=== PATIENT | female | born 1975 | race Two or more races ===

== ENCOUNTER 2016-07-16 10:00 | Emergency (ER) | payer OTHER ==
[2016-07-16 10:09] VITALS: BMI 34.0
[2016-07-16] MEDS ORDERED: FAMOTIDINE 20 MG/50 ML IVPB 20 MG in PREMIX 50 IVPB ONE (10:44)
[2016-07-16] MEDS ORDERED: ONDANSETRON 4 MG/2 ML VIAL IVPB ONE (10:44)
[2016-07-16] MEDS ORDERED: SODIUM CHLORIDE 1,000 ML IV ONE ×2 (10:44→12:19)
--- NOTE | 2016-07-16 10:46 | PDOC ---
History of Present Illness - General History Source: Patient Exam Limitations: No Limitations - History of Present Illness Initial Comments: 07/16/16 12:01 The patient is a 40 year old female, , with a significant past medical history of Hodgkin's Disease in the remote past and HLD who present to the ED with abdominal pain, nausea, vomiting and diarrhea. She notes that she has twisting abdominal pain since yesterday associated with chills, nausea, vomiting and diarrhea. She reports several episodes of vomiting that was clear and yellow nonbloody. She states that she feels better for 10-15 minutes after each vomiting episode. She also reports several episodes of diarrhea that is watery and as clear and yellow in color. She notes that she has difficulty keeping anything down. Her LMP was 07/06. Patient also reports that she has intermittent burning chest pain after vomiting. She states that she was has not seen the air traffic control equipment repairer that her PMD referred her to. She denies any recent abx use. She reports recent sick contact with children with vomiting, no fever or diarrhea. She denies any fever, sob, melena/bpr, recent travel, exertional sypmtoms, leg swelling. Allergies - Sulfur Surgical Hx: C Section x3 Family Hx: Mother HTN <Radha Vasquez - Last Filed: 07/16/16 12:01> <Jovani Sims - Last Filed: 07/16/16 18:48> - General Chief Complaint: Chest Pain Stated Complaint: CHEST PAIN Time Seen by Provider: 07/16/16 10:14 Past History <Radha Vasquez - Last Filed: 07/16/16 12:01> - Past Medical History Anemia: Yes (HODGKIN DISEASE) Asthma: No Cancer: Yes (HODGKINS: 2002) Cardiac Disorders: No CVA: No COPD: No CHF: No Dementia: No Diabetes: No GI Disorders: No Disorders: No HTN: No Hypercholesterolemia: No Liver Disease: No Suicide Attempt (Hx): No Seizures: No Thyroid Disease: No - Surgical History Abdominal Surgery: Yes - Immunization History Td Vaccination: Yes Immunization Up to Date: Yes - Psycho/Social/Smoking Cessation Hx Anxiety: No Suicidal Ideation: No Smoking Status: Yes (ALBANIAN TOBACCO) Smoking History: Never smoked Number of Cigarettes Smoked Daily: 0 Hx Alcohol Use: No Drug/Substance Use Hx: No Substance Use Type: None Hx Substance Use Treatment: No <Jovani Sims - Last Filed: 07/16/16 18:48> - Past Medical History Allergies/Adverse Reactions: Allergies Allergy/AdvReac Type Severity Reaction Status Date / Time Sulfa (Sulfonamide Allergy Rash Verified 07/16/16 10:02 Antibiotics) Home Medications: Ambulatory Orders Ondansetron [Zofran -] 4 mg PO TID PRN #28 tablet 07/16/16 Abd/GI Specific PMHX - Complaint Specific PMHX GERD: No GI Ulcer Disease: No <Jovani Sims - Last Filed: 07/16/16 18:48> Review of Systems - Review of Systems Able to Perform ROS?: Yes Comments:: 07/16/16 12:02 CONSTITUTIONAL: No reported: Fever, Chills, Diaphoresis, Generalized Weakness, Malaise, Loss of Appetite HEENT: No reported: Rhinorrhea, Nasal Congestion, Throat Pain, Throat Swelling, Difficulty Swallowing, Mouth Swelling, Ear Pain, Eye Pain, Visual Changes CARDIOVASCULAR: Reported: chest pain No reported: Syncope, Palpitations, Irregular Heart Rate, Lightheadedness, Peripheral Edema RESPIRATORY: No reported: Cough, Shortness of Breath, SOB with Exertion, Orthopnea, Wheezing , Stridor, Hemoptysis GASTROINTESTINAL: Reported: abdominal pain, nausea, vomiting, diarrhea No reported: Abdominal Distension, Constipation, Melena, Hematochezia GENITOURINARY: No reported: Dysuria, Frequency, Urgency, Hesitancy, Flank Pain, Genital Pain MUSCULOSKELETAL: No reported: Myalgia, Arthralgia, Joint Swelling, Back pain, Neck Pain SKIN: No reported: Rash, Itching, Pallor HEMEATOLOGIC/IMMUNOLOGIC: No reported: Easy Bleeding, Easy Bruising, Lymphadenopathy, Frequent infections ENDOCRINE: No reported: Unexplained Weight Gain, Unexplained Weight Loss, Heat Intolerance , Cold Intolerance NEUROLOGIC: No reported: Headache, Focal Weakness, Paresthesias, Vertigo, Lightheadedness, Unsteady Gait, Seizure, Mental Status Changes, Incontinence PSYCHIATRIC: No reported: Anxiety, Depression <Radha Vasquez - Last Filed: 07/16/16 12:01> *Physical Exam - Vital Signs Last Vital Signs Temp Pulse Resp BP Pulse Ox 98.4 F 101 H 16 116/69 100 07/16/16 10:02 07/16/16 10:50 07/16/16 10:42 07/16/16 10:42 07/16/16 10:50 - Physical Exam Comments: 07/16/16 12:02 GENERAL: The patient is awake, alert, and fully oriented, Nontoxic - in no acute distress. HEAD: Normocephalic, atraumatic. EYES: extraocular movements intact, sclera anicteric, conjunctiva clear. ENT: Normal voice, Moist mucous membranes. NECK: Normal range of motion, supple LUNGS: Breath sounds equal, clear to auscultation bilaterally. No wheezes, no rhonchi, no rales. HEART: Regular rate and rhythm, without murmur, rub or gallop. ABDOMEN: +diffuse abdominal tenderness without focality. Soft, active bowel sounds, no rebound/guarding EXTREMITIES: Normal range of motion, no edema. No clubbing or cyanosis. No cords , erythema, or tenderness. NEUROLOGICAL: No facial asymmetry, Normal speech, moving all 4 extremities spontaneously and symmetrically PSYCH: Normal mood, normal affect. SKIN: Warm, Dry, normal turgor, <Radha Vasquez - Last Filed: 07/16/16 12:01> - Vital Signs Last Vital Signs Temp Pulse Resp BP Pulse Ox 98.4 F 112 H 19 159/102 100 07/16/16 10:02 07/16/16 10:02 07/16/16 10:02 07/16/16 10:02 07/16/16 10:02 <Jovani Sims - Last Filed: 07/16/16 18:48> Heart Score/ECG Review - ECG Impressions Comment:: 07/16/16 11:15 Twelve-lead EKG was performed and reviewed by me. There is normal sinus rhythm with a rate of 113 The axis is normal. The intervals are normal. There is normal R wave progression There are no ST or T wave abnormalities. When compared with prior EKG dated 06/23/2015, the rate has increased by 9 Impression: Sinus tachycardia <Jovani Sims - Last Filed: 07/16/16 18:48> ED Treatment Course - LABORATORY CBC & Chemistry Diagram: 07/16/16 10:45 07/16/16 10:45 - ADDITIONAL ORDERS Additional order review: Laboratory Results 07/16/16 07/16/16 10:45 10:45 Sodium 138 Potassium 4.9 D Chloride 103 Carbon Dioxide 25 Anion Gap 10 BUN 13 Creatinine 0.6 Creat Clearance w eGFR > 60 Random Glucose 103 Calcium 8.8 Total Bilirubin 0.7 D AST 25 D ALT 24 D Alkaline Phosphatase 52 Creatine Kinase 114 Troponin I < 0.02 Total Protein 7.6 Albumin 3.9 Lipase 160 Serum , Qual Negative Urine Color Yellow Urine Appearance Slcloudy Urine pH 5.0 D Ur Specific [place] 1.025 Urine Protein Negative Urine Glucose (UA) Negative Urine Ketones Negative Urine Blood Negative Urine Nitrite Negative Urine Bilirubin Negative Urine Urobilinogen Negative Ur Leukocyte Esterase Trace H Urine RBC 1 Urine WBC None Ur Epithelial Cells Rare Urine Mucus Many 07/16/16 10:45 RBC 4.97 MCV 86.3 MCHC 32.8 RDW 13.8 MPV 9.3 Neutrophils % 84.3 H D Lymphocytes % 10.7 D Monocytes % 4.1 Eosinophils % 0.8 Basophils % 0.1 - Medications Given in the ED: ED Medications Discontinued Medications Generic Name Dose Route Start Last Admin Trade Name Robq PRN Reason Stop Dose Admin Al Hydroxide/Mg Hydroxide 30 ml 07/16/16 11:10 07/16/16 12:01 Mylanta Suspension - PO 07/16/16 11:11 30 ml ONCE ONE Administration Sodium Chloride 1,000 mls @ 1,000 mls/hr 07/16/16 10:44 07/16/16 11:07 Normal Saline - IV 07/16/16 11:43 1,000 mls/hr .Q1H ONE Administration Famotidine/Sodium Chloride 20 50 mls @ 100 mls/hr 07/16/16 10:44 07/16/16 11:11 mg/ Miscellaneous IVPB 07/16/16 11:13 100 mls/hr ONCE ONE Administration Morphine Sulfate 2 mg 07/16/16 11:14 07/16/16 12:00 Morphine Injection - IVPUSH 07/16/16 11:15 2 mg ONCE ONE Administration Ondansetron HCl 4 mg 07/16/16 10:44 07/16/16 11:07 Zofran Injection IVPB 07/16/16 10:45 4 mg ONCE ONE Administration <Radha Vasquez - Last Filed: 07/16/16 12:01> - LABORATORY CBC & Chemistry Diagram: 07/16/16 10:45 07/16/16 10:45 - RADIOLOGY Radiology Studies Ordered: Category Date Time Status CHEST X-RAY PORTABLE* [RAD] Stat Radiology 07/16/16 10:44 Ordered <Jovani Sims - Last Filed: 07/16/16 18:48> Medical Decision Making - Medical Decision Making 07/16/16 11:10 40y F presents with 1 day of abdominal pain, non bloody vomiting and loose yellow stool without blood/melena, fever/chills. Pts kids also has been vomiting. on exam pt is noted to be tachycardic, afebrile, abd shows mild diffuse tenderness. suspect AGE, no focality to suggest appendicitis/ diverticulitis. will treat sypmtomatically with fluids, pain meds, reglan, pepcid/maalox will obtain labs will reassess abdomen, if persistent tenderness, focal tenderness will consider imaging will obtain EKG to screen for acs as pt did have complaint of pain, however i beleive this is likely secondary to her vomiting/reflux A portion of this note was documented by scribe services under my direction. I have reviewed the details of the note, within reason, and agree with the documentation with the following case summary and management plan written by me 07/16/16 13:20 pts labs reviewed unremarakble ua negative for uti pt still feeling some abd pain, pt states she would preer not to obtain a CT at this point. i suspect her sypmtoms are likely secodary to AGE still, however her level of pain is beyond what i would expect. will reasess the pt in a bit and if persistently tender will obtain CT. 07/16/16 14:58 pts still complaining of abd pain, how worse on right side will obtain CT with PO and IV contrast will ontinue hydration 07/16/16 18:41 pt feeling improved pts CT showing no acute signs of inflammation there is mild dilation of the cbd, but there is no changes when compared with prior imaging. ovarian cyst also noted, pt is aware of a right ovarian cyst. the pts IUD also appears somewhat low in psoition - will have the pt fu with her Retail Sales Associate Seasonal regarding positioning of her IUD. will d/c the pt with zofran and supportive management I discussed the physical exam findings, ancillary test results and final diagnoses with the patient. I answered all of the patient's questions. The patient was satisfied with the care received and felt comfortable with the discharge plan and treatment plan. The patient will call their primary care physician within 24 hours to arrange follow-up and will return to the Emergency Department with any new, persistent or worsening symptoms. <Jovani Sims - Last Filed: 07/16/16 18:48> *DC/Admit/Observation/Transfer - Attestations Scribe Attestion: 07/16/16 12:02 Documentation prepared by VICKI Jamison, acting as director biomedical engineering for Jovani Sims MD. <Radha Vasquez - Last Filed: 07/16/16 12:01> - Discharge Dispostion Admit: No <Jovani Sims - Last Filed: 07/16/16 18:48> Diagnosis at time of Disposition: Gastroenteritis Abdominal pain Qualifiers: Abdominal location: generalized Qualified Code(s): R10.84 - Generalized abdominal pain - Discharge Dispostion Disposition: HOME Condition at time of disposition: Improved - Prescriptions Prescriptions: Ondansetron [Zofran -] 4 mg PO TID PRN #28 tablet PRN Reason: Nausea - Referrals Referrals: [facility] [Provider Group] - Patient Instructions Printed Discharge Instructions: DI for Viral Gastroenteritis -- Adult Additional Instructions: Return to the emergency department immediately with ANY new, persistent or worsening symptoms including worsening abdominal pain, fevers, inability to tolerate oral intake, chest pain, shortness of breath or any other concerns. Stay well hydrated. Clear liquids only for the next 6 hours.. After that if you have had no further vomiting you may have bananas, rice, applesauce, or toast. If no further vomiting for another 8 hours you may have regular food. If you vomit again then nothing to eat or drink for 2 hours. Take one of the ondansatrone. then start back with the clear liquids. Return to the emergency department immediately with ANY new, persistent or worsening symptoms. You MUST call and follow up with your doctor in 2-3 days if not better. Please make sure your doctor reviews the results of your emergency evaluation Your Cat scan of your abdomen revealed that your IUD may be mispositioned, please follow up with your steamer gum candy for reevalaution of your IUD. Print Language: PORTUGUESE
[2016-07-16] MEDS ORDERED: ONDANSETRON 4 MG/2 ML VIAL ONE (10:55)
[2016-07-16 10:56] LABS: BASOPHIL 0.1 % (0-2.0); EOSINOPHIL 0.8 % (0-4.5); MCH 28.3 pg (25.7-33.7); MCHC 32.8 g/dl (32.0-36.0); MEAN CELL VOLUME 86.3 fl (80-96); MEAN PLT VOLUME 9.3 fl (7.5-11.1); NEUTROPHILS 84.3 % (42.8-82.8); PLATELET COUNT 257 K/MM3 (134-434); RDW 13.8 % (11.6-15.6); WHITE BLOOD COUNT 5.4 K/mm3 (4.0-10.0)
[2016-07-16 11:02] LABS: URINE APPEARANCE SLCLOUDY; URINE BILIRUBIN NEGATIVE (NEGATIVE); URINE BLOOD NEGATIVE (NEGATIVE); URINE COLOR YELLOW; URINE GLUCOSE (UA) NEGATIVE (NEGATIVE); URINE KETONE NEGATIVE (NEGATIVE); URINE NITRITE NEGATIVE (NEGATIVE); URINE PROTEIN NEGATIVE (NEGATIVE); URINE UROBILINOGEN NEGATIVE E.U./dl (0.2-1.0)
[2016-07-16 11:03] LABS: URINE LEUK ESTERASE TRACE (NEGATIVE)
[2016-07-16 11:08] LABS: URINE MUCUS MANY; URINE RBC 1 /hpf (0-3)
[2016-07-16] MEDS ORDERED: FAMOTIDINE 20 MG/50 ML IVPB 50 ML IVPB ONE (11:09)
[2016-07-16] MEDS ORDERED: MAG HYDROX/AL HYDROX/SIMETH 355 ML ORAL.SUSP PO ONE (11:10)
[2016-07-16] MEDS ORDERED: morphine CARPU-JECT 2 MG/1 ML DISP.SYRIN IVPUSH ONE (11:14)
[2016-07-16 11:20] LABS: ALBUMIN 3.9 g/dl (3.4-5.0); ANION GAP 10 (8-16); CALCIUM 8.8 mg/dL (8.5-10.1); CO2 25 mmol/L (21-32); GLUCOSE,RANDOM 103 mg/dL (74-106)
[2016-07-16 11:25] LABS: ALK PHOS 52 U/L (45-117); BILIRUBIN,TOTAL 0.7 mg/dL (0.2-1.0); CREATININE 0.6 mg/dL (0.55-1.02); SGPT/ALT 24 U/L (12-78); TOT PROT 7.6 g/dl (6.4-8.2); TROPONIN I < 0.02 ng/ml (0.00-0.05)
[2016-07-16 11:27] LABS: SGOT/AST 25 U/L (15-37)
[2016-07-16] MEDS ORDERED: morphine CARPU-JECT 2 MG/1 ML DISP.SYRIN ONE (11:47)
[2016-07-16] MEDS ORDERED: MAG HYDROX/AL HYDROX/SIMETH 30 ML UNIT-DOSE CUP ONE (11:47)
[2016-07-16] MEDS ORDERED: morphine CARPU-JECT 4 MG/1 ML DISP.SYRIN IVPUSH ONE (12:19)
[2016-07-16] MEDS ORDERED: morphine CARPU-JECT 4 MG/1 ML DISP.SYRIN ONE (13:07)
--- NOTE | 2016-07-16 17:44 | EKG ---
Test Reason : Blood Pressure : / mmHG Vent. Rate : 113 BPM Atrial Rate : 113 BPM P-R Int : 144 ms QRS Dur : 072 ms QT Int : 320 ms P-R-T Axes : 057 027 030 degrees QTc Int : 438 ms SINUS TACHYCARDIA POSSIBLE LEFT ATRIAL ENLARGEMENT BORDERLINE ECG WHEN COMPARED WITH ECG OF 23-JUN-2015 19:41, NO SIGNIFICANT CHANGE WAS FOUND Confirmed by LAURA ROSE MD ([id number]) on 07/16/2016 5:44:28 PM Referred By: Confirmed By:LAURA ROSE MD
[2016-07-16] MEDS ORDERED: ACETAMINOPHEN 325 MG TABLET (FP) PO ONE (18:33)
[2016-07-16] MEDS ORDERED: ACETAMINOPHEN 325 MG TABLET (FP) ONE (18:42)
[2016-07-16 19:03] VITALS: BP 108/69; PULSE 91; TEMP 98.9
== END 2016-07-16 19:05 | disposition home or self-care (01) ==
LOC: JER 10:00
PROC: 3E033GC Introduction of Other Therapeutic Substance into Peripheral Vein, Percutaneous Approach (ICD-10-PCS; principal; 2016-07-16)
PROC: 3E033NZ Introduction of Analgesics, Hypnotics, Sedatives into Peripheral Vein, Percutaneous Approach (ICD-10-PCS; 2016-07-16)
DX: K52.9 Noninfective gastroenteritis and colitis, unspecified (principal)
CPT/HCPCS: 36415; 71010-TC; 74177-TC; 80053; 81003; 81015; 82550; 83690; 84484; 84703; 85025; 93005; 93010; 96365; 96375; 99285-25

== ENCOUNTER 2018-09-03 05:04 | Day surgery (SDC) | payer OTHER ==
[2018-09-01 17:34] VITALS: BMI 37.2
[2018-09-03] MEDS ORDERED: SODIUM CHLORIDE 0.9% P/F 10 ML VIAL IJ ONE (10:29)
[2018-09-03] MEDS ORDERED: LIDOCAINE HCL/PF 2% SDV 5ML VIAL ONE (10:29)
[2018-09-03] MEDS ORDERED: DEXAMETHASONE SOD PHOSPHATE 4 MG/1 ML VIAL ONE ×2 (10:29→12:34)
[2018-09-03] MEDS ORDERED: MIDAZOLAM HCL 2 MG/2 ML SINGLE DOSE VIAL ONE ×2 (11:36→12:34)
--- NOTE | 2018-09-03 12:17 | HP ---
History & Physical Update - History History: No Change - Physical Physical: No Change - Assessment Assessment: No Change - Plan Plan: No Change (No change in HP done 09/01/18)
--- NOTE | 2018-09-03 12:19 | OP ---
Operative Note - Note: Operative Date: 09/03/18 Pre-Operative Diagnosis: Endometrial polyp Operation: Hysteroscopic myomectomy. Suction DC Findings: endometrial polyps and submucosal myomas Post-Operative Diagnosis: Same as Pre-op Surgeon: Yolanda Vincent Anesthesiologist/THEORETICAL PHYSICIST: Gualberto Oliva Anesthesia: General Operative Report Dictated: Yes
[2018-09-03] MEDS ORDERED: PROPOFOL 20 ML ONE (12:34)
[2018-09-03] MEDS ORDERED: ONDANSETRON 4 MG/2 ML VIAL IVPUSH PRN (13:54)
[2018-09-03] MEDS ORDERED: oxyCODONE HCL 5 MG TABLET PO PRN ×2 (13:54)
[2018-09-03] MEDS ORDERED: LACTATED RINGERS SOLUTION 1,000 ML IV SCH (14:00)
[2018-09-03] MEDS ORDERED: HYDROmorphone HCl 2 MG/ML VIAL ONE (15:06)
[2018-09-03] MEDS ORDERED: ACETAMINOPHEN INJECTION 100 ML IVPB ONE (15:16)
[2018-09-03] MEDS ORDERED: oxyCODONE HCL 5 MG TABLET ONE (15:28)
[2018-09-03] MEDS ORDERED: ACETAMINOPHEN 1000 MG/100 ML VIAL (NON FORMULARY) IVPB ONE (15:30)
--- NOTE | 2018-09-03 15:39 | OP ---
DATE OF OPERATION: 09/03/2018 PREOPERATIVE DIAGNOSIS: Endometrial polyps. OPERATION: 1. Hysteroscopic myomectomy. 2. Fractional dilatation and curettage. POSTOPERATIVE DIAGNOSIS: Endometrial polyps. SURGEON: Yolanda Vincent MD ANESTHESIA: General. DESCRIPTION OF PROCEDURE: Patient was taken to the operating room, placed in the dorsal lithotomy position, prepped and draped in the usual sterile fashion. A timeout was performed in accordance with hospital regulation. Speculum was placed in the vagina. Anterior lip of the cervix was grasped with a single-toothed tenaculum. Cervix was then dilated to accommodate the operative hysteroscope. Visualization revealed endometrial polyps and submucosal myomas. Cautery and cutting of the anterior and posterior wall as well as side mead revealed multiple myomas and polyps. Suction dilatation and curettage was then performed. Repeat procedure was then done. Endometrial cavity appeared to be clean. All contents were suctioned, and all instruments were then removed. The patient tolerated the procedure well. Estimated blood loss was about 20 mL. YOLANDA VINCENT M.D. CARLA/[id number]
[2018-09-03] MEDS ORDERED: HYDROmorphone HCl 2 MG/ML VIAL IVPUSH ONE (16:00)
[2018-09-03] MEDS ORDERED: ONDANSETRON 4 MG/2 ML VIAL ONE (16:44)
[2018-09-03] MEDS ORDERED: ONDANSETRON 4 MG/2 ML VIAL IVPB ONE (16:45)
[2018-09-03] MEDS ORDERED: oxyCODONE HCL 5 MG TABLET PO ONE (16:50)
[2018-09-03 17:30] VITALS: TEMP 98.2
[2018-09-03 19:18] VITALS: BP 138/72; PULSE 76
--- NOTE | 2018-09-04 12:51 | PATH ---
Surgical Pathology Report Patient Name: LINA JUAREZ [facility]. Rec. #: [id number] /Age/Gender: 1975 (Age: 42) / F Account: [id number] Location: [facility] SURGICAL Taken: 09/03/2018 Received: 09/03/2018 Reported: 09/04/2018 Physicians: Yolanda Vincent M.D. Specimen(s) Received ENDOMETRIUM POLYP Clinical History Endometrial polyp Final Diagnosis ENDOMETRIUM, POLYPECTOMY: DISORDERED PROLIFERATIVE ENDOMETRIUM WITH SUPERFICIAL ADENOMYOSIS. NO ENDOMETRIAL HYPERPLASIA OR CARCINOMA IDENTIFIED. Electronically Signed Michele Crowell M.D. Gross Description Received in formalin labeled "polyp," is a 2.8 x 2.3 x 0.3 cm aggregate of walters-red soft tissue fragments. The formalin is filtered and the specimen is entirely submitted in one cassette. /09/03/2018 saudi09/03/2018
== END 2018-09-03 18:45 | disposition home or self-care (01) ==
LOC: JASU-SURG 05:04
PROVIDERS: ATTEND Obstetrics & Gynecology
PROC: 0UJD8ZZ Inspection of Uterus and Cervix, Via Natural or Artificial Opening Endoscopic (ICD-10-PCS; 2018-09-03)
PROC: 0UB98ZZ Excision of Uterus, Via Natural or Artificial Opening Endoscopic (ICD-10-PCS; principal; 2018-09-03 11:00)
PROC: 0UDB7ZX Extraction of Endometrium, Via Natural or Artificial Opening, Diagnostic (ICD-10-PCS; 2018-09-03 11:00)
DX: D25.0 Submucous leiomyoma of uterus (principal)
CPT/HCPCS: 88305-TC; 94760; J0131

== ENCOUNTER 2018-09-09 01:16 | Inpatient (IN) | payer OTHER ==
[2018-09-09] MEDS ORDERED: SODIUM CHLORIDE 1,000 ML IV STA (02:27)
[2018-09-09] MEDS ORDERED: HYDROmorphone HCL CARPU-JECT 2 MG/1 ML DISP.SYRIN IVPUSH ONE ×3 (02:27→04:59)
[2018-09-09] MEDS ORDERED: FAMOTIDINE 20 MG/50 ML IVPB 20 MG/50 ML MG IVPB ONE ×2 (02:27→02:48)
--- NOTE | 2018-09-09 02:27 | PDOC ---
History of Present Illness - General Chief Complaint: Pain, Acute Stated Complaint: ABD PAIN Time Seen by Provider: 09/09/18 02:21 History Source: Patient - History of Present Illness Initial Comments: 09/09/18 02:51 42 year old female with right sided abdominal pain radiating to the epigastric area and now to chest pain since 12 pm. decreased appetite and nausea reported. denies fever/ chills, urinary symptoms. PMHX: had hysterocopy 1 week ago. denies fever/ chills. 09/09/18 03:00 Past History - Past Medical History Allergies/Adverse Reactions: Allergies Allergy/AdvReac Type Severity Reaction Status Date / Time Sulfa (Sulfonamide Allergy Severe Rash Verified 09/09/18 02:34 Antibiotics) hydromorphone [From Dilaudid] AdvReac Intermediate Itching Verified 09/09/18 07: 06 Home Medications: Ambulatory Orders Cholecalciferol (Vitamin D3) [Vitamin D3] 2,000 unit PO DAILY 07/31/16 Amlodipine Besylate 2.5 mg PO DAILY 09/01/18 Iron 1 tab PO DAILY 09/01/18 Acetaminophen W/ Codeine #3 [Tylenol # 3 -] 1 tab PO Q4H PRN #20 tablet MDD 6 Docusate Sodium [Colace -] 300 mg PO HS #30 capsule 09/12/18 Pantoprazole Sodium [Protonix -] 20 mg PO BID #60 tablet.ec 09/12/18 Anemia: Yes (HODGKIN DISEASE) Asthma: No Cancer: Yes (HODGKINS: 2002) Cardiac Disorders: No CVA: No COPD: No CHF: No Dementia: No Diabetes: No GI Disorders: No Disorders: No HTN: Yes Hypercholesterolemia: Yes Liver Disease: No Seizures: No Thyroid Disease: No - Surgical History Abdominal Surgery: Yes Appendectomy: No Cardiac Surgery: No Cholecystectomy: No Lung Surgery: No Neurologic Surgery: No Orthopedic Surgery: Yes (CTR RIGHT) - Immunization History Td Vaccination: Yes Immunization Up to Date: Yes - Suicide/Smoking/Psychosocial Hx Smoking Status: Yes ([place] TOBACCO) Smoking History: Never smoked Have you smoked in the past 12 months: No Number of Cigarettes Smoked Daily: 0 Hx Alcohol Use: No Drug/Substance Use Hx: No Substance Use Type: None Hx Substance Use Treatment: No Abd/GI Specific PMHX - Complaint Specific PMHX GERD: No GI Ulcer Disease: No Review of Systems - Review of Systems Able to Perform ROS?: Yes Is the patient limited Nauruan proficient: No Constitutional: No: Symptoms Reported, See HPI, Chills, Diaphoresis, Fever, Loss of Appetite, Malaise, Night Sweats, Weakness, Weight Stable, Unintentional Wgt. Loss, Unexplained wgt Loss, Other Respiratory: No: Symptoms reported, See HPI, Cough, Orthopnea, Shortness of Breath, SOB with Exertion, SOB at Rest, Stridor, Wheezing, Productive cough, Hemoptysis, Other ABD/GI: Yes: Nausea, Vomiting, Abdominal cramping : No: Symptoms Reported, See HPI, Burning, Dysuria, Discharge, Frequency, Flank Pain, Hematuria, Incontinence, Pain, Urgency, Testicular Mass, Testicular Swelling, Lesions, Testicular Pain, Other Musculoskeletal: No: Symptoms Reported, See HPI, Back Pain, Gout, Joint Pain, Joint Swelling, Muscle Pain, Muscle Weakness, Neck Pain, Joint Stiffness, Other Integumentary: No: Symptoms Reported, See HPI, Bruising, Change in Color, Change in Hair/Nails, Dryness, Erythema, Flushing, Lesions, Lumps, Pallor, Pruritus, Rash, Sweating, Other *Physical Exam - Vital Signs 09/09/18 02:53 Last Vital Signs Temp Pulse Resp BP Pulse Ox 98.7 F 89 16 120/75 100 09/09/18 01:16 09/09/18 01:16 09/09/18 01:16 09/09/18 01:16 09/09/18 01:16 - Physical Exam General Appearance: Yes: Mild Distress Respiratory/Chest: positive: Lungs Clear, Normal Breath Sounds. negative: Chest Tender Cardiovascular: positive: Regular Rhythm, Regular Rate Gastrointestinal/Abdominal: positive: Normal Bowel Sounds, Tender (epigastric , RUQ/ RLQ), Soft Extremity: positive: Normal Capillary Refill, Normal Inspection, Normal Range of Motion Integumentary: positive: Normal Color, Dry, Warm Neurologic: positive: Fully Oriented, Alert, Normal Mood/Affect ED Treatment Course - LABORATORY CBC & Chemistry Diagram: 09/12/18 07:00 09/12/18 07:00 Progress Note - Progress Note Progress Note: A: abdominal pain; chest pain P; CBC CMp lipase troponin EKG CTAP Medical Decision Making - Medical Decision Making 09/09/18 05:20 CTAP: 4.8 cm and 4.6 cm cystic structures right adnexa, probably ovarian. Consider pelvic ultrasound for further evaluation. No bowel obstruction, colitis, diverticulitis, free fluid or free air. Normal appendix. Unremarkable pancreas, kidneys and gallbladder. Steatosis liver. Right lower lobe nodule measuring less than 4 mm average dimension, possibly inflammatory. Patient signed out to [facility] [place] pending U/S and pain control. *DC/Admit/Observation/Transfer Diagnosis at time of Disposition: Pelvic pain Ovarian cyst Qualifiers: Laterality: right Qualified Code(s): N83.201 - Unspecified ovarian cyst, right side - Discharge Dispostion Disposition: HOME Condition at time of disposition: Stable - Prescriptions - Referrals - Patient Instructions - Post Discharge Activity
[2018-09-09] MEDS ORDERED: ONDANSETRON 4 MG/2 ML VIAL IVPUSH ONE (02:32)
--- NOTE | 2018-09-09 02:36 | PDOC ---
*Physical Exam - Vital Signs Last Vital Signs Temp Pulse Resp BP Pulse Ox 98.7 F 89 16 120/75 100 09/09/18 01:16 09/09/18 01:16 09/09/18 01:16 09/09/18 01:16 09/09/18 01:16 ED Treatment Course - LABORATORY CBC & Chemistry Diagram: 09/09/18 03:13 09/09/18 03:13 Medical Decision Making - Medical Decision Making 09/09/18 02:35 Patient seen by the advanced practice provider under my direct supervision. Ancillary testing reviewed as necessary. I agree with plan as outlined by the advanced practice provider. *DC/Admit/Observation/Transfer Diagnosis at time of Disposition: Abdominal pain Qualifiers: Abdominal location: generalized Qualified Code(s): R10.84 - Generalized abdominal pain Chest pain Qualifiers: Chest pain type: other chest pain Qualified Code(s): R07.89 - Other chest pain - Discharge Dispostion Condition at time of disposition: Fair - Referrals Referrals: Marquita Abdul MD [Primary Care Provider] - - Patient Instructions - Post Discharge Activity
[2018-09-09] MEDS ORDERED: HYDROmorphone HCl 2 MG/ML VIAL ONE ×2 (02:48→17:38)
[2018-09-09] MEDS ORDERED: ONDANSETRON 4 MG/2 ML VIAL ONE (02:48)
[2018-09-09 03:21] LABS: EPI CELLS 7.5 /HPF (0-5); PH,URINE 7.5 (5.0-8.0); URINE APPEARANCE CLEAR; URINE BACTERIA 290.3 /hpf (NEGATIVE); URINE BILIRUBIN NEGATIVE (NEGATIVE); URINE CASTS 11 /hpf (0-8); URINE COLOR YELLOW; URINE GLUCOSE (UA) NEGATIVE (NEGATIVE); URINE KETONE NEGATIVE (NEGATIVE); URINE LEUK ESTERASE TRACE (NEGATIVE); URINE NITRITE NEGATIVE (NEGATIVE); URINE PROTEIN TRACE (NEGATIVE); URINE RBC 6 /hpf (0-4); URINE WBC 3 /hpf (0-5)
[2018-09-09 03:36] LABS: BASO % 0.6 % (0-2.0); EOS % 0.5 % (0-4.5); HEMATOCRIT 33.4 % (32.4-45.2); HEMOGLOBIN 10.7 GM/dL (10.7-15.3); LYMPH % 17.2 % (8-40); MCH 25.8 pg (25.7-33.7); MEAN CELL VOLUME 80.6 fl (80-96); MEAN PLT VOLUME 9.1 fl (7.5-11.1); MONO % 6.4 % (3.8-10.2); NEUT % 75.3 % (42.8-82.8); PLATELET COUNT 265 K/MM3 (134-434); RBC 4.14 M/mm3 (3.60-5.2); RDW 14.4 % (11.6-15.6); WHITE BLOOD COUNT 6.2 K/mm3 (4.0-10.0)
[2018-09-09 04:01] LABS: ALBUMIN 3.3 g/dl (3.4-5.0); ALK PHOS 73 U/L (45-117); ANION GAP 8 MMOL/L (8-16); BILIRUBIN,TOTAL 0.4 mg/dL (0.2-1); BLOOD UREA NITROGEN 11 mg/dL (7-18); CALCIUM 8.6 mg/dL (8.5-10.1); CHLORIDE 104 mmol/L (98-107); CO2 23 mmol/L (21-32); CREATININE 0.6 mg/dL (0.55-1.3); GLUCOSE,RANDOM 138 mg/dL (74-106); LIPASE 301 U/L (73-393); POTASSIUM 4.1 mmol/L (3.5-5.1); SGOT/AST 39 U/L (15-37); SGPT/ALT 73 U/L (13-61); SODIUM 135 mmol/L (136-145); TOT PROT 6.8 g/dl (6.4-8.2)
[2018-09-09] MEDS ORDERED: ACETAMINOPHEN 1000 MG/100 ML VIAL (NON FORMULARY) IVPB ONE (05:28)
[2018-09-09] MEDS ORDERED: ACETAMINOPHEN INJECTION 100 ML IVPB ONE (05:32)
[2018-09-09] MEDS ORDERED: METOCLOPRAMIDE HCL INJECTION 10 MG/2 ML VIAL IVPB ONE (05:37)
[2018-09-09] MEDS ORDERED: METOCLOPRAMIDE HCL INJECTION 10 MG/2 ML VIAL ONE (05:51)
--- NOTE | 2018-09-09 07:17 | PDOC ---
*Physical Exam - Vital Signs Last Vital Signs Temp Pulse Resp BP Pulse Ox 98.7 F 86 18 102/66 100 09/09/18 01:16 09/09/18 06:39 09/09/18 06:39 09/09/18 06:39 09/09/18 06:39 - Physical Exam General Appearance: Yes: Appropriately Dressed. No: Apparent Distress HEENT: positive: Normal Voice Neck: positive: Supple Respiratory/Chest: negative: Respiratory Distress Musculoskeletal: negative: CVA Tenderness Integumentary: positive: Dry, Warm Neurologic: positive: Fully Oriented, Alert, Normal Mood/Affect ED Treatment Course - LABORATORY CBC & Chemistry Diagram: 09/09/18 03:13 09/09/18 03:13 - ADDITIONAL ORDERS Additional order review: Laboratory Results 09/09/18 09/09/18 09/09/18 03:15 03:13 03:13 Sodium 135 L Potassium 4.1 Chloride 104 Carbon Dioxide 23 Anion Gap 8 BUN 11 Creatinine 0.6 Creat Clearance w eGFR 109.63 Random Glucose 138 H Calcium 8.6 Total Bilirubin 0.4 AST 39 H ALT 73 H Alkaline Phosphatase 73 Troponin I < 0.02 Total Protein 6.8 Albumin 3.3 L Lipase 301 Serum , Qual Negative Urine Color Urine Appearance Urine pH Ur Specific [place] Urine Protein Urine Glucose (UA) Urine Ketones Urine Blood Urine Nitrite Urine Bilirubin Urine Urobilinogen Ur Leukocyte Esterase Urine WBC (Auto) Urine RBC (Auto) Urine Casts (Auto) U Epithel Cells (Auto) Urine Bacteria (Auto) 09/09/18 03:05 Sodium Potassium Chloride Carbon Dioxide Anion Gap BUN Creatinine Creat Clearance w eGFR Random Glucose Calcium Total Bilirubin AST ALT Alkaline Phosphatase Troponin I Total Protein Albumin Lipase Serum , Qual Urine Color Yellow Urine Appearance Clear Urine pH 7.5 D Ur Specific [place] 1.028 Urine Protein Trace Urine Glucose (UA) Negative Urine Ketones Negative Urine Blood Trace Urine Nitrite Negative Urine Bilirubin Negative Urine Urobilinogen 1.0 Ur Leukocyte Esterase Trace Urine WBC (Auto) 3 Urine RBC (Auto) 6 Urine Casts (Auto) 11 U Epithel Cells (Auto) 7.5 Urine Bacteria (Auto) 290.3 09/09/18 03:13 RBC 4.14 MCV 80.6 MCHC 32.0 RDW 14.4 MPV 9.1 Neutrophils % 75.3 D Lymphocytes % 17.2 D Monocytes % 6.4 Eosinophils % 0.5 Basophils % 0.6 - Medications Given in the ED: ED Medications Discontinued Medications Generic Name Dose Route Start Last Admin Trade Name Jennifer PRN Reason Stop Dose Admin Acetaminophen 1,000 mg 09/09/18 05:28 09/09/18 05:31 Ofirmev Injection - IVPB 09/09/18 05:29 1,000 mg ONCE ONE Administration Diphenhydramine HCl 25 mg 09/09/18 06:52 09/09/18 07:02 Benadryl Injection - IVPUSH 09/09/18 06:53 25 mg ONCE ONE Administration Hydromorphone HCl 0.5 mg 09/09/18 02:27 09/09/18 03:21 Dilaudid Injection - IVPUSH 09/09/18 02:28 Not Given ONCE ONE Hydromorphone HCl 1 mg 09/09/18 02:45 09/09/18 03:21 Dilaudid Injection - IVPUSH 09/09/18 02:46 1 mg ONCE ONE Administration Hydromorphone HCl 1 mg 09/09/18 04:59 09/09/18 05:04 Dilaudid Injection - IVPUSH 09/09/18 05:00 1 mg ONCE ONE Administration Famotidine/Sodium Chloride 20 mg in 50 mls @ 100 mls/hr 09/09/18 02:27 03:20 Pepcid 20 Mg Premixed Ivpb - IVPB 09/09/18 02:56 100 mls/hr ONCE ONE Administration Sodium Chloride 1,000 mls @ 1,000 mls/hr 09/09/18 02:27 09/09/18 03:20 Normal Saline - IV 09/09/18 03:26 1,000 mls/hr ASDIR STA Administration Metoclopramide HCl 10 mg 09/09/18 05:37 09/09/18 05:57 Reglan Injection - IVPB 09/09/18 05:38 10 mg ONCE ONE Administration Ondansetron HCl 4 mg 09/09/18 02:32 09/09/18 03:20 Zofran Injection IVPUSH 09/09/18 02:33 4 mg ONCE ONE Administration Medical Decision Making - Medical Decision Making 09/09/18 07:12 Pt signed out to me by ALBERTINA Gallegos 42 yo F, s/p csection remotely, here w/ upper/lower abd pain. Labs neg. Complicated R cyst on CT. Per prior team, pPain presently controlled w/ dilaudid. US RUQ and pelvis pending 09/09/18 11:06 On reassessment, pt states pain controlled at present. Pt now informs me that 4 days ago she had ?D&C 4 days ago for menorrhagia w/ Dr Vincent and states she was doing well immediately after procedure but started having RLQ/periumbilical pain yesterday w/ n/v. US pelvis still pending. Will perform pelvic exam at this time 09/09/18 12:04 Exam remarkable for R adnexal tenderness only. Of note, pt denies vag discharge or h/o STDs. Sexually active w/ only per pt. Ultrasound report now back and reads as ~4x3 cm R ovarian cyst w/ documented venous flow but no definite arterial flow. Arterial/vascular flow seen on the L. Concern is for possible torsion. Pt now states pain is returning. Will continue to manage pain and get emergent MACHINE HOOP MAKER HELPER consult at this time 09/09/18 12:19 Called the office of Dr. Vincent and told Dr. Fisher is covering for M.D., today. I spoke to Dr. Fisher who was in the OR and discussed case. Per M.D, order pre-op labs and admit to her service for OR. Pt's last po intake was yesterday *DC/Admit/Observation/Transfer Diagnosis at time of Disposition: Pelvic pain Ovarian cyst Qualifiers: Laterality: right Qualified Code(s): N83.201 - Unspecified ovarian cyst, right side - Discharge Dispostion Condition at time of disposition: Fair Decision to Admit order: Yes - Referrals Referrals: Marquita Abdul MD [Primary Care Provider] - - Patient Instructions - Post Discharge Activity
--- NOTE | 2018-09-09 10:10 | EKG ---
Test Reason : Blood Pressure : / mmHG Vent. Rate : 096 BPM Atrial Rate : 096 BPM P-R Int : 154 ms QRS Dur : 078 ms QT Int : 346 ms P-R-T Axes : 055 037 043 degrees QTc Int : 437 ms NORMAL SINUS RHYTHM POSSIBLE LEFT ATRIAL ENLARGEMENT BORDERLINE ECG WHEN COMPARED WITH ECG OF 16-JUL-2016 10:06, NONSPECIFIC T WAVE ABNORMALITY NOW EVIDENT IN ANTERIOR LEADS Confirmed by FAWAD MIRANDA, LAWRENCE ([id number]) on 09/09/2018 10:10:47 AM Referred By: Confirmed By:LAWRENCE CELESTIN MD
[2018-09-09] MEDS ORDERED: morphine CARPU-JECT 4 MG/1 ML DISP.SYRIN IVPUSH ONE (12:03)
[2018-09-09] MEDS ORDERED: morphine SULFATE 4 MG/ML VIAL ONE (12:11)
--- NOTE | 2018-09-09 13:30 | HP ---
Admitting History and Physical - Admission Chief Complaint: Abdominal pain. History of Present Illness: 42 y/o female with h/o ovarian cyst presents to the ED with acute abdominal pain and nausea/vomiting. Recently had a D&C for abnormal bleeding on 09/03. Upon ultrasound examination and CT scan today, there is concern for right ovarian torsion. History Source: Patient, Medical Record - Past Medical History Cardiovascular: Yes: HTN Gastrointestinal: Yes: Other (fatty liver) Hepatobiliary: Yes: Other (fatty liver) Reproductive: Yes: Other (c section X 3). No: Ectopic , Endometriosis , Fibroids ...LMP: 06/28/18 Heme/Onc: Yes: Other (h/o hodgkins disease 2001) Musculoskeletal: Yes: Chronic low back pain - Past Surgical History Past Surgical History: Yes: - Smoking History Smoking history: Never smoked Have you smoked in the past 12 months: No Aproximately how many cigarettes per day: 0 - Alcohol/Substance Use Hx Alcohol Use: No History of Substance Use: reports: None - Social History Usual Living Arrangement: Yes: With Spouse ADL: Independent History of Recent Travel: No Home Medications - Allergies Allergies/Adverse Reactions: Allergies Allergy/AdvReac Type Severity Reaction Status Date / Time Sulfa (Sulfonamide Allergy Severe Rash Verified 09/09/18 02:34 Antibiotics) hydromorphone [From Dilaudid] AdvReac Intermediate Itching Verified 09/09/18 07: 06 - Home Medications Home Medications: Ambulatory Orders Cholecalciferol (Vitamin D3) [Vitamin D3] 2,000 unit PO DAILY 07/31/16 Amlodipine Besylate 25 mg PO DAILY 09/01/18 Iron 1 tab PO DAILY 09/01/18 Review of Systems - Review of Systems Constitutional: denies: Chills, Fever, Weakness HENT: reports: No Symptoms Neck: reports: No Symptoms Gastrointestinal: reports: Abdominal Pain, Nausea, Vomiting Endocrine: reports: No Symptoms Hematology/Lymphatic: reports: No Symptoms Psychiatric: reports: No Symptoms Physical Examination Vital Signs: Vital Signs Temperature 98.7 F 09/09/18 01:16 Pulse Rate 81 09/09/18 12:16 Respiratory Rate 18 09/09/18 06:39 Blood Pressure 120/68 09/09/18 12:16 O2 Sat by Pulse Oximetry (%) 99 09/09/18 12:16 Constitutional: Yes: Well Nourished, Calm, Mild Distress Eyes: Yes: Conjunctiva Clear, EOM Intact HENT: Yes: Atraumatic Neck: Yes: Supple Cardiovascular: Yes: Regular Rate and Rhythm Respiratory: Yes: Regular Gastrointestinal: Yes: Soft, Tenderness (RLQ pain, no rebound, no guarding) Extremities: Yes: WNL Neurological: Yes: Alert, Oriented Psychiatric: Yes: Alert, Oriented Labs: CBC, BMP 09/09/18 03:13 09/09/18 03:13 Imaging - Results Cat Scan: Report Reviewed Ultrasound: Report Reviewed, Image Reviewed Problem List - Problems (1) Ovarian cyst Code(s): N83.209 - UNSPECIFIED OVARIAN CYST, UNSPECIFIED SIDE Qualifiers: Laterality: right Qualified Code(s): N83.201 - Unspecified ovarian cyst, right side (2) Pelvic pain Code(s): R10.2 - PELVIC AND PERINEAL PAIN Assessment/Plan 42 y/o female with abdominal pain and ovarian cyst noted, concern for ovarian torsion AFVSS NPO plan for laparoscopy possible ovarian cystectomy, possible detorsion, possible oophorectomy pt aware of plan anesthesia/OR aware
[2018-09-09 13:59] LABS: INR 1.02 (0.83-1.09)
[2018-09-09] MEDS ORDERED: DEXAMETHASONE SOD PHOSPHATE 4 MG/1 ML VIAL ONE (14:32)
[2018-09-09] MEDS ORDERED: LIDOCAINE HCL/PF 2% SDV 5ML VIAL ONE (14:32)
[2018-09-09] MEDS ORDERED: KETOROLAC TROMETHAMINE 30 MG/1 ML VIAL ONE (14:32)
[2018-09-09] MEDS ORDERED: GLYCOPYRROLATE 0.2 MG/1 ML VIAL ONE (14:32)
[2018-09-09] MEDS ORDERED: MIDAZOLAM HCL 2 MG/2 ML SINGLE DOSE VIAL ONE (14:38)
[2018-09-09] MEDS ORDERED: PROPOFOL 20 ML ONE ×2 (14:38→16:24)
[2018-09-09] MEDS ORDERED: ROCURONIUM BROMIDE 50 MG/5 ML VIAL ONE (14:42)
[2018-09-09] MEDS ORDERED: NEOSTIGMINE METHYLSULFATE 0.5 MG/ML - 10 ML MDV ONE (16:21)
[2018-09-09] MEDS ORDERED: BUPIVACAINE HCL/PF (5 MG/ML) 30 ML VIAL IJ ONE (16:22)
--- NOTE | 2018-09-09 16:53 | OP ---
Operative Note - Note: Operative Date: 09/09/18 Pre-Operative Diagnosis: ABD pain, possible right ovarian torsion Operation: Diagnostic laparoscopy, right ovarian cystectomy Findings: Hemoperitoneum (pelvis). No identifiable source of bleeding identified. Post-Operative Diagnosis: Same as Pre-op Surgeon: Eliza Fisher Farmworker Rice: Monty Oneil Anesthesiologist/GENERAL EXPEDITOR: Gualberto Oliva Anesthesia: General Specimens Removed: Right ovarian cyst wall Estimated Blood Loss (mls): 20 Fluid Volume Replaced (mls): 1,000 Operative Report Dictated: Yes
--- NOTE | 2018-09-09 16:54 | OP ---
Operative Note - Note: Operative Date: 09/09/18 Pre-Operative Diagnosis: abdominal pain, right ovarian cyst, concern for possible ovarian torsion Operation: laparoscopic right ovarian cystectomy, evacuation of hemoperitoneum Findings: approx 50 cc of hemoperitoneum noted upon entry into abdomen right ovarian cyst Post-Operative Diagnosis: Same as Pre-op Surgeon: Eliza Fisher (intraop consult with Dr. Fuentes due to unknown source of bleeding) Family Practice Medical Doctor: Monty Oneil Anesthesiologist/LIBRARY HELPER: Gualberto Oliva Anesthesia: General Specimens Removed: right ovarian cyst wall Estimated Blood Loss (mls): 50 Operative Report Dictated: Yes
--- NOTE | 2018-09-09 16:55 | SURG ---
Surgery Certified Adaptive Physical Educator Note Certified Adaptive Physical Educator: Monty Oneil PA-C Date of Service: 09/09/18 Diagnosis: ABD pain, possible right ovarian torsion Procedure: Diagnostic laparoscopy, right ovarian cystectomy. (No ovarian torsion identified ) I was present for the entirety of the operative procedure. For further detail, please refer to operative report. Visit type - Case Type Case Type: ED Admission - Emergency Emergency Visit: Yes Care time: The patient presented to the Emergency Department on the above date and was hospitalized for further evaluation of their emergent condition. - New patient This patient is new to me today: Yes Date on this admission: 09/09/18
[2018-09-09] MEDS ORDERED: oxyCODONE HCL 5 MG TABLET PO PRN (17:31)
[2018-09-09] MEDS: HYDROmorphone HCL CARPU-JECT 2 MG/1 ML DISP.SYRIN IVPUSH PRN ×4 (17:38→18:08)
[2018-09-09] MEDS ORDERED: LORazepam 2 MG/ML SDV VIAL ONE (17:46)
[2018-09-09] MEDS ORDERED: LORazepam 2 MG/ML SDV VIAL IVPUSH ONE (17:47)
[2018-09-09] MEDS ORDERED: HYDROmorphone HCl 2 MG/ML VIAL IVPUSH PRN (18:49)
[2018-09-09] MEDS: oxyCODONE HCL 5 MG TABLET PO PRN (22:38)
[2018-09-09] MEDS ORDERED: PHENOL 177 ML SPRAY BOTTLE MM PRN (22:51)
[2018-09-09] MEDS ORDERED: IBUPROFEN 800 MG/8 ML IJ IVPB PRN (22:52)
[2018-09-09] MEDS ORDERED: SIMETHICONE 80 MG TAB.CHEW (FP) PO PRN (22:52)
[2018-09-09] MEDS ORDERED: diphenhydrAMINE HCL 25 MG CAPSULE (FP) PO ONE ×2 (23:27→23:45)
--- NOTE | 2018-09-10 07:48 | PN ---
Progress Note (short form) - Note Progress Note: POD #1 Alert. Supine in bed. No acute events since surgery per RN notes. Pt still c/o abd pain (mid-epigastric) same as prior to surgery. Powell dc'd prior too my arrival this morning. Patient has got oob and ambulated to bathroom but hasn't voided yet. Denies n/v/f/c, CP, palpitations, SOB or PALM Last Vital Signs Temp Pulse Resp BP Pulse Ox 98.3 F 91 H 20 122/52 L 98 09/10/18 06:00 09/10/18 06:00 09/10/18 06:00 09/10/18 06:00 09/09/18 19:57 CBC, BMP 09/09/18 03:13 09/09/18 03:13 Gen: nad ABD: all surgical ports c/d/i. No hematoma. + bowel sounds in all quadrants. LE: SCDs bilat. Soft. NT. Problem List - Problems (1) Abdominal pain Assessment/Plan: POD #1 s/p Laparoscopic right ovarian cystectomy, evacuation of hemoperitoneum. Unable to identify source of hemoperitoneum after thorough inspection of abd. Visualized a normal appearing Appendix, negative Meckle's, fallopian tubes intact bilat, normal appearing gall bladder. Small bowel and Colon normal appearance. After suction/irrigation of abd the blood did not appear to reaccumulate. Incentive Spirometer Reg Diet f/u CBC, BMP, Amylase, Lipase Pain management PRN Trial of void in progress If all LABS normal, cleared for DC home today Above plan discussed with Dr. Fisher and agrees Code(s): R10.9 - UNSPECIFIED ABDOMINAL PAIN Qualifiers: Abdominal location: generalized Qualified Code(s): R10.84 - Generalized abdominal pain (2) Ovarian cyst Code(s): N83.209 - UNSPECIFIED OVARIAN CYST, UNSPECIFIED SIDE Qualifiers: Laterality: right Qualified Code(s): N83.201 - Unspecified ovarian cyst, right side
--- NOTE | 2018-09-10 07:49 | OP ---
DATE OF OPERATION: 09/09/2018 PREOPERATIVE DIAGNOSIS: Abdominal pain, concern for ovarian torsion, right ovarian cyst. POSTOPERATIVE DIAGNOSIS: Abdominal pain, concern for ovarian torsion, right ovarian cyst. PROCEDURE: Laparoscopic right ovarian cystectomy, evacuation of hemoperitoneum with intraoperative surgical consult with Dr. Fuentes. SURGEON: Eliza Fisher MD [facility] VICE PRESIDENT: MARTHA Padilla ANESTHESIA: General. ANESTHESIOLOGIST: Gualberto Oliva MD COMPLICATIONS: None. SPECIMENS REMOVED: Include portions of right ovarian cyst wall. ESTIMATED BLOOD LOSS: 50 mL. DISPOSITION: Stable to the PACU. COUNTS: Sponge, needle, and instrument counts correct. BRIEF HISTORY AND PROCEDURE: Patient is a 42-year-old female who has been seen in the emergency department with complaints of severe abdominal pain radiating to the epigastric area, and upon CT imaging and ultrasound examination was found to have a right ovarian cyst. On ultrasound examination, there was concern for ovarian torsion and due to the patients significant pain, her nausea and her vomiting, and her other complaints, she was planned to go to the OR for diagnostic laparoscopy, possible ovarian cystectomy, and possible detorsion of the ovary if ovarian torsion was noted. Patient signed consents for the procedure, and she was taken back to the operating room, given general anesthesia, and placed in the dorsal lithotomy position. A 5-mm skin incision was created in the umbilicus, and a Veress needle was placed intraabdominally. The abdomen was insufflated with CO2 gas. A 5-mm trocar was placed in the umbilical incision. The camera was inserted, and after confirmation of intraabdominal placement, two bilateral lower quadrant 5-mm ports were placed. Upon entry into the abdomen, approximately 50 mL of hemoperitoneum was noted in the anterior portion of the pelvis, some in the posterior cul-de-sac and some in bilateral gutters. No clear source of bleeding was identified. Left ovary and tube appeared to be normal. The right fallopian tube appeared to be normal. There was some scarring from the anterior uterus to the anterior abdominal wall secondary to prior C-sections, and an approximately 3-4-cm right ovarian cyst was noted. No other intraabdominal pathology was appreciated. On the right ovary, an incision was made on the ovarian stroma and ovarian cyst wall was grasped and bluntly dissected away from the ovarian tissue in several pieces and then sent to Pathology for permanent evaluation. Excellent hemostasis was achieved. After this portion of the procedure, due to the intraperitoneal bleeding that was noted upon initial examination, thorough examination of the abdomen was completed, which included an intraoperative consult with General Surgery, Dr. Fuentes, to evaluate for sources of bleeding. Bilateral ovaries appeared to be normal. No bleeding was appreciated. Anterior and posterior to the uterus and posterior cul-de-sac revealed no evidence of bleeding. The appendix appeared to be normal. Liver and gallbladder and omentum appeared to be normal, and inspection for any kind of Meckels diverticulum was completed and none was appreciated. At this time, this pelvis was irrigated and suctioned. All instruments were removed from the abdomen after noticing adequate hemostasis. Abdomen was desufflated. The incisions were reapproximated with 4-0 Biosyn and skin glue, and the patient was awoken from anesthesia in stable condition. She was sent to the floor for observation for a 24-hour stay to be sure her pain was improved. LEIZA FISHER DO /[id number]
[2018-09-10] MEDS: oxyCODONE HCL 5 MG TABLET PO PRN ×2 (08:46→13:24)
[2018-09-10 09:35] LABS: BASO % 0.1 % (0-2.0); HEMATOCRIT 29.1 % (32.4-45.2); HEMOGLOBIN 9.4 GM/dL (10.7-15.3); LYMPH % 17.2 % (8-40); MCH 25.9 pg (25.7-33.7); MCHC 32.4 g/dl (32.0-36.0); MEAN CELL VOLUME 79.9 fl (80-96); MONO % 5.9 % (3.8-10.2); NEUT % 76.8 % (42.8-82.8); PLATELET COUNT 231 K/MM3 (134-434); RBC 3.64 M/mm3 (3.60-5.2); RDW 14.5 % (11.6-15.6); WHITE BLOOD COUNT 8.2 K/mm3 (4.0-10.0)
[2018-09-10] MEDS: CHOLECALCIFEROL (VITAMIN D3) 1,000 UNIT TABLET (FP) PO SCH (09:48)
[2018-09-10] MEDS: amLODIPine BESYLATE 2.5 MG TABLET (FP) PO SCH (09:49)
[2018-09-10] MEDS: FERROUS SO4 325 MG TABLET (FP) PO SCH (09:49)
[2018-09-10] MEDS: BENZOCAINE/MENTH/CETYLPYRD CL 1 EACH LOZENGE MM PRN (09:49)
[2018-09-10] MEDS ORDERED: AMLODIPINE BESYLATE PO SCH (10:00)
[2018-09-10 10:02] LABS: AMYLASE 33 U/L (25-115); ANION GAP 8 MMOL/L (8-16); BLOOD UREA NITROGEN 6 mg/dL (7-18); CALCIUM 7.7 mg/dL (8.5-10.1); CHLORIDE 107 mmol/L (98-107); CO2 24 mmol/L (21-32); CREATININE 0.5 mg/dL (0.55-1.3); GLUCOSE,RANDOM 87 mg/dL (74-106); LIPASE 87 U/L (73-393); POTASSIUM 3.9 mmol/L (3.5-5.1); SODIUM 139 mmol/L (136-145)
--- NOTE | 2018-09-10 14:34 | PN ---
Progress Note (short form) - Note Progress Note: called to evaluate patient with pain out or proportion POD#1 right ovarian cystectomy Patient seen and examined at bedside c/o severe epigastric pain, nausea and mild RLQ pain which she states is unchanged from her pre-op symptoms which she experienced for 1 day before presenting to the ED on 09/09/18. She is urinating but only @ 50cc since suazo was removed this morning. PE: A&Ox3, Distress and tearful 2/2 pain ABD: obese, soft, ND with severe pain to palpation of epigastric area and mildly TTP throughout appropriate to status. No pulsitile mass, incisions C/D/I , IMP: POD #1 right Ovarin cystectomy with pain out of proportion of unclear etiology and low urine output since suazo removed this morning. 1) post void bladder scan- straight cath PRN 2) Admit to inpatient services 3) Consult GI to evaluate epigastric pain 4) Pain medication adjusted 5) OOB as tolerated 6) encourage IS 7) Encourage PO fluids Evaluation and plan discussed with Dr Fisher.
[2018-09-10 14:51] VITALS: BMI 38.4
[2018-09-10] MEDS: MORPHINE SULFATE 2 MG/ML VIAL IVPUSH PRN ×3 (14:58→23:50)
--- NOTE | 2018-09-10 15:38 | CON.GI ---
Consult Consult Specialty:: GI Referred by:: MARHTA Pitt Reason for Consultation:: Abdominal pain - History of Present Illness Chief Complaint: mid abdominal pain History of Present Illness: 42F admitted last last night for evaluation of abdominal pain. The patient describes sharp, knife like pain in the mid abdomen starting around 7pm friday night. This was accompanied by nausea and episodes of non-bloody, bilious vomiting. when examined last night it was felt that the pain radiated to the RLQ and patient underwent laparoscopy by clinical material handler yesterday. The surgical PA explains that a right ovarian cystectomy was performed and that there was no evidence of ovarian torsion. hemoperitoneum was identified in the pelvis. Because of this, washing were performed and Dr. Fuentes from surgery was asked to evaluate intraoperatively as well. Per Dr. Fuentes, there were no acute findings. Currently, the patient complains of continued mid abdominal pain ( supraumbilical). She is requiring morphine. She denies similar episodes in the past. She had an abdominal US revealing fatty liver, a 2.1cm gallstone, no evidence of cholecystitis and a non-dilated biliary tract. hepatopedal flow was noted in the main portal vein. She had a CT scan of the abdomen and pelvis with IV contrast revealing two right ovarian cysts and no acute findings. Lipase was normal on admission and on repeat. She denies a history a chronic NSAID use. She denies change in bowel habits. She denies rectal bleeding, melena, fevers/chills. There is no family history of colorectal cancer or other GI malignancy. She was told by her PMD of having liver chemistries that were elevated preoperatively. she had recent D&C 329 secondary to heavy vaginal bleeding. - History Source History Provided By: Patient, Medical Record Limitations to Obtaining History: No Limitations - Past Medical History Cardio/Vascular: Yes: HTN, Hyperlipdemia Gastrointestinal: Yes: Other (fatty liver) Hepatobiliary: Yes: Other (fatty liver) ...LMP: 08/31/18 ...: No Musculoskeletal: Yes: Chronic low back pain - Past Surgical History Past Surgical History: Yes: (x 3) Additional Surgical History: D&C 09/04 secondary to vaginal bleeding - Alcohol/Substance Use Hx Alcohol Use: No History of Substance Use: reports: None - Smoking History Smoking history: Never smoked Have you smoked in the past 12 months: No Aproximately how many cigarettes per day: 0 - Social History Usual Living Arrangement: With Spouse ADL: Independent Occupation: [employer] of : Other ([employer]) Came to [place]year[place] 2008 History of Recent Travel: No Home Medications - Allergies Allergies/Adverse Reactions: Allergies Allergy/AdvReac Type Severity Reaction Status Date / Time Sulfa (Sulfonamide Allergy Severe Rash Verified 09/09/18 02:34 Antibiotics) hydromorphone [From Dilaudid] AdvReac Intermediate Itching Verified 09/09/18 07: 06 - Home Medications Home Medications: Ambulatory Orders Cholecalciferol (Vitamin D3) [Vitamin D3] 2,000 unit PO DAILY 07/31/16 Amlodipine Besylate 25 mg PO DAILY 09/01/18 Iron 1 tab PO DAILY 09/01/18 Acetaminophen W/ Codeine #3 [Tylenol # 3 -] 1 tab PO Q4H PRN #20 tablet MDD 6 Family Disease History - Family Disease History Family Disease History: Other: Father (: 65: post-op complications), Mother (alive: healthy), Son (2, healthy), Daughter (1, healthy) Other Family History: No family history of colorectal cancer or other GI malignancy Review of Systems - Review of Systems Constitutional: denies: Fever Cardiovascular: denies: Chest Pain Respiratory: denies: Cough Gastrointestinal: reports: Abdominal Pain, Constipation (since admission), Nausea, Vomiting (prior to admission). denies: Diarrhea, Melena, Rectal Bleeding, Vomiting Blood Physical Exam-GI Vital Signs: Vital Signs Temperature 99.1 F 09/10/18 14:57 Pulse Rate 101 H 09/10/18 14:57 Respiratory Rate 20 09/10/18 14:57 Blood Pressure 138/66 09/10/18 14:57 O2 Sat by Pulse Oximetry (%) 97 09/10/18 14:54 Constitutional: Yes: Calm Eyes: No: Sclera Icterus Cardiovascular: Yes: Regular Rate and Rhythm. No: Murmur Respiratory: Yes: CTA Bilaterally Gastrointestinal Inspection: Yes: Scars (new trochar scars: RLQ, left abdomen and periumbilical. + low pelvic surgical scar) ...Palpate: Yes: Soft, Tenderness (at trochar sites, also marked supraumbilical mid abdomen (states that this is the pain she was experiencing prior to admission). No RUQ TTP, negative robledo's sign) ...Percussion: No: Tympanitic Edema: Yes (trace b/l LE edema) Neurological: Yes: Alert Labs: CBC, BMP 09/10/18 08:46 09/10/18 08:46 INR, PTT INR 1.02 (0.83-1.09) 09/09/18 12:35 Hepatic Panel Total Bilirubin 0.4 mg/dL (0.2-1) 09/09/18 03:13 AST 39 U/L (15-37) H 09/09/18 03:13 ALT 73 U/L (13-61) H 09/09/18 03:13 Alkaline Phosphatase 73 U/L (45-117) 09/09/18 03:13 Albumin 3.3 g/dl (3.4-5.0) L 09/09/18 03:13 Imaging - Results Cat Scan: Report Reviewed, Image Reviewed Ultrasound: Report Reviewed Problem List - Problems (1) Abdominal pain Assessment/Plan: persistent mid abdominal pain of unclear etiology at this point. The fact that she is s/p laparoscopy yesterday confounds the exam as well, but patient states that the mid abdominal pain is the same as it was prior to surgery. No RUQ TTP that would suggest cholecystitis. Advise: Surgical reevaluation Ordered CT scan with PO contrast to evaluate bowel NPO except meds IV hydration AM labs Post op care per clinical material handler Code(s): R10.9 - UNSPECIFIED ABDOMINAL PAIN Qualifiers: Abdominal location: generalized Qualified Code(s): R10.84 - Generalized abdominal pain (2) Transaminitis Assessment/Plan: Pito describes being told of levated loiver chemistries on preop lab work prior to D&C. Fatty liver noted on US/CT scan. Suspect fatty liver contributing to this. Screening hepatitis A/B/C serologies. monitor LFTs. Code(s): R74.0 - NONSPEC ELEV OF LEVELS OF TRANSAMNS & LACTIC ACID DEHYDRGNSE
[2018-09-10] MEDS ORDERED: PT OWN MED DRAWER 7, Y5N ONE (18:52)
[2018-09-10] MEDS: SODIUM CHLORIDE 1,000 ML IV SCH (23:51)
[2018-09-11] MEDS: MORPHINE SULFATE 2 MG/ML VIAL IVPUSH PRN ×4 (06:35→21:20)
[2018-09-11] MEDS: BENZOCAINE/MENTH/CETYLPYRD CL 1 EACH LOZENGE MM PRN (06:39)
[2018-09-11 07:13] LABS: BASO % 0.3 % (0-2.0); EOS % 0.9 % (0-4.5); HEMATOCRIT 28.3 % (32.4-45.2); HEMOGLOBIN 8.9 GM/dL (10.7-15.3); LYMPH % 41.2 % (8-40); MCH 25.4 pg (25.7-33.7); MCHC 31.5 g/dl (32.0-36.0); MEAN CELL VOLUME 80.8 fl (80-96); MEAN PLT VOLUME 8.5 fl (7.5-11.1); NEUT % 48.6 % (42.8-82.8); PLATELET COUNT 214 K/MM3 (134-434); RDW 14.7 % (11.6-15.6)
[2018-09-11 07:37] LABS: ALBUMIN 2.8 g/dl (3.4-5.0); ALK PHOS 55 U/L (45-117); ANION GAP 8 MMOL/L (8-16); BILIRUBIN,TOTAL < 0.1 mg/dL (0.2-1); BLOOD UREA NITROGEN 8 mg/dL (7-18); CALCIUM 7.4 mg/dL (8.5-10.1); CHLORIDE 110 mmol/L (98-107); CO2 24 mmol/L (21-32); CREATININE 0.5 mg/dL (0.55-1.3); GLUCOSE,RANDOM 92 mg/dL (74-106); POTASSIUM 3.7 mmol/L (3.5-5.1); SGOT/AST 41 U/L (15-37); SGPT/ALT 64 U/L (13-61); SODIUM 142 mmol/L (136-145); TOT PROT 5.5 g/dl (6.4-8.2)
[2018-09-11 07:40] LABS: ALBUMIN 2.7 g/dl (3.4-5.0); BILIRUBIN,DIRECT 0.1 mg/dL (0.0-0.2); BILIRUBIN,TOTAL 0.2 mg/dL (0.2-1); TOT PROT 5.5 g/dl (6.4-8.2)
--- NOTE | 2018-09-11 08:54 | PN ---
Progress Note, Physician - Current Medication List Current Medications: Active Medications Amlodipine Besylate (Norvasc -) 2.5 mg PO DAILY [facility] Last Admin: 09/10/18 09:49 Dose: 2.5 mg Benzocaine/Menthol (Cepacol Lozenge -) 1 each MM Q6H PRN PRN Reason: SORE THROAT Last Admin: 09/11/18 06:39 Dose: 1 each Cholecalciferol (Vitamin D3 -) 2,000 unit PO DAILY [facility] Last Admin: 09/10/18 09:48 Dose: 2,000 unit Ferrous Sulfate (Feosol -) 325 mg PO DAILY [facility] Last Admin: 09/10/18 09:49 Dose: 325 mg Sodium Chloride (Normal Saline -) 1,000 mls @ 125 mls/hr IV ASDIR [facility] Last Admin: 09/10/18 23:51 Dose: 125 mls/hr Ibuprofen (Caldolor Injection -) 600 mg IVPB Q6H PRN PRN Reason: FEVER Morphine Sulfate (Morphine Sulfate) 2 mg IVPUSH Q3H PRN PRN Reason: breakthrough pain Last Admin: 09/11/18 06:35 Dose: 2 mg Oxycodone HCl (Roxicodone -) 5 mg PO Q4H PRN PRN Reason: PAIN LEVEL 1-5 Oxycodone HCl (Roxicodone -) 10 mg PO Q4H PRN PRN Reason: PAIN LEVEL 6-10 Last Admin: 09/10/18 13:24 Dose: 10 mg Simethicone (Mylicon -) 80 mg PO Q4H PRN PRN Reason: GAS - Objective Vital Signs: Vital Signs Temperature 98.2 F 09/11/18 06:13 Pulse Rate 88 09/11/18 06:13 Respiratory Rate 20 09/11/18 06:13 Blood Pressure 119/72 09/11/18 06:13 O2 Sat by Pulse Oximetry (%) 97 09/10/18 21:00 Labs: CBC, BMP 09/11/18 06:00 09/11/18 06:00 INR, PTT INR 1.02 (0.83-1.09) 09/09/18 12:35 Problem List - Problems (1) Ovarian cyst Code(s): N83.209 - UNSPECIFIED OVARIAN CYST, UNSPECIFIED SIDE Qualifiers: Laterality: right Qualified Code(s): N83.201 - Unspecified ovarian cyst, right side (2) Pelvic pain Code(s): R10.2 - PELVIC AND PERINEAL PAIN Assessment/Plan supraumbilical pain/epigastric pain. CT with PO contrast showed RLQ cyst, not ovarian (ovarian cyst was removed laparoscopically on 09/09/18) could be retroperitoneal, should not be source of epigastric pain. appreciate GI consult GI recommended surgical re-eval, consult entered now continue observation/pain management
[2018-09-11] MEDS ORDERED: MAG HYDROX/AL HYDROX/SIMETH 30 ML UNIT-DOSE CUP PO PRN (09:10)
[2018-09-11] MEDS ORDERED: DOCUSATE SODIUM 100 MG CAPSULE (FP) PO PRN (09:25)
--- NOTE | 2018-09-11 09:26 | PN ---
Progress Note (short form) - Note Progress Note: POD 2, s/p laparoscopic right ovarian cystectomy, evacuation of hemoperitoneum Pt seen and examined on Am rounds. Continues to have abdominal pain, requesting change in pain regimen. Tearful at time of evaluation. NPO. Voiding without issue. Has been oob to the restroom. Denies cp/sob, n/v/d, calf pain/edema. Vital Signs Temp 98.7 F 09/11/18 15:38 Pulse 81 09/11/18 15:38 Resp 20 09/11/18 15:38 BP 136/74 09/11/18 15:38 Pulse Ox 99 09/11/18 15:38 Intake & Output 09/10/18 09/11/18 09/11/18 23:59 11:59 23:59 Intake Total 930 200 Output Total 250 1150 Balance -250 -220 200 Intake: IV 850 200 Normal Saline - 1,000 ml 850 @ 125 mls/hr IV ASDIR ANGELES Rx#:[id number] Oral 80 Output: Urine 250 1150 Powell 250 Void 1150 Other: Voiding Method Toilet Toilet # Unmeasured Voids Powell 1 Void 2 Bowel Movement No No CBC, BMP 09/11/18 13:30 09/11/18 06:00 Gen: awake, alert, nad Resp: unlabored on RA Abdo, soft, +TTP in epigastric region, +ttp around incisions (appropriate to status), incisions c/d/im no erythema or drainage. A/P: 42 y/o F w/ PMHx ovarian cyst admitted on 09/09 with acute abdominal pain and nausea/vomiting, now POD 2, s/p laparoscopic right ovarian cystectomy, evacuation of hemoperitoneum. Afebrile, VSS H/H trending down Pt planned for EGD -Case discussed with Dr Mckeon, will transfer to medical service for further workup/management of Gi issues. d/w attending Dr Fisher
[2018-09-11] MEDS: FERROUS SO4 325 MG TABLET (FP) PO SCH (10:17)
[2018-09-11] MEDS: amLODIPine BESYLATE 2.5 MG TABLET (FP) PO SCH (10:17)
[2018-09-11] MEDS: CHOLECALCIFEROL (VITAMIN D3) 1,000 UNIT TABLET (FP) PO SCH (10:17)
[2018-09-11] MEDS ORDERED: PANTOPRAZOLE 40 MG TABLET (FP) PO SCH (11:00)
[2018-09-11] MEDS: oxyCODONE HCL 5 MG TABLET PO PRN (11:22)
--- NOTE | 2018-09-11 12:21 | PN.GI ---
GI Progress Note Subjective: CT scan yesterday revealed question of thickening at pylorus Pain persists, somewhat improved - Objective Vital Signs: Vital Signs Temperature 98.5 F 09/11/18 11:54 Pulse Rate 79 09/11/18 11:54 Respiratory Rate 20 09/11/18 11:54 Blood Pressure 149/87 09/11/18 11:54 O2 Sat by Pulse Oximetry (%) 99 09/11/18 09:00 Constitutional: Calm Eyes: No: Sclera Icterus Cardiovascular: Yes: Regular Rate and Rhythm Respiratory: Yes: CTA Bilaterally Gastrointestinal Inspection: No: Distention ...Auscultate: Yes: Normoactive Bowel Sounds ...Palpate: Yes: Tenderness (TTP epigastrium) ...Percussion: No: Tympanitic Edema: No (No LE edema) Neurological: Yes: Alert Labs: CBC, BMP 09/11/18 06:00 09/11/18 06:00 INR, PTT INR 1.02 (0.83-1.09) 09/09/18 12:35 - ....Imaging Cat Scan: Report Reviewed, Image Reviewed Problem List - Problems (1) Abdominal pain Assessment/Plan: Discussed upper endoscopy with Ms. Don to further evaluate the CT scan findings. Discussed potential risks of the procedure like but not limited to bleeding, perforation requiring surgery to repair, infection, sedation medication effects all of which could be potentially life threatening. She has agreed to the procedure. NPO PPI D/C'd NSAID analgesia in the interim Ordered repeat CBC for 1pm today EGD this afternoon Code(s): R10.9 - UNSPECIFIED ABDOMINAL PAIN Qualifiers: Abdominal location: generalized Qualified Code(s): R10.84 - Generalized abdominal pain (2) Transaminitis Assessment/Plan: continued outpatient evaluation. Fatty liver reidentified on CT scan Screening hepatitis serologies pending Code(s): R74.0 - NONSPEC ELEV OF LEVELS OF TRANSAMNS & LACTIC ACID DEHYDRGNSE
[2018-09-11] MEDS ORDERED: MIDAZOLAM HCL 2 MG/2 ML SINGLE DOSE VIAL ONE (12:54)
[2018-09-11 13:45] LABS: HEMATOCRIT 29.1 % (32.4-45.2); HEMOGLOBIN 9.2 GM/dL (10.7-15.3); MCH 25.7 pg (25.7-33.7); MCHC 31.7 g/dl (32.0-36.0); MEAN CELL VOLUME 81.1 fl (80-96); MEAN PLT VOLUME 8.8 fl (7.5-11.1); PLATELET COUNT 230 K/MM3 (134-434); RBC 3.59 M/mm3 (3.60-5.2); RDW 15.1 % (11.6-15.6); WHITE BLOOD COUNT 5.8 K/mm3 (4.0-10.0)
--- NOTE | 2018-09-11 14:49 | PN ---
Progress Note (short form) - Note Progress Note: EGD complete. Report left in procedural section of physical chart and will be scanned into [email or web address] Problem List - Problems (1) Abdominal pain Code(s): R10.9 - UNSPECIFIED ABDOMINAL PAIN Qualifiers: Abdominal location: generalized Qualified Code(s): R10.84 - Generalized abdominal pain (2) Transaminitis Code(s): R74.0 - NONSPEC ELEV OF LEVELS OF TRANSAMNS & LACTIC ACID DEHYDRGNSE
--- NOTE | 2018-09-11 16:36 | PATH ---
Cytology Non-Gynecological Report Patient Name: LINA JUAREZ Med. Rec. #: [id number] /Age/Gender: 1975 (Age: 42) / F Account: [id number] Location: [facility] MED/SURG Taken: 09/09/2018 Received: 09/10/2018 Reported: 09/11/2018 Physicians: Yolanda Vincent M.D. PHYSICIAN EMERGENCY DEPT Specimen(s) Received SEDIMENT FROM URINE IN [facility] Clinical History Right ovarian cyst Final Diagnosis SEDIMENT FROM URINE IN [facility] AND URINE FOR CYTOLOGY: SATISFACTORY FOR EVALUATION. NEGATIVE FOR HIGH GRADE UROTHELIAL CARCINOMA. SCATTERED UROTHELIAL CELLS WITH DEGENERATIVE CHANGES AND SQUAMOUS EPITHELIAL CELLS PRESENT. RARE UROTHELIAL FRAGMENTS PRESENT. Comment: Presence of urothelial fragments are suggestive of prior instrumentation. Suggest clinical/radiologic correlation. See concurrent material ([id number]). Electronically Signed Lisy Butler M.D. Gross Description Approximately 30 cc of yellow fluid received fresh. One cytofunnel prepared and Pap stained.
--- NOTE | 2018-09-11 17:02 | PATH ---
Surgical Pathology Report Patient Name: LINA JUAREZ Med. Rec. #: [id number] /Age/Gender: 1975 (Age: 42) / F Account: [id number] Location: [facility] MED/SURG Taken: 09/09/2018 Received: 09/10/2018 Reported: 09/11/2018 Physicians: Eliza Fisher M.D. PHYSICIAN EMERGENCY DEPT Specimen(s) Received PORTION OF CYST WALL FROM RIGHT OVARY Clinical History Ovarian cyst Final Diagnosis PORTION OF CYST WALL, RIGHT OVARY, EXCISION: BENIGN FIBROMEMBRANOUS TISSUE COMPATIBLE WITH CYST WALL. NO DEFINITIVE EPITHELIAL LINING IDENTIFIED. Comment: See concurrent cytology ([id number]). A Electronically Signed Lisy Butler M.D. Gross Description Received in formalin labeled "portion of cyst wall," is a 0.6 x 0.5 x 0.1 cm aggregate of walters brown portions of soft tissue, possibly consistent with portions of cyst wall. The specimen is submitted in toto in one cassette. /09/10/2018 [facility]09/10/2018
--- NOTE | 2018-09-11 17:20 | CONSULT ---
- Consultation REQUESTING PROVIDER: Natalia CRAFT CONSULT REQUEST: We have been asked to surgically evaluate this patient for ( specify). PCP:Oma Mckeon HISTORY OF PRESENT ILLNESS: CTSP for epigastric pain after recent laparoscopic ovarian cystectomy w/o evidence of ovarian torsion. patient still has pain after recent surgery; I was present yesterday intraop for observation at the request of Dr. Fisher at which time no general surgery issues were identified. 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 ABDOMEN: Soft, tender in epigastrium, not distended, normoactive bowel sounds, no guarding e/f port sites, no rebound, no masses. No organomegaly. MUSCULOSKELETAL: Normal ROM at all joints. No bony deformities or tenderness. No CVA tenderness. UPPER EXTREMITIES: 2+ pulses, warm, well-perfused. No cyanosis. Cap refill <2 seconds. No peripheral edema. LOWER EXTREMITIES: 2+ pulses, warm, well-perfused. No calf tenderness. No peripheral edema. NEUROLOGICAL: Normal speech, gait not observed. PSYCH: Cooperative. Good eye contact. Appropriate mood and affect. SKIN: Warm, dry, normal turgor, no rashes or lesions noted. Vital Signs Temperature 98.7 F 09/11/18 15:38 Pulse Rate 81 09/11/18 15:38 Respiratory Rate 20 09/11/18 15:38 Blood Pressure 136/74 09/11/18 15:38 O2 Sat by Pulse Oximetry (%) 99 09/11/18 15:38 Lab Results WBC 5.8 K/mm3 (4.0-10.0) 09/11/18 13:30 RBC 3.59 M/mm3 (3.60-5.2) L 09/11/18 13:30 Hgb 9.2 GM/dL (10.7-15.3) L 09/11/18 13:30 Hct 29.1 % (32.4-45.2) L 09/11/18 13:30 MCV 81.1 fl (80-96) 09/11/18 13:30 MCHC 31.7 g/dl (32.0-36.0) L 09/11/18 13:30 RDW 15.1 % (11.6-15.6) 09/11/18 13:30 Plt Count 230 K/MM3 (134-434) 09/11/18 13:30 Sodium 142 mmol/L (136-145) 09/11/18 06:00 Potassium 3.7 mmol/L (3.5-5.1) 09/11/18 06:00 Chloride 110 mmol/L (98-107) H 09/11/18 06:00 Carbon Dioxide 24 mmol/L (21-32) 09/11/18 06:00 Anion Gap 8 MMOL/L (8-16) 09/11/18 06:00 BUN 8 mg/dL (7-18) 09/11/18 06:00 Creatinine 0.5 mg/dL (0.55-1.3) L 09/11/18 06:00 Random Glucose 92 mg/dL (74-106) 09/11/18 06:00 Calcium 7.4 mg/dL (8.5-10.1) L 09/11/18 06:00 Blood Type A POSITIVE 09/09/18 12:35 Antibody Screen Negative 09/09/18 12:35 INR 1.02 (0.83-1.09) 09/09/18 12:35 CT a/p reviewed IMP; abdominal pain PLAN: Agree w/GI evaluation and EGD; will f/u as needed; d/w Dr. Monte after EGD findings; prn surgical f/u.
[2018-09-11] MEDS: SODIUM CHLORIDE 1,000 ML IV SCH (18:11)
--- NOTE | 2018-09-11 18:18 | PN ---
Physical Exam: SUBJECTIVE: Patient seen and examined at bedside. Transferred to medicine service for further mgmt of abdominal pain, anemia and abnormal EGD findings. Upon interview, patient states that she continues to be in pain (8/10 w/o meds, 4/10 w/ meds) which is currently controlled on her current regimen. Patient denies chest pain, SOB, fever, chills. OBJECTIVE: Vital Signs Period Temp Pulse Resp BP Sys/Powell Pulse Ox Last 24 Hr 98.2 F-99 F 76-88 12-20 119-149/66-87 97-100 GENERAL: The patient is awake, alert, and fully oriented, in no acute distress. NECK: Trachea midline, full range of motion, supple. LUNGS: Breath sounds equal, clear to auscultation bilaterally, no wheezes, no crackles, no accessory muscle use. HEART: Regular rate and rhythm, S1, S2 without murmur, rub or gallop. ABDOMEN: Soft, nontender, nondistended, normoactive bowel sounds, no guarding, no rebound, no hepatosplenomegaly, no masses. EXTREMITIES: 2+ pulses, warm, well-perfused, no edema. NEUROLOGICAL: Cranial nerves II through X grossly intact. Normal speech, gait not observed. SKIN: Warm, dry, normal turgor, no rashes or lesions noted Laboratory Results - last 24 hr 09/09/18 09/11/18 09/11/18 12:07 06:00 06:00 WBC 6.0 RBC 3.50 L Hgb 8.9 L Hct 28.3 L MCV 80.8 MCH 25.4 L MCHC 31.5 L RDW 14.7 Plt Count 214 MPV 8.5 Absolute Neuts (auto) 2.9 Neutrophils % 48.6 D Lymphocytes % 41.2 H D Monocytes % 9.0 Eosinophils % 0.9 D Basophils % 0.3 Nucleated RBC % 0 Sodium 142 Potassium 3.7 Chloride 110 H Carbon Dioxide 24 Anion Gap 8 BUN 8 Creatinine 0.5 L Creat Clearance w eGFR 135.30 Random Glucose 92 Calcium 7.4 L Total Bilirubin < 0.1 L Direct Bilirubin AST 41 H ALT 64 H Alkaline Phosphatase 55 Total Protein 5.5 L Albumin 2.8 L C. trachomatis (JONNY) Negative N. gonorrhoeae (JONNY) Negative 09/11/18 09/11/18 06:00 13:30 WBC 5.8 RBC 3.59 L Hgb 9.2 L Hct 29.1 L MCV 81.1 MCH 25.7 MCHC 31.7 L RDW 15.1 Plt Count 230 MPV 8.8 Absolute Neuts (auto) Neutrophils % Lymphocytes % Monocytes % Eosinophils % Basophils % Nucleated RBC % Sodium Potassium Chloride Carbon Dioxide Anion Gap BUN Creatinine Creat Clearance w eGFR Random Glucose Calcium Total Bilirubin 0.2 Direct Bilirubin 0.1 AST 42 H ALT 64 H Alkaline Phosphatase 53 Total Protein 5.5 L Albumin 2.7 L C. trachomatis (JONNY) N. gonorrhoeae (JONNY) Active Medications Generic Name Dose Route Start Last Admin Trade Name Freq PRN Reason Stop Dose Admin Amlodipine Besylate 2.5 mg 09/10/18 10:00 09/11/18 10:17 Norvasc - PO 2.5 mg DAILY ANGELES Administration Benzocaine/Menthol 1 each 09/09/18 23:16 09/11/18 06:39 Cepacol Lozenge - MM 1 each Q6H PRN Administration SORE THROAT Cholecalciferol 2,000 unit 09/10/18 10:00 09/11/18 10:17 Vitamin D3 - PO 2,000 unit DAILY ANGELES Administration Docusate Sodium 100 mg 09/11/18 09:25 09/11/18 10:17 Colace - PO 100 mg BID PRN Administration CONSTIPATION Ferrous Sulfate 325 mg 09/10/18 10:00 09/11/18 10:17 Feosol - PO 325 mg DAILY ANGELES Administration Sodium Chloride 1,000 mls @ 125 mls/hr 09/10/18 23:59 09/10/18 23:51 Normal Saline - IV 125 mls/hr ASDIR ANGELES Administration Morphine Sulfate 2 mg 09/10/18 14:31 09/11/18 15:06 Morphine Sulfate IVPUSH 2 mg Q3H PRN Administration breakthrough pain Oxycodone HCl 5 mg 09/09/18 17:31 Roxicodone - PO Q4H PRN PAIN LEVEL 1-5 Oxycodone HCl 10 mg 09/09/18 17:31 09/11/18 11:22 Roxicodone - PO 10 mg Q4H PRN Administration PAIN LEVEL 6-10 Pantoprazole Sodium 20 mg 09/11/18 22:00 Protonix - PO BID [facility] ASSESSMENT/PLAN: The patient is a 42 yo f w/ PMH HTN, ovarian cysts, heavy vaginal bleeding who was admitted for laparoscopy, found to have hemoperitonium and continued to have anemia and abdominal pain post op. She is being transferred to medicine service for continued management of abdominal pain and anemia. #Abdominal pain possibly 2/2 gastric ulcer confounded by recent surgery -CTAP w/ PO contrast showed thickening of pylorus -GI onboard -s/p EGD today showing single nonbleeding ulcer and several hyperemic sections of gastric mucosa. -will f/u intraoperative biopsy results -avoid NSAIDS per GI -RPT general surgical eval: no intervention at this time -Pain control w/ percocet & morphine -Protonix 20mg BID per GI #Anemia possibly 2/2 recent heavy vaginal bleeding vs iron deficiency vs recent hemoperitonium discovered intraoperatively. -will recheck CBC in am -iron studies in AM -will consider IV venofer depending on iron studies -maintain normal tranfusion thresholds #FEN -NS @ 125 -lytes WNL -CLD tonight; advance to solids as tolerated under the guidance of GI #Prophy -holding AC while anemic #dispo -admit inpatient -possible DC tomorrow if patient remains stable Visit type - Emergency Visit Emergency Visit: Yes ED Registration Date: 09/09/18 Care time: The patient presented to the Emergency Department on the above date and was hospitalized for further evaluation of their emergent condition. - New Patient This patient is new to me today: Yes Date on this admission: 09/11/18 - Critical Care Critical Care patient: No - Discharge Referral Referred to [facility] Med P.C.: No
--- NOTE | 2018-09-11 18:20 | PN ---
Teaching Attending Note Name of Resident: Abiodun Jo ATTENDING PHYSICIAN STATEMENT I saw and evaluated the patient. I reviewed the resident's note and discussed the case with the resident. I agree with the resident's findings and plan as documented. SUBJECTIVE: 42yo F with PMH HTN and anemia on iron supplements presented to the ER on for epigastric pain, on imaging had concerns for R ovarian torsion and went to OR for laprascopic R ovarian cystectomy wiht evacuation of hemoperitoneum. there was an acute drop in Hgb and persistent epigastric pain and GI was consulted and underwent EGD which found a 5mm prepylotic ulcer with no signs of bleeding with some food residue in the stomach concerning for opiate anagelsia and post-op status. pt states seh continues to have epigastric pain, no BM since arrival to the ER. denies CP, SOB, fever, chills, N/V/D OBJECTIVE: Last Vital Signs Temp Pulse Resp BP Pulse Ox 99 F 82 20 124/66 99 09/11/18 17:23 09/11/18 17:23 09/11/18 17:23 09/11/18 17:23 09/11/18 15:38 General mild distress due to pain CV S1 S2 RRR no murmur/rub/gallop Abdomen +epigastric pain soft obese, surgical incision c/d/i ASSESSMENT AND PLAN: 42yo F with PMH HTN and anemia on iron supplements presented to the ER on for epigastric pain, on imaging had concerns for R ovarian torsion and went to OR for laprascopic R ovarian cystectomy with evacuation of hemoperitoneum and was transferred to medical service for anemia 1. Microcytic anemia- likely some acute blood loss from surgery but has remained stable and not requiring any blood products. was started on iron supplementation 1 month ago (once daily) which she seems to be tolerating. will repeat CBC in am with iron studies. consider giving venofer if iron studies are low. monitor bleeding 2. Epigastric pain- due to ulcer which was seen on EGD. bx taken to r/o Hpylori. to remain on a chopped diet with mashed potato consistency for 1 month and have repeat EGD at a later time. on protonix 20mg BID. avoid NSAIDS 3. s/p laprascopic R ovarian cystectomy with evacuation of hemoperitoneum- management per BUSINESS BANKING REPRESENTATIVE service. pain control 4. constipation- likely opiate induced. start miralax, increase colace. if does not have BM can consider relistor 5. HTN- controlled. cont medications 6. obesity- BMI 38. bariatric referral on discharge 7. anticipate d/c in next 24H if Hgb remains stable. spoke with present , all questions answered. verbalized understanding and agreement with plan
[2018-09-11] MEDS: POLYETHYLENE GLYCOL 3350 119 GM BTL PO SCH (19:05)
[2018-09-11] MEDS: PANTOPRAZOLE 20 MG TABLET (FP) PO SCH (21:21)
[2018-09-11] MEDS ORDERED: DOCUSATE SODIUM 100 MG CAPSULE (FP) PO SCH (22:00)
[2018-09-12] MEDS: SODIUM CHLORIDE 1,000 ML IV SCH (02:02)
[2018-09-12 07:21] LABS: HEMATOCRIT 29.6 % (32.4-45.2); HEMOGLOBIN 9.4 GM/dL (10.7-15.3); MCH 25.8 pg (25.7-33.7); MCHC 31.9 g/dl (32.0-36.0); MEAN CELL VOLUME 80.9 fl (80-96); MEAN PLT VOLUME 8.6 fl (7.5-11.1); PLATELET COUNT 230 K/MM3 (134-434); RBC 3.66 M/mm3 (3.60-5.2); RETICULOCYTES 1.76 % (0.5-1.5); WHITE BLOOD COUNT 4.7 K/mm3 (4.0-10.0)
[2018-09-12 08:01] LABS: ALBUMIN 2.7 g/dl (3.4-5.0); ALK PHOS 50 U/L (45-117); ANION GAP 7 MMOL/L (8-16); BILIRUBIN,TOTAL 0.2 mg/dL (0.2-1); BLOOD UREA NITROGEN 5 mg/dL (7-18); CALCIUM 7.9 mg/dL (8.5-10.1); CHLORIDE 107 mmol/L (98-107); CO2 25 mmol/L (21-32); CREATININE 0.5 mg/dL (0.55-1.3); GLUCOSE,RANDOM 91 mg/dL (74-106); POTASSIUM 3.8 mmol/L (3.5-5.1); SGOT/AST 36 U/L (15-37); SGPT/ALT 63 U/L (13-61); SODIUM 138 mmol/L (136-145); TOT PROT 5.7 g/dl (6.4-8.2)
--- NOTE | 2018-09-12 09:17 | DS ---
Physical Exam: SUBJECTIVE: Patient seen and examined. states pain has improved. vomited once last night after morphine being given. tolerated breakfast. denies CP, SOB, fevr , chills, or bleeding. no BM since arrival OBJECTIVE: Vital Signs Period Temp Pulse Resp BP Sys/Powell Pulse Ox Last 24 Hr 98 F-99 F 75-84 12- 111-149/52-87 96-100 PHYSICAL EXAM GENERAL: The patient is awake, alert, and fully oriented, in no acute distress. HEAD: Normal with no signs of trauma. EYES: PERRL, extraocular movements intact, sclera anicteric, conjunctiva clear. ENT: Ears normal, nares patent, oropharynx clear without exudates, moist mucous membranes. NECK: Trachea midline, full range of motion, supple. LUNGS: Breath sounds equal, clear to auscultation bilaterally, no wheezes, no crackles, no accessory muscle use. HEART: Regular rate and rhythm, S1, S2 without murmur, rub or gallop. ABDOMEN: Soft, mild tenderness in epigastrium and over surgical incisions which are c/d/i , nondistended, normoactive bowel sounds, obese EXTREMITIES: 2+ pulses, warm, well-perfused, no edema. NEUROLOGICAL: Cranial nerves II through XII grossly intact. Normal speech, gait not observed. PSYCH: Normal mood, normal affect. SKIN: Warm, dry, normal turgor, no rashes or lesions noted. LABS Laboratory Results - last 24 hr 09/11/18 09/11/18 09/12/18 06:00 13:30 07:00 WBC 5.8 4.7 RBC 3.59 L 3.66 Hgb 9.2 L 9.4 L Hct 29.1 L 29.6 L MCV 81.1 80.9 MCH 25.7 25.8 MCHC 31.7 L 31.9 L RDW 15.1 15.0 Plt Count 230 230 MPV 8.8 8.6 Retic Count 1.76 H Sodium Potassium Chloride Carbon Dioxide Anion Gap BUN Creatinine Creat Clearance w eGFR Random Glucose Calcium Ferritin Total Bilirubin AST ALT Alkaline Phosphatase Total Protein Albumin Hep C Ab Diagnostic <0.1 09/12/18 07:00 WBC RBC Hgb Hct MCV MCH MCHC RDW Plt Count MPV Retic Count Sodium 138 Potassium 3.8 Chloride 107 Carbon Dioxide 25 Anion Gap 7 L BUN 5 L Creatinine 0.5 L Creat Clearance w eGFR 135.30 Random Glucose 91 Calcium 7.9 L Ferritin 11.1 Total Bilirubin 0.2 AST 36 ALT 63 H Alkaline Phosphatase 50 Total Protein 5.7 L Albumin 2.7 L Hep C Ab Diagnostic HOSPITAL COURSE: Date of Admission:09/09/18 Date of Discharge: 09/12/18 ADmitting diagnosis: Pyloric ulcer, iron def anemia, R ovarian cyst Procedures 09/09/18 laprascopic R ovarian cystectomy wiht evacuation of hemoperitoneum Pre hospital course 42yo F with PMH HTN and anemia on iron supplements presented to the ER on for epigastric pain, on imaging had concerns for R ovarian torsion and went to OR for laprascopic R ovarian cystectomy wiht evacuation of hemoperitoneum. there was an acute drop in Hgb and persistent epigastric pain and GI was consulted and underwent EGD which found a 5mm prepylotic ulcer with no signs of bleeding with some food residue in the stomach concerning for opiate anagelsia and post-op status. pt states seh continues to have epigastric pain, no BM since arrival to the ER. denies CP, SOB, fever, chills, N/V/D Subsequent hospital course Initially admitted to [facility] service and taken to OR for suspected ovarian torsion which was ovarian cyst which was removed and hemopertioenum was evacuated. GI consulted due to anemia and EGD performed showing ulcer. was transferred to medical service for continued care. Hgb remained stable not requiring transfusion. Venofer x1 was given. started on protonix BID. counselled in detail need for dietary changes, medications and follow up. Minutes to complete discharge: 40 Discharge Summary Reason For Visit: CYST OF OVARY Current Active Problems Abdominal pain (Acute) Iron deficiency anemia (Acute) Ovarian cyst (Acute) Pelvic pain (Acute) Peptic ulcer (Acute) Transaminitis (Acute) HTN (hypertension) (Chronic) Obesity (BMI 30-39.9) (Chronic) Condition: Fair - Instructions Diet, Activity, Other Instructions: You were found to have an ulcer in your stomach. You have been started on medications to reduce the acid in your stomach so this can heal. You should take it twice a day until you follow up with the GI doctor, his information has been provided, He will need to repeat the upper endoscopy in a few months to ensure that it has healed. He also took biopsies to rule out infection. FOllow up with him to determine if you require treatment for this. Resume a diet where your food is chopped up and almost a mashed potato consistency. This will allow your ulcer to heal. do this for the next month You were also given IV iron while you were hospitalized due to your low iron studies. Discuss with your primary care doctor about receiving more doses if necessary Monitor for bowel movements, you should be having 1 regular movement per day where you are not required to strain. It is important that you are regular while you are on medications that can cause constipation (iron supplements and pain medications) AVOID taking NSAIDS (for example Ibuprofen, Motrin, Advil etc.) and like products as this can cause bleeding from your ulcer as well as prevent healing Follow up with your primary care doctor in 1 week and GI specialist in [address] Eliza Fisher [employer] Operator discharge instructions Physical activity Resume your normal everyday activity as tolerated no heavy lifting or exercise until seen by your surgeon. You may walk unlimited shiloh of and climb stairs. You may resume driving the car when you feel safe and comfortable behind the wheel. No sexual activity as instructed by Dr. Fisher. Wound care If you have a bandage, leave it on, and keep dry for 48-72 hours. After that time discard the outer bandage. If they are tapes on the skin under the out of bandage leave them in place. They will peel off in the next 7 to 10 days. Do Not Peel them off. You may shower the day after surgery. If there are tapes present on the skin, you may shower over them. Pain management You may take Tylenol or acetaminophen from my pain prescription medication is ordered should be taken as prescribed for moderate to severe pain. Call Dr. Fisher for any of the following: Severe pain not relieved by medication Fever of 101 or higher Excessive bleeding or drainage on dressing Inability to urinate Call the office for an appointment in seven days. Referrals: Baltazar Monte DO [Staff Physician] - 1 Week Marquita Abdul MD [Primary Care Provider] - - Home Medications Comprehensive Discharge Medication List: Ambulatory Orders Cholecalciferol (Vitamin D3) [Vitamin D3] 2,000 unit PO DAILY 07/31/16 Amlodipine Besylate 2.5 mg PO DAILY 09/01/18 Iron 1 tab PO DAILY 09/01/18 Acetaminophen W/ Codeine #3 [Tylenol # 3 -] 1 tab PO Q4H PRN #20 tablet MDD 6 Docusate Sodium [Colace -] 300 mg PO HS #30 capsule 09/12/18 Pantoprazole Sodium [Protonix -] 20 mg PO BID #60 tablet.ec 09/12/18 This patient is new to me today: No Emergency Visit: Yes ED Registration Date: 09/09/18 Care time: The patient presented to the Emergency Department on the above date and was hospitalized for further evaluation of their emergent condition. Critical Care patient: No - Discharge Referral Referred to [facility] Med P.C.: No
[2018-09-12] MEDS ORDERED: IRON SUCROSE INJECTION 200 MG in SODIUM CHLORIDE 90 ML IVPB ONE (10:00)
[2018-09-12] MEDS: POLYETHYLENE GLYCOL 3350 119 GM BTL PO SCH (10:07)
[2018-09-12] MEDS: CHOLECALCIFEROL (VITAMIN D3) 1,000 UNIT TABLET (FP) PO SCH (10:07)
[2018-09-12] MEDS: FERROUS SO4 325 MG TABLET (FP) PO SCH (10:07)
[2018-09-12] MEDS: PANTOPRAZOLE 20 MG TABLET (FP) PO SCH (10:07)
[2018-09-12] MEDS: amLODIPine BESYLATE 2.5 MG TABLET (FP) PO SCH (10:07)
--- NOTE | 2018-09-12 13:40 | PN.GI ---
GI Progress Note Subjective: No acute events Upper abdominal pain improving No vomiting Of the full liquid diet, only ate ice cream - Objective Vital Signs: Vital Signs Temperature 98 F 09/12/18 06:33 Pulse Rate 76 09/12/18 06:33 Respiratory Rate 20 09/12/18 06:33 Blood Pressure 128/69 09/12/18 06:33 O2 Sat by Pulse Oximetry (%) 96 09/12/18 09:00 Constitutional: Calm Eyes: No: Sclera Icterus Cardiovascular: Yes: Regular Rate and Rhythm Respiratory: Yes: CTA Bilaterally Gastrointestinal Inspection: No: Distention, Scars ...Auscultate: Yes: Normoactive Bowel Sounds ...Palpate: Yes: Tenderness (improved TTP upper abdomen) ...Percussion: No: Tympanitic Edema: No (No LE edema) Neurological: Yes: Alert Labs: CBC, BMP 09/12/18 07:00 09/12/18 07:00 INR, PTT INR 1.02 (0.83-1.09) 09/09/18 12:35 Hepatic Panel Total Bilirubin 0.2 mg/dL (0.2-1) 09/12/18 07:00 Direct Bilirubin 0.1 mg/dL (0.0-0.2) 09/11/18 06:00 AST 36 U/L (15-37) 09/12/18 07:00 ALT 63 U/L (13-61) H 09/12/18 07:00 Alkaline Phosphatase 50 U/L (45-117) 09/12/18 07:00 Albumin 2.7 g/dl (3.4-5.0) L 09/12/18 07:00 Laboratory Tests 09/11/18 06:00 Hepatitis A Ab Total Pending Hep Bs Antigen Pending Hep Bs Antibody Pending Hep B Core Total Ab Pending Hep C Ab Diagnostic <0.1 Problem List - Problems (1) Abdominal pain Assessment/Plan: Improving Encouraged PO intake: advanced to pureed diet Protonix 20mg PO BID given finding of prepyloric antral ulcer Await pathology results Code(s): R10.9 - UNSPECIFIED ABDOMINAL PAIN Qualifiers: Abdominal location: generalized Qualified Code(s): R10.84 - Generalized abdominal pain (2) Transaminitis Assessment/Plan: Improving HCV Ab negative Hep B serologies pending Code(s): R74.0 - NONSPEC ELEV OF LEVELS OF TRANSAMNS & LACTIC ACID DEHYDRGNSE
[2018-09-12 14:09] LABS: HBSAG SCREEN Negative (Negative); HEP A AB, IGM Negative (Negative); HEP B CORE AB, TOT Negative (Negative)
[2018-09-12 16:29] VITALS: TEMP 98.2
[2018-09-12 17:19] VITALS: BP 111/68; PULSE 87
[2018-09-13 04:10] LABS: SERUM IRON SATURATION 9 % (15-55); TOTAL IRON BINDING CAPACITY 345 ug/dL (250-450); UIBC 315 ug/dL (131-425)
--- NOTE | 2018-09-15 16:20 | PATH ---
Surgical Pathology Report Patient Name: LINA JUAREZ Med. Rec. #: [id number] /Age/Gender: 1975 (Age: 42) / F Account: [id number] Location: [facility] MED/SURG Taken: 09/11/2018 Received: 09/14/2018 Reported: 09/15/2018 Physicians: Emmanuel Angeles M.D. Specimen(s) Received A: DUODENUM B: PREPYLORIC ULCER C: BODY D: PLAQUE IN PROXIMAL BODY Clinical History Abdominal pain, abnormal CAT scan Postoperative diagnosis: Prepyloric ulcer, gastritis Final Diagnosis A. DUODENUM, BIOPSY: DUODENUM MUCOSA WITH NO DIAGNOSTIC ABNORMALITIES. NO DEFINITIVE HISTOLOGIC EVIDENCE OF CELIAC DISEASE. B. PREPYLORIC ULCER, BIOPSY: GASTRIC MUCOSA WITH ACTIVE CHRONIC GASTRITIS. IMMUNOSTAIN FOR H. PYLORI IS POSITIVE. POSITIVE FOR INTESTINAL METAPLASIA. C. ANGULARIS AND BODY, BIOPSY: GASTRIC MUCOSA WITH ACTIVE CHRONIC GASTRITIS. IMMUNOSTAIN FOR H. PYLORI IS POSITIVE. NEGATIVE FOR INTESTINAL METAPLASIA. D. PLAQUE IN PROXIMAL BODY, BIOPSY: GASTRIC MUCOSA WITH MILD ACTIVE CHRONIC GASTRITIS AND REACTIVE LYMPHOID AGGREGATES. IMMUNOSTAIN FOR H. PYLORI IS NEGATIVE. NEGATIVE FOR INTESTINAL METAPLASIA. Electronically Signed Juliette Michaud M.D. Gross Description A. Received in formalin, labeled "biopsy duodenum" are 2 walters, irregular portions of soft tissue measuring 0.2 and 0.5 cm. in greatest dimension. The specimens are submitted in toto in one cassette. B. Received in formalin, labeled "biopsy prepyloric ulcer" are 5 walters, irregular portions of soft tissue ranging from 0.2-0.3 cm. in greatest dimension. The specimens are submitted in toto in one cassette. C. Received in formalin, labeled "biopsy angularis and body" are 4 walters, irregular portions of soft tissue ranging from 0.2-0.4 cm. in greatest dimension. The specimens are submitted in toto in one cassette. D. Received in formalin, labeled "biopsy plaque in proximal body" are 5 walters, irregular portions of soft tissue ranging from 0.1-0.5 cm. in greatest dimension. The specimens are submitted in toto in one cassette. /09/14/2018 saudi/09/14/2018
== END 2018-09-12 18:54 | disposition home or self-care (01) | DRG 513 ==
LOC: JER 01:16 → JASUSAT 12:35 → J8W 20:03 → JASUSAT 20:04
PROVIDERS: ADMIT Internal Medicine; ATTEND Internal Medicine
PROC: 0D9W4ZZ Drainage of Peritoneum, Percutaneous Endoscopic Approach (ICD-10-PCS; 2018-09-09)
PROC: 0UB04ZZ Excision of Right Ovary, Percutaneous Endoscopic Approach (ICD-10-PCS; principal; 2018-09-09 12:30)
PROC: 0DB68ZX Excision of Stomach, Via Natural or Artificial Opening Endoscopic, Diagnostic (ICD-10-PCS; 2018-09-11)
PROC: 0DB98ZX Excision of Duodenum, Via Natural or Artificial Opening Endoscopic, Diagnostic (ICD-10-PCS; 2018-09-11)
DX: N83.201 Unspecified ovarian cyst, right side (principal); R74.0 Nonspecific elevation of levels of transaminase and lactic acid dehydrogenase [LDH]; D50.9 Iron deficiency anemia, unspecified; I10 Essential (primary) hypertension; E66.9 Obesity, unspecified; Z68.38 Body mass index [BMI] 38.0-38.9, adult; K25.9 Gastric ulcer, unspecified as acute or chronic, without hemorrhage or perforation; R10.2 Pelvic and perineal pain; K66.1 Hemoperitoneum; K59.00 Constipation, unspecified; K76.0 Fatty (change of) liver, not elsewhere classified; D62 Acute posthemorrhagic anemia; R10.9 Unspecified abdominal pain
CPT/HCPCS: 36415; 74176-TC; 74177-TC; 76705-TC; 76817-TC; 80048; 80053; 80076; 81003; 82150; 82728; 83540; 83550; 83690; 84484; 84703; 85025; 85027; 85044; 85610; 86704; 86706; 86708; 86803; 86850; 86900; 86901; 87086; 87340; 87491; 87591; 88108; 88304-TC; 88305-TC; 93005; 93010; 94010; 94760; 99284-25; J0131; J1756; J7030

== ENCOUNTER 2018-09-16 18:00 | Inpatient (IN) | payer OTHER ==
[2018-09-16 18:07] VITALS: BMI 32.9
[2018-09-16] MEDS ORDERED: morphine CARPU-JECT 2 MG/1 ML DISP.SYRIN IVPUSH ONE (18:08)
[2018-09-16] MEDS ORDERED: PANTOPRAZOLE SODIUM 40 MG in SODIUM CHLORIDE 100 ML IVPB ONE (18:08)
--- NOTE | 2018-09-16 18:08 | PDOC ---
Rapid Medical Evaluation Medical Evaluation: Allergies Allergy/AdvReac Type Severity Reaction Status Date / Time Sulfa (Sulfonamide Allergy Severe Rash Verified 09/09/18 02:34 Antibiotics) hydromorphone [From Dilaudid] AdvReac Intermediate Itching Verified 09/09/18 07: 06 09/16/18 18:04 Pt c/o: left upper quadrant pain since yesterday, vomiting liquid, no diarrhea, states felt feverish yersterday, took tylenol 1/2 hr. Pending GI consult / endoscopy Pt on brief exam: left upper pain Pt ordered for: labs, urine, ekg, iv, protonix, mso4 Pt to proceed to the ED Discharge Disposition - Diagnosis Left upper quadrant abdominal pain of unknown etiology - Referrals - Patient Instructions - Post Discharge Activity
[2018-09-16] MEDS ORDERED: SODIUM CHLORIDE 1,000 ML IV STA (18:09)
[2018-09-16 18:46] LABS: BASO % 0.8 % (0-2.0); EOS % 1.2 % (0-4.5); HEMATOCRIT 33.6 % (32.4-45.2); HEMOGLOBIN 10.9 GM/dL (10.7-15.3); LYMPH % 21.6 % (8-40); MCH 26.4 pg (25.7-33.7); MCHC 32.4 g/dl (32.0-36.0); MEAN CELL VOLUME 81.5 fl (80-96); MEAN PLT VOLUME 8.9 fl (7.5-11.1); MONO % 6.2 % (3.8-10.2); NEUT % 70.2 % (42.8-82.8); PLATELET COUNT 292 K/MM3 (134-434); RBC 4.12 M/mm3 (3.60-5.2); RDW 15.5 % (11.6-15.6)
[2018-09-16 19:00] LABS: URINE APPEARANCE CLEAR; URINE BILIRUBIN NEGATIVE (NEGATIVE); URINE COLOR YELLOW; URINE GLUCOSE (UA) NEGATIVE (NEGATIVE); URINE KETONE NEGATIVE (NEGATIVE); URINE LEUK ESTERASE NEGATIVE (NEGATIVE); URINE NITRITE NEGATIVE (NEGATIVE); URINE PROTEIN NEGATIVE (NEGATIVE); URINE UROBILINOGEN 0.2 mg/dL (0.2-1.0)
[2018-09-16] MEDS ORDERED: MORPHINE SULFATE 2 MG/ML VIAL ONE (19:06)
[2018-09-16 19:28] LABS: ALBUMIN 3.6 g/dl (3.4-5.0); ALK PHOS 74 U/L (45-117); ANION GAP 8 MMOL/L (8-16); BILIRUBIN,TOTAL 0.5 mg/dL (0.2-1); BLOOD UREA NITROGEN 5 mg/dL (7-18); CALCIUM 8.5 mg/dL (8.5-10.1); CHLORIDE 102 mmol/L (98-107); CO2 25 mmol/L (21-32); CREATININE 0.6 mg/dL (0.55-1.3); GLUCOSE,RANDOM 107 mg/dL (74-106); LIPASE 269 U/L (73-393); MAGNESIUM 1.9 mg/dL (1.8-2.4); POTASSIUM 4.9 mmol/L (3.5-5.1); SGOT/AST 72 U/L (15-37); SGPT/ALT 85 U/L (13-61); SODIUM 135 mmol/L (136-145); TOT PROT 7.4 g/dl (6.4-8.2)
[2018-09-16] MEDS ORDERED: morphine CARPU-JECT 4 MG/1 ML DISP.SYRIN IVPUSH ONE (19:31)
--- NOTE | 2018-09-16 19:46 | PDOC ---
History of Present Illness - General Chief Complaint: Pain, Acute Stated Complaint: LFT SHOULDER PAIN Time Seen by Provider: 09/16/18 18:54 History Source: Patient Exam Limitations: No Limitations - History of Present Illness Initial Comments: 09/16/18 21:14 Pt is a 42yo F with PMH of HTN, Anemia s/p laprascopic R ovarian cystectomy with hemoperitoneum evacuation (09/09/18), Prepyloric Ulcer presenting to ED with complaints of LUQ abdominal pain with nausea and nbnb vomiting. Pain started yesterday, is sharp, radiates to epigastrum and to the chest. Pt states that she has been taking Tylenol for pain but it is not helping as much. She has been mainly consuming liquids but she could not tolerate liquids today. Last BM was 2 days ago. Endorses SOB and dysuria. She denies fever, chills, back pain, hematuria, bloody stools. PMD: Polyakova PMH: see hpi PSH: see hpi Meds: see med rec Allergies: sulfa, ibuprofen Past History - Past Medical History Allergies/Adverse Reactions: Allergies Allergy/AdvReac Type Severity Reaction Status Date / Time Sulfa (Sulfonamide Allergy Severe Rash Verified 09/16/18 21:21 Antibiotics) ibuprofen Allergy Verified 09/16/18 18:07 hydromorphone [From Dilaudid] AdvReac Intermediate Itching Verified 09/09/18 07: 06 Home Medications: Ambulatory Orders Cholecalciferol (Vitamin D3) [Vitamin D3] 2,000 unit PO DAILY 07/31/16 Amlodipine Besylate 2.5 mg PO DAILY 09/01/18 Iron 1 tab PO DAILY 09/01/18 Acetaminophen W/ Codeine #3 [Tylenol # 3 -] 1 tab PO Q4H PRN #20 tablet MDD 6 Pantoprazole Sodium [Protonix -] 20 mg PO BID #60 tablet.ec 09/12/18 Docusate Sodium [Colace -] 300 mg PO BID 09/16/18 Anemia: Yes (HODGKIN DISEASE) Asthma: No Cancer: Yes (HODGKINS: 2002) Cardiac Disorders: No CVA: No COPD: No CHF: No Dementia: No Diabetes: No GI Disorders: No Disorders: No HTN: Yes Hypercholesterolemia: Yes Liver Disease: No Seizures: No Thyroid Disease: No - Surgical History Abdominal Surgery: Yes Appendectomy: No Cardiac Surgery: No Cholecystectomy: No Lung Surgery: No Neurologic Surgery: No Orthopedic Surgery: Yes (CTR RIGHT) - Immunization History Td Vaccination: Yes TDAP Vaccination: Yes Immunization Up to Date: Yes - Suicide/Smoking/Psychosocial Hx Smoking Status: Yes (PORTUGUESE TOBACCO) Smoking History: Never smoked Have you smoked in the past 12 months: No Number of Cigarettes Smoked Daily: 0 Information on smoking cessation initiated: No Hx Alcohol Use: No Drug/Substance Use Hx: No Substance Use Type: None Hx Substance Use Treatment: No Review of Systems - Review of Systems Constitutional: No: Chills, Diaphoresis, Fever, Weakness HEENTM: No: Symptoms Reported Respiratory: Yes: Shortness of Breath. No: Cough, Wheezing Cardiac (ROS): Yes: See HPI, Chest Pain, Lightheadedness. No: Palpitations, Syncope ABD/GI: Yes: Constipated, Nausea, Vomiting, Abdominal cramping. No: Diarrhea, Rectal Bleeding, Tarry Stools : Yes: Dysuria. No: Hematuria Musculoskeletal: No: Back Pain, Muscle Pain, Neck Pain Integumentary: No: Symptoms Reported Neurological: No: Headache, Numbness, Tingling, Tremors *Physical Exam - Vital Signs Last Vital Signs Temp Pulse Resp BP Pulse Ox 99.2 F 105 H 18 163/96 100 09/16/18 18:04 09/16/18 18:04 09/16/18 18:04 09/16/18 18:04 09/16/18 18:04 - Physical Exam General Appearance: Yes: Appropriately Dressed, Moderate Distress, Obese HEENT: positive: EOMI, RICHY, Normal ENT Inspection Neck: positive: Trachea midline, Supple. negative: Lymphadenopathy (R), Lymphadenopathy (L) Respiratory/Chest: positive: Lungs Clear, Normal Breath Sounds. negative: Crackles, Wheezing Cardiovascular: positive: Regular Rate, S1, S2. negative: Edema, JVD, Murmur Vascular Pulses: Carotid (R): 2+, Carotid (L): 2+, Dorsalis-Pedis (R): 2+, Doralis-Pedis (L): 2+ Gastrointestinal/Abdominal: positive: Normal Bowel Sounds, Soft, Rebound, Tenderness (LUQ, epigastric). negative: Distended, Guarding, Hernia, Mass Musculoskeletal: negative: CVA Tenderness Extremity: positive: Normal Capillary Refill. negative: Pedal Edema, Swelling, Calf Tenderness Integumentary: positive: Normal Color, Dry, Warm Neurologic: positive: crate opener II-XII NML intact, Fully Oriented, Alert, Normal Mood/ Affect, Normal Response, Motor Strength 10/11 ED Treatment Course - LABORATORY CBC & Chemistry Diagram: 09/16/18 18:30 09/16/18 18:30 - ADDITIONAL ORDERS Additional order review: Laboratory Results 09/16/18 04 18:30 18:30 Sodium 135 L Potassium 4.9 Chloride 102 Carbon Dioxide 25 Anion Gap 8 BUN 5 L Creatinine 0.6 Creat Clearance w eGFR 109.63 Random Glucose 107 H Calcium 8.5 Magnesium 1.9 Total Bilirubin 0.5 AST 72 H ALT 85 H Alkaline Phosphatase 74 Creatine Kinase 95 Troponin I < 0.02 Total Protein 7.4 Albumin 3.6 Lipase 269 Urine HCG, Qual Negative 09/16/18 18:30 RBC 4.12 MCV 81.5 MCHC 32.4 RDW 15.5 MPV 8.9 Neutrophils % 70.2 D Lymphocytes % 21.6 D Monocytes % 6.2 Eosinophils % 1.2 Basophils % 0.8 Medical Decision Making - Medical Decision Making 09/16/18 21:19 Pt is a 42yo F with PMH of HTN, Anemia s/p laprascopic R ovarian cystectomy with hemoperitoneum evacuation (09/09/18), Prepyloric Ulcer presenting to ED with complaints of LUQ abdominal pain with nausea and nbnb vomiting. Pain started yesterday, is sharp, radiates to epigastrum and to the chest. Pt states that she has been taking Tylenol for pain but it is not helping as much. She has been mainly consuming liquids but she could not tolerate liquids today. Last BM was 2 days ago. Endorses SOB. She denies fever, chills, back pain, urinary symptoms, hematuria, bloody stools. Vitals: tachycardia, afebrile (99.5 rectal) PE: diffuse abdominal tenderness, greatest in LUQ, +rebound, normal bowel sounds. lungs CTA. normal cap refill Ddx includes but not limited to SBO, perforation, ileus, pancreatitis, cholecystitis, colitis, ischemia, constipation, pyelo, kidney stones, pe -labs ordered by RME. Added lactate -EKG, CXR by RME. Added CTAP -fluids, 2 morphine, protonix by RME. Added Zofran, 4 morphine. No white count, slightly elevated AST/ALT. UA negative for infection. lactate pending. Pt still uncomfortable after CT. 1mg Dilaudid. lactic 0.8 CXR: no acute pathology EKG: nsr CT: no SBO, normal liver, pancreas, gallbladder. R ovarian cyst. No pneumoperitoneum, no ff. -consulting Dr. Fisher, waiting for call back. Pt having intractable abdominal pain. Will admit. Will give Miralax and viscous lidocaine *DC/Admit/Observation/Transfer Diagnosis at time of Disposition: Left upper quadrant abdominal pain of unknown etiology, Fatty liver Constipation Qualifiers: Constipation type: unspecified constipation type Qualified Code(s): K59.00 - Constipation, unspecified Ovarian cyst Qualifiers: Laterality: right Qualified Code(s): N83.201 - Unspecified ovarian cyst, right side - Discharge Dispostion Condition at time of disposition: Stable - Referrals - Patient Instructions - Post Discharge Activity
[2018-09-16] MEDS ORDERED: PANTOPRAZOLE SODIUM 40 MG/100 ML BAG IVPB ONE (19:48)
[2018-09-16] MEDS ORDERED: morphine SULFATE 4 MG/ML VIAL ONE (19:48)
[2018-09-16] MEDS ORDERED: ONDANSETRON 4 MG/2 ML VIAL IVPB ONE (20:10)
[2018-09-16] MEDS ORDERED: ONDANSETRON 4 MG/2 ML VIAL ONE (20:28)
[2018-09-16] MEDS ORDERED: HYDROmorphone HCL CARPU-JECT 2 MG/1 ML DISP.SYRIN IVPUSH ONE (21:09)
[2018-09-16] MEDS ORDERED: HYDROmorphone HCl 2 MG/ML VIAL ONE (21:14)
[2018-09-16] MEDS ORDERED: POLYETHYLENE GLYCOL 3350 119 GM BTL PO ONE (22:02)
[2018-09-16] MEDS ORDERED: LIDOCAINE VISCOUS 2% ORAL/TOP 20 ML UNIT-DOSE CUP MM ONE (22:02)
--- NOTE | 2018-09-16 22:02 | PDOC ---
Attending Attestation - Resident Resident Name: Blanca Chester - ED Attending Attestation I have performed the following: I have examined & evaluated the patient, The case was reviewed & discussed with the resident, I agree w/resident's findings & plan, Exceptions are as noted - HPI HPI: 09/16/18 21:57 42 yo F s/p laprasopic ovarian cystectomy on right for suspected torsion, and hemoperitoneum 4/3, found to have a peptic ulcer on egd post operatively. here today c/o epigastric and left upper quadrant pain since yesterday. states has had n/v x 3. hasn't been abl to tolerate liquids since yesterday. last BM was friday, 2 days ago. no f/c does have dysuria , no f/c. no back pain. no mod factors. pain severe. - Physicial Exam PE: 09/16/18 21:59 awake alert tearful . lungs clear bilaterally heart rrr no mrg abd soft epigastric luq ttp. no rebound no guarding. incisions clean dry intact. ext wwp no edema no rash. nuero alert oriented moves all ext. - Medical Decision Making 09/16/18 22:00 42 yo post op 1 week for laprospic ov cystectomy hemoperitoneum, egd with gastric ulcer no active bleeding here with abd pain , epigastric ttp. differnetial peptic ulcer disease. pancreatitis. abscess or infection, sbo, uti , constipation, . plan ct a/p labs ua . pt ct with fatty liver, persistant ovarian cyst no sbo. otherwise unremarkable. will likely require admission for intractable. pain and vomiting. post op. given protonix. miralax, viscous lidocaine. will contact dr gonzalez 09/16/18 23:55 d/w rocky zuniga see pt in hospital.
--- NOTE | 2018-09-16 23:04 | PN ---
Teaching Attending Note Name of Resident: Nicko Lay ATTENDING PHYSICIAN STATEMENT I saw and evaluated the patient. I reviewed the resident's note and discussed the case with the resident. I agree with the resident's findings and plan as documented. SUBJECTIVE: Patient is a 42 year old woman with PMH of HTN, Anemia s/p laprascopic right ovarian cystectomy with hemoperitoneum evacuation (09/09/18), Hodgkins disease, Danish tobacco use, and Prepyloric Ulcer presenting to the ER with complaints of LUQ abdominal pain with nausea and vomiting. Pain started yesterday, is sharp , radiates to epigastrum and to the chest. She has been taking Tylenol for pain but it is not helping. She has been mainly consuming liquids but she could not tolerate liquids today. Last bowel movement was 2 days ago. Has SOB and dysuria. Has irregular menses with continuous bleeding from June to August 2018. She denies fever, chills, back pain, hematuria, headache or bloody stools. OBJECTIVE: Alert Vital Signs Period Temp Pulse Resp BP Sys/Powell Pulse Ox Last 24 Hr 99.2 F 89-105 18-22 132-163/67-96 97-100 HEENT: No Jaundice, eye redness or discharge, PERRLA, EOMI. Normocephalic, atraumatic. External ears are normal and hearing is grossly intact. No nasal discharge. Neck: Supple, nontender. No palpable adenopathy or thyromegaly. No JVD Chest: Good effort. Clear to auscultation and percussion. Heart: Regular. No S3, rub or murmur Abdomen: Not distended, soft; LUQ and epigastric tenderness; no HSM. No rebound or guarding. Normal bowel sounds. Ext: Peripheral pulses intact. No leg edema. Skin: Warm and dry. No petechiae, rash or ecchymosis. Neuro: Alert. Oriented x3. CN 2-12 grossly intact. Sensation grossly intact in all four extremities and DTR are symmetric. Psych: Appropriate mood and affect. Good insight. Home Medications Medication Instructions Recorded Cholecalciferol (Vitamin D3) 2,000 unit PO DAILY 07/31/16 [Vitamin D3] Amlodipine Besylate 2.5 mg PO DAILY 09/01/18 Iron 1 tab PO DAILY 09/01/18 Acetaminophen W/ Codeine #3 1 tab PO Q4H PRN #20 tablet MDD 6 09/09/18 [Tylenol # 3 -] Pantoprazole Sodium [Protonix -] 20 mg PO BID #60 tablet.ec 09/12/18 Docusate Sodium [Colace -] 300 mg PO BID 09/16/18 Abnormal Lab Results 09/16/18 09/16/18 18:30 18:30 Sodium 135 L BUN 5 L Random Glucose 107 H AST 72 H ALT 85 H Ur Specific [place] 1.006 L Current Medications Generic Name Dose Route Start Last Admin Trade Name Robq PRN Reason Stop Dose Admin Amlodipine Besylate 2.5 mg 09/17/18 10:00 Norvasc - PO DAILY ANGELES Morphine Sulfate 2 mg 09/17/18 00:18 Morphine Sulfate IVPUSH Q6H PRN PAIN LEVEL 7 - 10 Ondansetron HCl 4 mg 09/17/18 00:17 Zofran Injection IVPUSH Q8H PRN NAUSEA Pantoprazole Sodium 40 mg 09/17/18 00:30 09/17/18 00:37 Protonix Iv IVPUSH 40 mg BID [facility] Administration ASSESSMENT AND PLAN: 1. Abdominal pain - Her GI symptoms, especially the vomiting and nausea appeared to escalate after starting the triple therapy for PUD - suggesting an adverse effect from the combination. May also still be having pain from PUD/ gastritis. CT abd/pelvis with IV and PO contrast just shows hepatomegaly, hepatic steatosis and possible sacroiliitis. No acute pathology on CXR. EKG is NSR with no acute ST-T wave changes. Will give IV LR at 75 ml/hour, protonix 40 mg IV q 12 hours, Zofran 4 mg IV q 4 hours PRN, morphine 2 mg IV q 6 hours PRN for severe pain and trend LFTs. Consult GI. 2. Obesity Counseled on the risks associated with obesity. Will provide patient all the necessary assistance, counseling and positive reinforcement to facilitate weight loss. Consult air control electronics operator. 3. Hypertension - Restart outpatient antihypertensive drugs and revise regimen to ensure smooth [id number] good BP control. Nonpharmacologic measures to control hypertension like weight loss, salt restriction and exercise discussed. 4. DVT prophylaxis - Lovenox 40 mg SQ q 24 hours. 5. Advance directives - Full code
[2018-09-16] MEDS ORDERED: LIDOCAINE VISCOUS 2% ORAL/TOP 20 ML UNIT-DOSE CUP ONE (23:06)
--- NOTE | 2018-09-17 00:14 | HP ---
CHIEF COMPLAINT: Severe Left Upper Quadrant Abdominal pain HISTORY OF PRESENT ILLNESS: Pt is a 42 y/o lady with a significant past medical history of HTN, Upper GI Ulcer, and HLD who presented to [facility] yesterday evening c/o severe left upper quadrant pain. Pt is s/p ovarian cystectomy (09/09/18). Pt's pain, located in LUQ , is described as constant, sharp in nature, and 10/10 in pain severity. Pain radiates to her lower back and has been present for 5 days. Pt endorsed she took Tylenol at home which did not assuage her pain. Pt underwent an EGD on which was positive for a prepyloric antral ulcer. Biopsy was performed at that time which was also positive for H. Pylori. Pt was subsequently started on triple therapy with Clarithromycin 500, amoxicillin 500, and omeprazole 20 BID. Pt endorses that she took the medication Friday twice, Friday twice, and once yesterday (09/16). Furthermore, pt states she has been vomiting twice daily since her pain commenced and has been unable to hold down any solid foods. Pt endorses chills, nausea/vomiting, dysuria, and pain with defecation. Pt also endorses irregular menses commencing from late June to late August. PSurg Hx: 3 C-Sections, Lap ovarian Cystectomy, Hysteroscopic myomectomy (for endometrial polyps) Social HX- Denies Tobacco, Alcohol, or illicit drug use FH- Mother-HTN ER course was notable for: (1) AST/ALT 72/85 respectively (2) CTAP---> Hepatomegaly and hepatic steatosis (3) received Morphine and Dilaudid in ED Allergies: Sulfa (Sulfonamide Antibiotics) Allergy (Severe, Verified 09/16/18 21:21) Rash DIFFICULTY BREATHING,ITCHING ibuprofen Allergy (Verified 09/16/18 18:07) hydromorphone [From Dilaudid] Adverse Reaction (Intermediate, Verified 09/09/18 07:06) Itching HOME MEDICATIONS: Home Medications Medication Instructions Recorded Cholecalciferol (Vitamin D3) 2,000 unit PO DAILY 07/31/16 [Vitamin D3] Amlodipine Besylate 2.5 mg PO DAILY 09/01/18 Iron 1 tab PO DAILY 09/01/18 Acetaminophen W/ Codeine #3 1 tab PO Q4H PRN #20 tablet MDD 6 09/09/18 [Tylenol # 3 -] Pantoprazole Sodium [Protonix -] 20 mg PO BID #60 tablet.ec 09/12/18 Docusate Sodium [Colace -] 300 mg PO BID 09/16/18 REVIEW OF SYSTEMS CONSTITUTIONAL: PRESENT: chills HEENT: Absent: rhinorrhea, nasal congestion, throat pain, throat swelling, difficulty swallowing, mouth swelling, ear pain, eye pain, visual changes CARDIOVASCULAR: Absent: chest pain, syncope, palpitations, irregular heart rate, lightheadedness , peripheral edema RESPIRATORY: Absent: cough, shortness of breath, dyspnea with exertion, orthopnea, wheezing, stridor, hemoptysis GASTROINTESTINAL: PRESENT abdominal pain, nausea, vomiting GENITOURINARY: PRESENT: dysuria MUSCULOSKELETAL: Absent: myalgia, arthralgia, joint swelling, back pain, neck pain SKIN: Absent: rash, itching, pallor HEMATOLOGIC/IMMUNOLOGIC: Absent: easy bleeding, easy bruising, lymphadenopathy, frequent infections ENDOCRINE: Absent: unexplained weight gain, unexplained weight loss, heat intolerance, cold intolerance NEUROLOGIC: Absent: headache, focal weakness or paresthesias, dizziness, unsteady gait, seizure, mental status changes, bladder or bowel incontinence PSYCHIATRIC: Absent: anxiety, depression, suicidal or homicidal ideation, hallucinations. PHYSICAL EXAMINATION Vital Signs - 24 hr 09/16/18 09/16/18 09/16/18 18:04 20:35 21:25 Temperature 99.2 F Pulse Rate 105 H Pulse Rate [ 96 H 89 Apical] Respiratory 18 22 H Rate Blood Pressure 163/96 Blood Pressure 132/67 [Right Arm] O2 Sat by Pulse 100 97 Oximetry (%) GENERAL: Acute distress, AAOx3 HEAD: NC/AT EYES: EOMI EARS, NOSE, THROAT: MMM NECK: Supple, no JVD. LUNGS: CTAB HEART: RRR Nl S1S2 ABDOMEN: Severe left upper quadrant tenderness. No guarding or rigidity. BS +. MUSCULOSKELETAL: FROM throughout UPPER EXTREMITIES: 2+ pulses, warm, well-perfused. No cyanosis. No clubbing. No peripheral edema. LOWER EXTREMITIES: No CCE appreciated . NEUROLOGICAL: Cranial nerves II-XII intact. Normal speech. PSYCHIATRIC: Cooperative. Good eye contact. Appropriate mood and affect. SKIN: Warm, dry, normal turgor, no rashes or lesions noted, normal capillary refill. RECTAL: Pt refused rectal exam in ED. Laboratory Results - last 24 hr 09/16/18 09/16/18 09/16/18 18:30 18:30 18:30 WBC 9.0 RBC 4.12 Hgb 10.9 Hct 33.6 MCV 81.5 MCH 26.4 MCHC 32.4 RDW 15.5 Plt Count 292 D MPV 8.9 Absolute Neuts (auto) 6.3 Neutrophils % 70.2 D Lymphocytes % 21.6 D Monocytes % 6.2 Eosinophils % 1.2 Basophils % 0.8 Nucleated RBC % 0 Sodium 135 L Potassium 4.9 Chloride 102 Carbon Dioxide 25 Anion Gap 8 BUN 5 L Creatinine 0.6 Creat Clearance w eGFR 109.63 Random Glucose 107 H Lactic Acid Calcium 8.5 Magnesium 1.9 Total Bilirubin 0.5 AST 72 H ALT 85 H Alkaline Phosphatase 74 Creatine Kinase 95 Troponin I < 0.02 Total Protein 7.4 Albumin 3.6 Lipase 269 Urine Color Yellow Urine Appearance Clear Urine pH 6.0 Ur Specific [place] 1.006 L Urine Protein Negative Urine Glucose (UA) Negative Urine Ketones Negative Urine Blood Negative Urine Nitrite Negative Urine Bilirubin Negative Urine Urobilinogen 0.2 Ur Leukocyte Esterase Negative Urine HCG, Qual 09/16/18 09/16/18 18:30 20:32 WBC RBC Hgb Hct MCV MCH MCHC RDW Plt Count MPV Absolute Neuts (auto) Neutrophils % Lymphocytes % Monocytes % Eosinophils % Basophils % Nucleated RBC % Sodium Potassium Chloride Carbon Dioxide Anion Gap BUN Creatinine Creat Clearance w eGFR Random Glucose Lactic Acid 0.7 Calcium Magnesium Total Bilirubin AST ALT Alkaline Phosphatase Creatine Kinase Troponin I Total Protein Albumin Lipase Urine Color Urine Appearance Urine pH Ur Specific [place] Urine Protein Urine Glucose (UA) Urine Ketones Urine Blood Urine Nitrite Urine Bilirubin Urine Urobilinogen Ur Leukocyte Esterase Urine HCG, Qual Negative ASSESSMENT/PLAN: Pt is a 42 y/o lady with a significant past medical history of HTN, Upper GI Ulcer, and HLD who presented to [facility] yesterday evening c/o severe left upper quadrant pain. # Abdominal pain 2/2 PUD/Gastritis * EGD 09/12/18-----> Single 5 mm ulcer found in the 11 O'clock Prepyloric region of stomach w/ associated nodular mucosa. * Pt was placed on Triple therapy with Clarithromycin, amoxicillin, and PPI. Will hold at this juncture as abdominal may be 2/2 medication side effects. * CTAP IV/ PO contrast---> hepatomegaly, hepatic steatosis, possible sacroiliitis. * G.I Consult * Zofran PRN for Nausea. QTC 442. * PPI 40 mg IV BID * LR @ 100cc/hr * Rectal refused by pt. * Repeat CBC in am to assess for signs of acute blood lose * Morphine PRN #HTN Resume Amlodipine 2.5 MG Daily #HLD -Pt not on any medication. Will check ;lipid profile to assess need for possible therapeutic intervention. #FEN LR @ 75cc/hr Monitor Electrolytes NPO #DVT ppx SCD's #Dispo: Med-Surg Visit type - Emergency Visit Emergency Visit: Yes ED Registration Date: 09/17/18 Care time: The patient presented to the Emergency Department on the above date and was hospitalized for further evaluation of their emergent condition. - New Patient This patient is new to me today: Yes Date on this admission: 09/17/18 - Critical Care Critical Care patient: No
[2018-09-17] MEDS ORDERED: ONDANSETRON 4 MG/2 ML VIAL IVPUSH PRN (00:17)
[2018-09-17] MEDS ORDERED: MORPHINE SULFATE 2 MG/ML VIAL IVPUSH PRN (00:18)
[2018-09-17] MEDS ORDERED: PANTOPRAZOLE SODIUM 40 MG VIAL ONE (00:24)
[2018-09-17] MEDS: PANTOPRAZOLE SODIUM 40 MG VIAL IVPUSH SCH ×2 (00:37→09:12)
[2018-09-17] MEDS ORDERED: LACTATED RINGERS SOLUTION 1,000 ML/1,000 ML INFUS.BAG IV SCH ×2 (01:30→01:48)
[2018-09-17] MEDS ORDERED: MORPHINE SULFATE 2 MG/ML VIAL ONE (01:47)
[2018-09-17] MEDS ORDERED: ONDANSETRON 4 MG/2 ML VIAL ONE (01:47)
[2018-09-17] MEDS ORDERED: MORPHINE SULFATE 2 MG/ML VIAL IVPUSH ONE ×2 (05:51→09:10)
[2018-09-17 07:35] LABS: BASO % 0.4 % (0-2.0); HEMATOCRIT 30.6 % (32.4-45.2); HEMOGLOBIN 9.9 GM/dL (10.7-15.3); LYMPH % 20.9 % (8-40); MCHC 32.4 g/dl (32.0-36.0); MEAN CELL VOLUME 80.5 fl (80-96); MEAN PLT VOLUME 8.5 fl (7.5-11.1); MONO % 7.7 % (3.8-10.2); PLATELET COUNT 266 K/MM3 (134-434); RBC 3.81 M/mm3 (3.60-5.2); RDW 15.7 % (11.6-15.6); WHITE BLOOD COUNT 8.9 K/mm3 (4.0-10.0)
[2018-09-17 07:46] LABS: INR 1.09 (0.83-1.09); PROTHROMBIN TIME (PATIENT) 12.9 SEC (9.7-13.0)
[2018-09-17 07:48] LABS: ACTIVATED PTT 31.5 SECONDS (25.2-36.5)
[2018-09-17 08:03] LABS: ALBUMIN 3.1 g/dl (3.4-5.0); ALK PHOS 62 U/L (45-117); ANION GAP 6 MMOL/L (8-16); BILIRUBIN,TOTAL 0.6 mg/dL (0.2-1); BLOOD UREA NITROGEN 4 mg/dL (7-18); CALCIUM 8.3 mg/dL (8.5-10.1); CHLORIDE 105 mmol/L (98-107); CO2 25 mmol/L (21-32); CREATININE 0.6 mg/dL (0.55-1.3); GLUCOSE,RANDOM 109 mg/dL (74-106); MAGNESIUM 2.1 mg/dL (1.8-2.4); PHOSPHOROUS 3.4 mg/dL (2.5-4.9); POTASSIUM 3.9 mmol/L (3.5-5.1); SGOT/AST 34 U/L (15-37); SGPT/ALT 67 U/L (13-61); SODIUM 136 mmol/L (136-145); TOT PROT 6.4 g/dl (6.4-8.2)
[2018-09-17] MEDS ORDERED: ACETAMINOPHEN 1000 MG/100 ML VIAL (NON FORMULARY) IVPB ONE (08:44)
[2018-09-17] MEDS: amLODIPine BESYLATE 2.5 MG TABLET (FP) PO SCH (09:12)
[2018-09-17] MEDS ORDERED: DOCUSATE SODIUM 100 MG CAPSULE (FP) PO SCH (10:00)
[2018-09-17] MEDS ORDERED: AMLODIPINE BESYLATE 2.5 MG PO SCH (10:00)
[2018-09-17] MEDS: MORPHINE SULFATE 2 MG/ML VIAL IVPUSH PRN ×3 (13:31→22:34)
--- NOTE | 2018-09-17 15:12 | CON.GI ---
Consult Consult Specialty:: GI Referred by:: Hospitalist Service Reason for Consultation:: Abdominal pain - History of Present Illness Chief Complaint: Nausea, vomiting, pain under left breast and left sided chest pain. Also burning with urination. History of Present Illness: Please refer to 09/10/18 consultation and 09/11/18 endoscopy report. Patient now admitted for progressive nausea, vomiting and left sided pain under her left breast. The pain radiates to her left chest as well. Pathology from her recent endoscopy revealed her to be h. pylori +. It does not appear as though she discussed recent upper endoscopy with her PMD or with the bariatric surgeon she had seen prior to her recent admission. Anyways, she apparently saw this bariatric surgeon prior to the events leading up to her last admission. Coincidentally, he tested her for h. pylori via stool antigen testing and he just called her last week about it. Apparently this led to her PMD starting triple therapy for H. pylori eradication. It actually wasn't started secondary to the EGD findings. She started therapy friday evening. These new symptoms began around . The left sided pain is worse when she takes a deep breath. She denies change in bowel habits. Admission CT scan did not reveal a dilated stomach. It revealed right cystic pelvic changes. The spleen was described as normal. the liver was enlarged and was c/w fatty infiltration. Abdominal US performed this admission revealed cholelithiasis, an enlarged echogenic liver c/w fatty liver, hepatopedal flow in the main portal vein. She denies melena, rectal bleeding and was noted to be guaiac negative on last admission. Screenng hepatitis serologies were unrevealing aside from + hepatitis A IgG antibody (she needs hep B vaccination). I advised further outpatient work-up of her mild transaminitis. - History Source History Provided By: Patient, Medical Record - Past Medical History Cardio/Vascular: Yes: HTN, Hyperlipdemia Gastrointestinal: Yes: Peptic Ulcer Disease (09/11/18 EGD: H. 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 Place of : Other ([employer]) History of Recent Travel: No Home Medications - Allergies Allergies/Adverse Reactions: Allergies Allergy/AdvReac Type Severity Reaction Status Date / Time Sulfa (Sulfonamide Allergy Severe Rash Verified 09/16/18 21:21 Antibiotics) ibuprofen Allergy Verified 09/16/18 18:07 hydromorphone [From Dilaudid] AdvReac Intermediate Itching Verified 09/09/18 07: 06 - Home Medications Home Medications: Ambulatory Orders Cholecalciferol (Vitamin D3) [Vitamin D3] 2,000 unit PO DAILY 07/31/16 Amlodipine Besylate 2.5 mg PO DAILY 09/01/18 Iron 1 tab PO DAILY 09/01/18 Acetaminophen W/ Codeine #3 [Tylenol # 3 -] 1 tab PO Q4H PRN #20 tablet MDD 6 Pantoprazole Sodium [Protonix -] 20 mg PO BID #60 tablet.ec 09/12/18 Docusate Sodium [Colace -] 300 mg PO BID 09/16/18 Amoxicillin - [Amoxicillin 500mg Capsule -] 500 mg PO BID 09/17/18 Clarithromycin 500 mg PO BID 09/17/18 Gabapentin 1 tab PO TID 09/17/18 Tizanidine HCl 1 tab PO TID 09/17/18 Family Disease History - Family Disease History Family Disease History: Other: Father (: 65: post-op complications), Mother (alive: healthy), Son (2, healthy), Daughter (1, healthy) Other Family History: No family history of colorectal cancer or other GI malignancy Review of Systems - Review of Systems Constitutional: reports: Fever (tactile). denies: Chills, Unintentional Wgt. Loss Cardiovascular: reports: Chest Pain. denies: Shortness of Breath Respiratory: denies: Cough Gastrointestinal: reports: Abdominal Pain, Nausea, Vomiting. denies: Diarrhea, Dysphagia, Indigestion Genitourinary: reports: Burning, Flank Pain Physical Exam-GI Vital Signs: Vital Signs Temperature 98.4 F 09/17/18 14:00 Pulse Rate 79 09/17/18 14:00 Respiratory Rate 18 09/17/18 14:00 Blood Pressure 128/72 09/17/18 14:00 O2 Sat by Pulse Oximetry (%) 100 09/17/18 01:40 Constitutional: Yes: Calm Eyes: No: Sclera Icterus Cardiovascular: Yes: Regular Rate and Rhythm. No: Murmur Respiratory: Yes: CTA Bilaterally Gastrointestinal Inspection: Yes: Scars (healed lower abdominopelvic trochar scars). No: Distention ...Auscultate: Yes: Normoactive Bowel Sounds ...Palpate: Yes: Soft, Tenderness (tenderness to palpation along the left lower ribs, laterl lower ribs (casuing patient to cry) and + CVA tenderness. + tenderness to palpation of the LUQ. When other areas of her abdomen are pressed , she explains that the pain is all referred to the LUQ under the breast.). No : Hepatomegaly ...Percussion: No: Tympanitic Edema: No (No LE edema) Neurological: Yes: Alert Labs: CBC, BMP 09/17/18 06:05 09/17/18 06:05 INR, PTT INR 1.09 (0.83-1.09) 09/17/18 06:05 Hepatic Panel Total Bilirubin 0.6 mg/dL (0.2-1) 09/17/18 06:05 AST 34 U/L (15-37) 09/17/18 06:05 ALT 67 U/L (13-61) H 09/17/18 06:05 Alkaline Phosphatase 62 U/L (45-117) 09/17/18 06:05 Albumin 3.1 g/dl (3.4-5.0) L 09/17/18 06:05 Imaging - Results Cat Scan: Report Reviewed Ultrasound: Report Reviewed Problem List - Problems (1) Left upper quadrant abdominal pain of unknown etiology Assessment/Plan: Pain is reproducible upon palpation of the lower ribs. also associated with referred left sided chest pain with pleuritic component. She also has CVA tenderness on the left side. Unclear what is causing these constellations of symptoms. Recent endoscopic findings would not explain this degree of pain. Patient with vomiting however stomach was non distended on CT scan, upper endoscope was able to traverse the pylorus without much difficulty, making gastric outlet obstruction less likely No evidence of significant portal vein thrombosis on US It is unclear if this is a reaction to her current h. pylori medication regimen ? if musculoskeletal component to her pain Advise: Continuing protonix 20mg PO BID Evaluation of left sided rib pain and referred left sided chest pain per primary team Unclear if this is a reaction to her current medication regimen but without any other obvious cause, would stop them for now. She will need to be treated for h. pylori given her associated ulcer and once h. pylori eradication confirmed, will need repeat EGD to confirm ulcer healing. Will need hep B vaccination Code(s): R10.12 - LEFT UPPER QUADRANT PAIN
--- NOTE | 2018-09-17 16:35 | EKG ---
Test Reason : Blood Pressure : / mmHG Vent. Rate : 090 BPM Atrial Rate : 090 BPM P-R Int : 164 ms QRS Dur : 090 ms QT Int : 354 ms P-R-T Axes : 048 017 030 degrees QTc Int : 433 ms NORMAL SINUS RHYTHM POSSIBLE LEFT ATRIAL ENLARGEMENT NONSPECIFIC T WAVE ABNORMALITY ABNORMAL ECG WHEN COMPARED WITH ECG OF 16-SEP-2018 23:50, NO SIGNIFICANT CHANGE WAS FOUND Confirmed by ANGELO PAULINO MD ([id number]) on 09/17/2018 4:35:09 PM Referred By: Confirmed By:ANGELO PAULINO MD
--- NOTE | 2018-09-17 16:36 | EKG ---
Test Reason : Blood Pressure : / mmHG Vent. Rate : 082 BPM Atrial Rate : 082 BPM P-R Int : 156 ms QRS Dur : 084 ms QT Int : 376 ms P-R-T Axes : 059 019 026 degrees QTc Int : 439 ms NORMAL SINUS RHYTHM POSSIBLE LEFT ATRIAL ENLARGEMENT NONSPECIFIC T WAVE ABNORMALITY ABNORMAL ECG WHEN COMPARED WITH ECG OF 16-SEP-2018 18:08, NONSPECIFIC T WAVE ABNORMALITY NOW EVIDENT IN LATERAL LEADS Confirmed by JEFFERSON MIRANDA, ANGELO ([id number]) on 09/17/2018 4:36:05 PM Referred By: Confirmed By:ANGELO PAULINO MD
[2018-09-17] MEDS: LACTATED RINGERS SOLUTION 1,000 ML/1,000 ML INFUS.BAG IV SCH (16:54)
--- NOTE | 2018-09-17 17:43 | PN ---
Physical Exam: SUBJECTIVE: Patient seen and examined this AM. Complains of extreme abdominal pain that radiates to her chest and Left shoulder worse with deep inhalation. Feels nausea but no vomiting since admission. Endorse medication compliance. No recent changes in bowel habits or diet. Denies any recent trauma to the abdomen or chest. OBJECTIVE: Vital Signs Period Temp Pulse Resp BP Sys/Powell Pulse Ox Last 24 Hr 98.2 F-100 F 79-105 18-22 118-163/63-96 97-100 GENERAL: A&Ox3, Mild distress HEAD: NCAT EYES: PERRL, EOMI ENT: moist mucous membranes. NECK: Supple LUNGS: Diminished breath sounds at the bases, no wheezes, no crackles HEART: Regular rate and rhythm, S1, S2 without murmur ABDOMEN: Soft, nondistended, + bowel sounds, no guarding. Tender to palpation over the b/l upper quadrants with pain radiating to the Left shoulder. EXTREMITIES: no edema NEUROLOGICAL: Cranial nerves II through XII grossly intact. SKIN: Warm, dry. Healed scars present over the lower abdomen Laboratory Results - last 24 hr 09/16/18 09/16/18 09/16/18 18:30 18:30 18:30 WBC 9.0 RBC 4.12 Hgb 10.9 Hct 33.6 MCV 81.5 MCH 26.4 MCHC 32.4 RDW 15.5 Plt Count 292 D MPV 8.9 Absolute Neuts (auto) 6.3 Neutrophils % 70.2 D Lymphocytes % 21.6 D Monocytes % 6.2 Eosinophils % 1.2 Basophils % 0.8 Nucleated RBC % 0 PT with INR INR PTT (Actin FS) Sodium 135 L Potassium 4.9 Chloride 102 Carbon Dioxide 25 Anion Gap 8 BUN 5 L Creatinine 0.6 Creat Clearance w eGFR 109.63 Random Glucose 107 H Lactic Acid Calcium 8.5 Phosphorus Magnesium 1.9 Total Bilirubin 0.5 AST 72 H ALT 85 H Alkaline Phosphatase 74 Creatine Kinase 95 Troponin I < 0.02 Total Protein 7.4 Albumin 3.6 Lipase 269 Urine Color Yellow Urine Appearance Clear Urine pH 6.0 Ur Specific [place] 1.006 L Urine Protein Negative Urine Glucose (UA) Negative Urine Ketones Negative Urine Blood Negative Urine Nitrite Negative Urine Bilirubin Negative Urine Urobilinogen 0.2 Ur Leukocyte Esterase Negative Urine HCG, Qual 09/16/18 09/16/18 09/17/18 18:30 20:32 06:05 WBC 8.9 RBC 3.81 Hgb 9.9 L Hct 30.6 L MCV 80.5 MCH 26.0 MCHC 32.4 RDW 15.7 H Plt Count 266 MPV 8.5 Absolute Neuts (auto) 6.2 Neutrophils % 70.0 Lymphocytes % 20.9 Monocytes % 7.7 Eosinophils % 1.0 Basophils % 0.4 Nucleated RBC % 0 PT with INR INR PTT (Actin FS) Sodium Potassium Chloride Carbon Dioxide Anion Gap BUN Creatinine Creat Clearance w eGFR Random Glucose Lactic Acid 0.7 Calcium Phosphorus Magnesium Total Bilirubin AST ALT Alkaline Phosphatase Creatine Kinase Troponin I Total Protein Albumin Lipase Urine Color Urine Appearance Urine pH Ur Specific [place] Urine Protein Urine Glucose (UA) Urine Ketones Urine Blood Urine Nitrite Urine Bilirubin Urine Urobilinogen Ur Leukocyte Esterase Urine HCG, Qual Negative 09/17/18 09/17/18 09/17/18 06:05 06:05 08:33 WBC RBC Hgb Hct MCV MCH MCHC RDW Plt Count MPV Absolute Neuts (auto) Neutrophils % Lymphocytes % Monocytes % Eosinophils % Basophils % Nucleated RBC % PT with INR 12.90 INR 1.09 PTT (Actin FS) 31.5 Sodium 136 Potassium 3.9 Chloride 105 Carbon Dioxide 25 Anion Gap 6 L BUN 4 L Creatinine 0.6 Creat Clearance w eGFR 109.63 Random Glucose 109 H Lactic Acid Calcium 8.3 L Phosphorus 3.4 Magnesium 2.1 Total Bilirubin 0.6 AST 34 ALT 67 H Alkaline Phosphatase 62 Creatine Kinase Troponin I < 0.02 Total Protein 6.4 Albumin 3.1 L Lipase Urine Color Urine Appearance Urine pH Ur Specific [place] Urine Protein Urine Glucose (UA) Urine Ketones Urine Blood Urine Nitrite Urine Bilirubin Urine Urobilinogen Ur Leukocyte Esterase Urine HCG, Qual Active Medications Amlodipine Besylate (Norvasc -) 2.5 mg PO DAILY [facility] Last Admin: 09/17/18 09:12 Dose: 2.5 mg Lactated Ringer's (Lactated Ringers Solution) 1,000 ml in 1,000 mls @ 150 mls/ hr IV ASDIR ANGELES Last Admin: 09/17/18 16:54 Dose: 150 mls/hr Morphine Sulfate (Morphine Sulfate) 2 mg IVPUSH Q3H PRN PRN Reason: PAIN LEVEL 7 - 10 Last Admin: 09/17/18 16:54 Dose: 2 mg Ondansetron HCl (Zofran Injection) 4 mg IVPUSH Q8H PRN PRN Reason: NAUSEA Last Admin: 09/17/18 01:56 Dose: 4 mg Pantoprazole Sodium (Protonix -) 20 mg PO BID ANGELES IMAGING: -CXR: Unremarkable examination. No acute lung disease is present -CT A/P: The stomach is not distended and hence its wall could not be evaluated on this exam. Correlate clinically for further evaluation considering the clinical history of peptic ulcer disease. Hepatomegaly and hepatic steatosis. There is no evidence of small bowel obstruction. Previously visualized right adnexal cyst is again seen measuring 4.9 x 4.1 x 3.2 cm in craniocaudal, AP and transverse dimension without gross interval change in size. It appears to be inseparable from the right ovary. L4-L5 moderate bilateral facet hypertrophy. Left and mild right sacroiliac joint sclerotic changes. Correlate clinically to rule out sacroiliitis. -Abdominal US: Cholelithiasis. Hepatomegaly and diffuse fatty infiltration of the liver. -EKG: NSR< LAE, VR 90, QTc 433 ASSESSMENT/PLAN: 42 y/o F with PMHx of Gastric Ulcer, HTN, HLD was admitted for severe abdominal pain. #Abdominal pain -Unclear etiology--Less likely related to recent Ulcer, Still consider AE of H. Pylori Triple therapy -Urine preg neg, Urine Cx pending -Imaging noted above; TVUS pending -Mild LFT elevations improving -Hold Triple therapy -Pantoprazole 20mg PO BID -Morphine 2mg Q3H PRN -Ondansetron -IV LR @ 150 mls/hr -GI and OBgyn Consulted, Appreciate rec's #Anemia -Hgb dropped 1gm since admission -Trend H&H -Patient refuse Rectal at this time #Chest Pain -Trops < 0.02 x2 -EKG Noted above #Hx of HTN, HLD -HTN and tachycardia likley related to pain; Will control pain first, then consider additional medical therapy -Continue Amlodipine 2.5mg PO Daily #FEN -LR @ 75 mls/hr -Monitor Electrolytes -NPO #PPx -DVT: SCD's Visit type - Emergency Visit Emergency Visit: Yes ED Registration Date: 09/17/18 Care time: The patient presented to the Emergency Department on the above date and was hospitalized for further evaluation of their emergent condition. - New Patient This patient is new to me today: Yes Date on this admission: 09/17/18 - Critical Care Critical Care patient: No - Discharge Referral Referred to [facility] Med [facility]C.: No
--- NOTE | 2018-09-17 19:08 | PN ---
Teaching Attending Note Name of Resident: Ofelia Deluca ATTENDING PHYSICIAN STATEMENT I saw and evaluated the patient. I reviewed the resident's note and discussed the case with the resident. I agree with the resident's findings and plan as documented. SUBJECTIVE: Patient is crying bc of her pain. OBJECTIVE: Vital Signs Temperature 98.4 F 09/17/18 14:00 Pulse Rate 79 09/17/18 14:00 Respiratory Rate 18 09/17/18 14:00 Blood Pressure 128/72 09/17/18 14:00 O2 Sat by Pulse Oximetry (%) 100 09/17/18 01:40 GENERAL: The patient is awake, alert, and fully oriented, in no acute distress. HEAD: Normal with no signs of trauma. EYES: PERRL, extraocular movements intact, sclera anicteric, conjunctiva clear. ENT: Ears normal, oropharynx clear without exudates, moist mucous membranes. NECK: Trachea midline, full range of motion, supple. LUNGS: Breath sounds equal, clear to auscultation bilaterally, no wheezes, no crackles, no accessory muscle use. HEART: Regular rate and rhythm, S1, S2 without murmur, rub or gallop. ABDOMEN: Soft, left upper quadrant and midepigastric tenderness , positive bowel sounds, positive for voluntary guarding, no rebound, no masses. EXTREMITIES: 2+ pulses, warm, well-perfused, no edema. NEUROLOGICAL: Cranial nerves II through XII grossly intact. Normal speech, gait not observed. PSYCH: Normal mood, normal affect. SKIN: Warm, dry, normal turgor, no rashes or lesions noted CBCD WBC 8.9 K/mm3 (4.0-10.0) 09/17/18 06:05 RBC 3.81 M/mm3 (3.60-5.2) 09/17/18 06:05 Hgb 9.9 GM/dL (10.7-15.3) L 09/17/18 06:05 Hct 30.6 % (32.4-45.2) L 09/17/18 06:05 MCV 80.5 fl (80-96) 09/17/18 06:05 MCHC 32.4 g/dl (32.0-36.0) 09/17/18 06:05 RDW 15.7 % (11.6-15.6) H 09/17/18 06:05 Plt Count 266 K/MM3 (134-434) 09/17/18 06:05 MPV 8.5 fl (7.5-11.1) 09/17/18 06:05 CMP Sodium 136 mmol/L (136-145) 09/17/18 06:05 Potassium 3.9 mmol/L (3.5-5.1) 09/17/18 06:05 Chloride 105 mmol/L (98-107) 09/17/18 06:05 Carbon Dioxide 25 mmol/L (21-32) 09/17/18 06:05 Anion Gap 6 MMOL/L (8-16) L 09/17/18 06:05 BUN 4 mg/dL (7-18) L 09/17/18 06:05 Creatinine 0.6 mg/dL (0.55-1.3) 09/17/18 06:05 Creat Clearance w eGFR 109.63 (>60) 09/17/18 06:05 Random Glucose 109 mg/dL (74-106) H 09/17/18 06:05 Calcium 8.3 mg/dL (8.5-10.1) L 09/17/18 06:05 Total Bilirubin 0.6 mg/dL (0.2-1) 09/17/18 06:05 AST 34 U/L (15-37) 09/17/18 06:05 ALT 67 U/L (13-61) H 09/17/18 06:05 Alkaline Phosphatase 62 U/L (45-117) 09/17/18 06:05 Total Protein 6.4 g/dl (6.4-8.2) 09/17/18 06:05 Albumin 3.1 g/dl (3.4-5.0) L 09/17/18 06:05 CARDIAC ENZYMES Creatine Kinase 95 U/L (26-192) 09/16/18 18:30 Troponin I < 0.02 ng/ml (0.00-0.05) 09/17/18 08:33 Current Medications Generic Name Dose Route Start Last Admin Trade Name Freq PRN Reason Stop Dose Admin Amlodipine Besylate 2.5 mg 09/17/18 10:00 09/17/18 09:12 Norvasc - PO 2.5 mg DAILY ANGELES Administration Lactated Ringer's 1,000 ml in 1,000 mls @ 150 mls/hr 04/11/19 14:33 09/17/18 16:54 Lactated Ringers Solution IV 150 mls/hr ASDIR ANGELES Administration Morphine Sulfate 2 mg 09/17/18 12:00 09/17/18 16:54 Morphine Sulfate IVPUSH 2 mg Q3H PRN Administration PAIN LEVEL 7 - 10 Ondansetron HCl 4 mg 09/17/18 00:17 09/17/18 01:56 Zofran Injection IVPUSH 4 mg Q8H PRN Administration NAUSEA Pantoprazole Sodium 20 mg 09/17/18 22:00 Protonix - PO BID [facility] Home Medications Medication Instructions Recorded Cholecalciferol (Vitamin D3) 2,000 unit PO DAILY 07/31/16 [Vitamin D3] Amlodipine Besylate 2.5 mg PO DAILY 09/01/18 Iron 1 tab PO DAILY 09/01/18 Acetaminophen W/ Codeine #3 1 tab PO Q4H PRN #20 tablet MDD 6 09/09/18 [Tylenol # 3 -] Pantoprazole Sodium [Protonix -] 20 mg PO BID #60 tablet.ec 09/12/18 Docusate Sodium [Colace -] 300 mg PO BID 09/16/18 Amoxicillin - [Amoxicillin 500mg 500 mg PO BID 09/17/18 Capsule -] Clarithromycin 500 mg PO BID 09/17/18 Gabapentin 1 tab PO TID 09/17/18 Tizanidine HCl 1 tab PO TID 09/17/[address] scan did not reveal a dilated stomach. It revealed right cystic pelvic changes. The spleen was described as normal. the liver was enlarged and was c/w fatty infiltration. Abdominal US performed this admission revealed cholelithiasis, an enlarged echogenic liver c/w fatty liver, hepatopedal flow in the main portal vein. Positive for hepatitis A IgG antibody ASSESSMENT AND PLAN: Patient is a 42yo female with recent diagnosis of H.pylori , on triple antibiotic that was started 2 days ago, preneted to the ED. with progressive nausea, vomiting and left sided pain under her left breast that the pain radiates to her left chest as well. # Acute mid-epigastric pain most likely due to Biaxin since was taking for H.Pylori protocol. will continue with Protonix 20mg po bid , upon discharge , patient needs to follow up with her GI since untreated H. Pylori can turn into malignancy. patient was made aware that needs hep B vaccination. ordered :Us of abdomen/ vaginal US
--- NOTE | 2018-09-17 19:34 | CON.OBG ---
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 Was seen in ER last week and due to these complaints had workup including CT and pelvic sonogram. Due to concern for possible ovarian torsion, the patient was taken to the OR that day for laparoscopy and possible ovarian detorsion and cystectomy. Upon entering the abdomen, there was a small amount of hemoperitoneum which was evacuated. Thorough inspection if intra-abdominal contents (along with gen surg) including uterus, ovaries, fallopian tubes, small bowel, colon, stomach, liver, gall bladder and omentum revealed no source of bleeding and no active bleeding during that time. A single right ovarian cyst was noted which was removed during the procedure. No torsion was appreciated. After surgery, the patient continued to have epigastric/upper abdominal pain which was worked up by GI and a gastric ulcer was noted. H Pylori was noted upon final pathology on EGD biopsies. After the patient was able to tolerate soft foods, she was sent home from that admission. The H Pylori was discovered after discharge and she started triple therapy (by an outside physician) a few days ago. She presents again last evening to the ED with upper abdominal pain and nausea/ vomiting. NO new Vaginal Bleeding or pelvic symptoms. Some lower abdominal soreness at incision sites but no significant pelvic pain. CT showed continued RLQ cyst, likley retroperitoneal as ovarian cyst was removed and no other pelvic cysts noted upon surgery. - History Source History Provided By: Patient, Medical Record - Past Medical History Cardio/Vascular: Yes: HTN, Hyperlipdemia Gastrointestinal: Yes: Peptic Ulcer Disease (09/11/18 EGD: H. Pylori positive), Other (fatty liver) Hepatobiliary: Yes: Cholelithiasis, Other (fatty liver) ...LMP: 08/31/18 Musculoskeletal: Yes: Chronic low back pain - Past Surgical History Past Surgical History: Yes: (x 3) Additional Surgical History: laparoscopic ovarian cystectomy. 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 History of Recent Travel: No Home Medications - Allergies Allergies/Adverse Reactions: Allergies Allergy/AdvReac Type Severity Reaction Status Date / Time Sulfa (Sulfonamide Allergy Severe Rash Verified 09/16/18 21:21 Antibiotics) ibuprofen Allergy Verified 09/16/18 18:07 hydromorphone [From Dilaudid] AdvReac Intermediate Itching Verified 09/09/18 07: 06 - Home Medications Home Medications: Ambulatory Orders Cholecalciferol (Vitamin D3) [Vitamin D3] 2,000 unit PO DAILY 07/31/16 Amlodipine Besylate 2.5 mg PO DAILY 09/01/18 Iron 1 tab PO DAILY 09/01/18 Acetaminophen W/ Codeine #3 [Tylenol # 3 -] 1 tab PO Q4H PRN #20 tablet MDD 6 Pantoprazole Sodium [Protonix -] 20 mg PO BID #60 tablet.ec 09/12/18 Docusate Sodium [Colace -] 300 mg PO BID 09/16/18 Amoxicillin - [Amoxicillin 500mg Capsule -] 500 mg PO BID 09/17/18 Clarithromycin 500 mg PO BID 09/17/18 Gabapentin 1 tab PO TID 09/17/18 Tizanidine HCl 1 tab PO TID 09/17/18 Family Disease History - Family Disease History Family Disease History: Other: Father (: 65: post-op complications), Mother (alive: healthy), Son (2, healthy), Daughter (1, healthy) Other Family History: No family history of colorectal cancer or other GI malignancy Review of Systems - Review of Systems Constitutional: reports: Chills, Fever Cardiovascular: reports: Palpitations, Shortness of Breath, Other (left upper abd pain/rib pain - referred to chest) Gastrointestinal: reports: Abdominal Pain (upper), Nausea, Vomiting Integumentary: reports: No Symptoms Hematology/Lymphatic: reports: No Symptoms Psychiatric: reports: No Symptoms 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 Vital Signs: Vital Signs Temperature 98.5 F 09/17/18 17:08 Pulse Rate 80 09/17/18 17:08 Respiratory Rate 18 09/17/18 17:08 Blood Pressure 127/70 09/17/18 17:08 O2 Sat by Pulse Oximetry (%) 100 09/17/18 01:40 Constitutional: Yes: Well Nourished, Calm Cardiovascular: Yes: Regular Rate and Rhythm Gastrointestinal: Yes: Soft, Other (pain upon palpation in upper abdomen) Internal Exam Deferred: Yes Wound/Incision: Yes: Clean/Dry, Well Approximated Psychiatric: Yes: Alert, Oriented Labs: CBC, BMP 09/17/18 06:05 09/17/18 06:05 Problem List - Problems (1) Left upper quadrant abdominal pain of unknown etiology Code(s): R10.12 - LEFT UPPER QUADRANT PAIN (2) Gastroenteritis Code(s): K52.9 - NONINFECTIVE GASTROENTERITIS AND COLITIS, UNSPECIFIED Assessment/Plan CT and abdominal ultrasound reviewed. Right pelvic cyst noted, unchanged from prior exams, likely retroperitoneal as was not noted upon laparoscopy. Unlikely source of current pain. +H Pylori on EGD, treatment per GI pelvic ultrasound ordered - will review once completed
[2018-09-17] MEDS: PANTOPRAZOLE 20 MG TABLET (FP) PO SCH (22:29)
[2018-09-18] MEDS: MORPHINE SULFATE 2 MG/ML VIAL IVPUSH PRN ×4 (05:46→21:22)
[2018-09-18] MEDS: LACTATED RINGERS SOLUTION 1,000 ML/1,000 ML INFUS.BAG IV SCH (05:51)
[2018-09-18 08:00] LABS: BASO % 0.8 % (0-2.0); EOS % 1.8 % (0-4.5); HEMATOCRIT 29.8 % (32.4-45.2); HEMOGLOBIN 9.6 GM/dL (10.7-15.3); LYMPH % 27.7 % (8-40); MCH 25.9 pg (25.7-33.7); MCHC 32.1 g/dl (32.0-36.0); MEAN CELL VOLUME 80.8 fl (80-96); MEAN PLT VOLUME 8.8 fl (7.5-11.1); MONO % 8.6 % (3.8-10.2); NEUT % 61.1 % (42.8-82.8); PLATELET COUNT 259 K/MM3 (134-434); RBC 3.69 M/mm3 (3.60-5.2); RDW 15.5 % (11.6-15.6)
[2018-09-18 08:28] LABS: ALBUMIN 2.9 g/dl (3.4-5.0); ALK PHOS 61 U/L (45-117); ANION GAP 8 MMOL/L (8-16); BILIRUBIN,TOTAL 0.4 mg/dL (0.2-1); BLOOD UREA NITROGEN 4 mg/dL (7-18); CALCIUM 8.1 mg/dL (8.5-10.1); CHLORIDE 106 mmol/L (98-107); CO2 26 mmol/L (21-32); CREATININE 0.5 mg/dL (0.55-1.3); GLUCOSE,RANDOM 91 mg/dL (74-106); MAGNESIUM 2.2 mg/dL (1.8-2.4); PHOSPHOROUS 3.9 mg/dL (2.5-4.9); POTASSIUM 3.9 mmol/L (3.5-5.1); SGOT/AST 33 U/L (15-37); SGPT/ALT 58 U/L (13-61); SODIUM 139 mmol/L (136-145)
[2018-09-18] MEDS: PANTOPRAZOLE 20 MG TABLET (FP) PO SCH ×2 (09:38→21:27)
[2018-09-18] MEDS: amLODIPine BESYLATE 2.5 MG TABLET (FP) PO SCH (09:38)
--- NOTE | 2018-09-18 13:17 | PN.GI ---
GI Progress Note Subjective: Complains of continued left lower rib pain, left chest pain. She feels that the pain takes her breath away and is worse upon deep inspiration. - Objective Vital Signs: Vital Signs Temperature 98.5 F 09/18/18 10:00 Pulse Rate 84 09/18/18 10:00 Respiratory Rate 20 09/18/18 10:00 Blood Pressure 110/65 09/18/18 10:00 O2 Sat by Pulse Oximetry (%) 99 09/18/18 09:00 Constitutional: Calm Eyes: No: Sclera Icterus Cardiovascular: Yes: Regular Rate and Rhythm Respiratory: Yes: CTA Bilaterally ...Auscultate: Yes: Normoactive Bowel Sounds ...Palpate: No: Tenderness Musculoskeletal: Yes: Other (TTP along left anterior chest wall, left lower ribs ) Edema: No (No LE edema) Neurological: Yes: Alert Labs: CBC, BMP 09/18/18 06:30 09/18/18 06:40 INR, PTT INR 1.09 (0.83-1.09) 09/17/18 06:05 Problem List - Problems (1) Chest pain Assessment/Plan: left sided along with left rib pain No obvious splenic pathology noted on recent imaging Work-up per primary team Patient will need follow-up in my office Will sign off Code(s): R07.9 - CHEST PAIN, UNSPECIFIED
--- NOTE | 2018-09-18 16:43 | PN ---
Physical Exam: SUBJECTIVE: Patient seen and examined this AM. Continues to have abdominal pain with deep inhalation. No acute overnight events. OBJECTIVE: Vital Signs Period Temp Pulse Resp BP Sys/Powell Pulse Ox Last 24 Hr 98 F-99 F 74-84 16-20 110-127/54-70 99 GENERAL: A&Ox3, resting comfortably HEAD: NCAT EYES: PERRL, EOMI ENT: moist mucous membranes. NECK: Supple LUNGS: Diminished breath sounds at the bases, no wheezes, no crackles HEART: Regular rate and rhythm, S1, S2 without murmur ABDOMEN: Soft, nondistended, + bowel sounds, no guarding. Tender to palpation over the left anterior chest and lower ribs EXTREMITIES: no edema NEUROLOGICAL: Cranial nerves II through XII grossly intact. SKIN: Warm, dry. Healed scars present over the lower abdomen Laboratory Results - last 24 hr 09/18/18 09/18/18 06:30 06:40 WBC 6.0 RBC 3.69 Hgb 9.6 L Hct 29.8 L MCV 80.8 MCH 25.9 MCHC 32.1 RDW 15.5 Plt Count 259 MPV 8.8 Absolute Neuts (auto) 3.7 Neutrophils % 61.1 Lymphocytes % 27.7 D Monocytes % 8.6 Eosinophils % 1.8 Basophils % 0.8 Nucleated RBC % 0 Sodium 139 Potassium 3.9 Chloride 106 Carbon Dioxide 26 Anion Gap 8 BUN 4 L Creatinine 0.5 L Creat Clearance w eGFR 135.30 Random Glucose 91 Calcium 8.1 L Phosphorus 3.9 Magnesium 2.2 Total Bilirubin 0.4 AST 33 ALT 58 Alkaline Phosphatase 61 Total Protein 6.0 L Albumin 2.9 L Microbiology 09/16/18 18:30 Urine - Urine Clean Catch Urine Culture - Final NO GROWTH OBTAINED Active Medications Amlodipine Besylate (Norvasc -) 2.5 mg PO DAILY [facility] Last Admin: 09/18/18 09:38 Dose: 2.5 mg Lactated Ringer's (Lactated Ringers Solution) 1,000 ml in 1,000 mls @ 150 mls/ hr IV ASDIR ANGELES Last Admin: 09/18/18 05:51 Dose: 150 mls/hr Morphine Sulfate (Morphine Sulfate) 2 mg IVPUSH Q3H PRN PRN Reason: PAIN LEVEL 7 - 10 Last Admin: 09/18/18 16:10 Dose: 2 mg Ondansetron HCl (Zofran Injection) 4 mg IVPUSH Q8H PRN PRN Reason: NAUSEA Last Admin: 09/17/18 01:56 Dose: 4 mg Pantoprazole Sodium (Protonix -) 20 mg PO BID ANGELES Last Admin: 09/18/18 09:38 Dose: 20 mg IMAGING: -CXR: Unremarkable examination. No acute lung disease is present -CT A/P: The stomach is not distended and hence its wall could not be evaluated on this exam. Correlate clinically for further evaluation considering the clinical history of peptic ulcer disease. Hepatomegaly and hepatic steatosis. There is no evidence of small bowel obstruction. Previously visualized right adnexal cyst is again seen measuring 4.9 x 4.1 x 3.2 cm in craniocaudal, AP and transverse dimension without gross interval change in size. It appears to be inseparable from the right ovary. L4-L5 moderate bilateral facet hypertrophy. Left and mild right sacroiliac joint sclerotic changes. Correlate clinically to rule out sacroiliitis. -Abdominal US: Cholelithiasis. Hepatomegaly and diffuse fatty infiltration of the liver. -Left Rib XRay: AP view of the chest reveals a weak inspiration atelectatic changes at the left base and prominent mediastinum. First rib fracture is not seen. Detail views of the left ribs reveal no sign of a gross fracture. Again noted are the atelectatic changes at the left base. If findings do not resolve then further imaging with CT is suggested for further evaluation -EKG: NSR< LAE, VR 90, QTc 433 ASSESSMENT/PLAN: 42 y/o F with PMHx of Gastric Ulcer, HTN, HLD was admitted for severe abdominal pain. #Abdominal pain -Unclear etiology--Less likely related to recent Ulcer, Still consider AE of H. Pylori Triple therapy -Imaging and Micro noted above -Hold Triple therapy -Pantoprazole 20mg PO BID -Morphine 2mg Q3H PRN -Ondansetron -GI and OBgyn Consulted, Appreciate rec's #Anemia -H&H Trending down -Continue to monitor for signs of active bleeding #Hx of HTN -Continue Amlodipine 2.5mg PO Daily #FEN -No standing fluids -Monitor Electrolytes -Soft diet #PPx -DVT: SCD's Visit type - Emergency Visit Emergency Visit: Yes ED Registration Date: 09/17/18 Care time: The patient presented to the Emergency Department on the above date and was hospitalized for further evaluation of their emergent condition. - New Patient This patient is new to me today: No - Critical Care Critical Care patient: No - Discharge Referral Referred to [facility] No
[2018-09-18] MEDS: ACETAMINOPHEN 325 MG TABLET (FP) PO PRN (17:43)
--- NOTE | 2018-09-18 21:18 | PN ---
Teaching Attending Note Name of Resident: Ofelia Deluca ATTENDING PHYSICIAN STATEMENT I saw and evaluated the patient. I reviewed the resident's note and discussed the case with the resident. I agree with the resident's findings and plan as documented. SUBJECTIVE: Patient continues to have abdominal pain, feels the pain is unbearable. OBJECTIVE: Vital Signs Temperature 98.2 F 09/18/18 16:48 Pulse Rate 91 H 09/18/18 16:48 Respiratory Rate 20 09/18/18 16:48 Blood Pressure 127/68 09/18/18 16:48 O2 Sat by Pulse Oximetry (%) 99 09/18/18 09:00 GENERAL: The patient is awake, alert, and fully oriented, in no acute distress. HEAD: Normal with no signs of trauma. EYES: PERRL, extraocular movements intact, sclera anicteric, conjunctiva clear. ENT: Ears normal, oropharynx clear without exudates, moist mucous membranes. NECK: Trachea midline, full range of motion, supple. LUNGS: Breath sounds equal, clear to auscultation bilaterally, no wheezes, no crackles, no accessory muscle use. HEART: Regular rate and rhythm, S1, S2 without murmur, rub or gallop. ABDOMEN: Soft, left upper quadrant and midepigastric tenderness continues , positive bowel sounds, positive for voluntary guarding, no rebound, no masses. EXTREMITIES: 2+ pulses, warm, well-perfused, no edema. NEUROLOGICAL: Cranial nerves II through XII grossly intact. Normal speech, gait not observed. PSYCH: Normal mood, normal affect. SKIN: Warm, dry, normal turgor, no rashes or lesions noted CBCD WBC 6.0 K/mm3 (4.0-10.0) 09/18/18 06:30 RBC 3.69 M/mm3 (3.60-5.2) 09/18/18 06:30 Hgb 9.6 GM/dL (10.7-15.3) L 09/18/18 06:30 Hct 29.8 % (32.4-45.2) L 09/18/18 06:30 MCV 80.8 fl (80-96) 09/18/18 06:30 MCHC 32.1 g/dl (32.0-36.0) 09/18/18 06:30 RDW 15.5 % (11.6-15.6) 09/18/18 06:30 Plt Count 259 K/MM3 (134-434) 09/18/18 06:30 MPV 8.8 fl (7.5-11.1) 09/18/18 06:30 CMP Sodium 139 mmol/L (136-145) 09/18/18 06:40 Potassium 3.9 mmol/L (3.5-5.1) 09/18/18 06:40 Chloride 106 mmol/L (98-107) 09/18/18 06:40 Carbon Dioxide 26 mmol/L (21-32) 09/18/18 06:40 Anion Gap 8 MMOL/L (8-16) 09/18/18 06:40 BUN 4 mg/dL (7-18) L 09/18/18 06:40 Creatinine 0.5 mg/dL (0.55-1.3) L 09/18/18 06:40 Creat Clearance w eGFR 135.30 (>60) 09/18/18 06:40 Random Glucose 91 mg/dL (74-106) 09/18/18 06:40 Calcium 8.1 mg/dL (8.5-10.1) L 09/18/18 06:40 Total Bilirubin 0.4 mg/dL (0.2-1) 09/18/18 06:40 AST 33 U/L (15-37) 09/18/18 06:40 ALT 58 U/L (13-61) 09/18/18 06:40 Alkaline Phosphatase 61 U/L (45-117) 09/18/18 06:40 Total Protein 6.0 g/dl (6.4-8.2) L 09/18/18 06:40 Albumin 2.9 g/dl (3.4-5.0) L 09/18/18 06:40 CARDIAC ENZYMES Creatine Kinase 95 U/L (26-192) 09/16/18 18:30 Troponin I < 0.02 ng/ml (0.00-0.05) 09/17/18 08:33 Current Medications Generic Name Dose Route Start Last Admin Trade Name Freq PRN Reason Stop Dose Admin Acetaminophen 650 mg 09/18/18 17:31 09/18/18 17:43 Tylenol - PO 650 mg Q6H PRN Administration Fever Or Pain Amlodipine Besylate 2.5 mg 09/17/18 10:00 04/12/19 09:38 Norvasc - PO 2.5 mg DAILY ANGELES Administration Morphine Sulfate 2 mg 09/17/18 12:00 09/18/18 16:10 Morphine Sulfate IVPUSH 2 mg Q3H PRN Administration PAIN LEVEL 7 - 10 Ondansetron HCl 4 mg 09/17/18 00:17 09/17/18 01:56 Zofran Injection IVPUSH 4 mg Q8H PRN Administration NAUSEA Pantoprazole Sodium 20 mg 09/17/18 22:00 09/18/18 09:38 Protonix - PO 20 mg BID ANGELES Administration Home Medications Medication Instructions Recorded Cholecalciferol (Vitamin D3) 2,000 unit PO DAILY 07/31/16 [Vitamin D3] Amlodipine Besylate 2.5 mg PO DAILY 09/01/18 Iron 1 tab PO DAILY 09/01/18 Acetaminophen W/ Codeine #3 1 tab PO Q4H PRN #20 tablet MDD 6 09/09/18 [Tylenol # 3 -] Pantoprazole Sodium [Protonix -] 20 mg PO BID #60 tablet.ec 09/12/18 Docusate Sodium [Colace -] 300 mg PO BID 09/16/18 Amoxicillin - [Amoxicillin 500mg 500 mg PO BID 09/17/18 Capsule -] Clarithromycin 500 mg PO BID 09/17/18 Gabapentin 1 tab PO TID 09/17/18 Tizanidine HCl 1 tab PO TID 09/17/18 Abdominal US performed this admission revealed cholelithiasis, an enlarged echogenic liver c/w fatty liver, hepatopedal flow in the main portal vein. Admission CT scan did not reveal a dilated stomach. It revealed right cystic pelvic changes. The spleen was described as normal. the liver was enlarged and was c/w fatty infiltration. ASSESSMENT AND PLAN: Patient is a 42yo female with recent diagnosis of H.pylori , on triple antibiotic that was started 2 days ago, presented to the ED. with progressive nausea, vomiting and left sided pain under her left breast that the pain radiates to her left chest as well. # Acute mid-epigastric pain most likely due to Biaxin since was taking for H.Pylori protocol. will continue with Protonix 20mg po bid , patient was made aware that needs hep B vaccination. # US of abdomen: Fatty liver, enlarged liver with cholelithiasis Positive for hepatitis A IgG antibody DVT px: SCD
[2018-09-19] MEDS: ACETAMINOPHEN 325 MG TABLET (FP) PO PRN ×2 (07:04→13:28)
[2018-09-19 08:07] LABS: BASO % 1.1 % (0-2.0); EOS % 2.3 % (0-4.5); HEMATOCRIT 32.5 % (32.4-45.2); HEMOGLOBIN 10.3 GM/dL (10.7-15.3); LYMPH % 25.9 % (8-40); MCH 25.7 pg (25.7-33.7); MCHC 31.8 g/dl (32.0-36.0); MEAN CELL VOLUME 80.9 fl (80-96); MONO % 8.2 % (3.8-10.2); NEUT % 62.5 % (42.8-82.8); PLATELET COUNT 296 K/MM3 (134-434); RBC 4.02 M/mm3 (3.60-5.2); RDW 15.8 % (11.6-15.6); WHITE BLOOD COUNT 5.7 K/mm3 (4.0-10.0)
[2018-09-19] MEDS: PANTOPRAZOLE 20 MG TABLET (FP) PO SCH (11:16)
[2018-09-19] MEDS: amLODIPine BESYLATE 2.5 MG TABLET (FP) PO SCH (11:16)
[2018-09-19] MEDS: LACTATED RINGERS SOLUTION 1,000 ML/1,000 ML INFUS.BAG IV SCH (11:17)
--- NOTE | 2018-09-19 17:10 | DS ---
Physical Exam: SUBJECTIVE: Patient seen and examined Patient is feeling better. OBJECTIVE: Vital Signs Temperature 98 F 09/19/18 14:00 Pulse Rate 86 09/19/18 14:00 Respiratory Rate 18 09/19/18 14:00 Blood Pressure 115/71 09/19/18 14:00 O2 Sat by Pulse Oximetry (%) 99 09/18/18 09:00 PHYSICAL EXAM GENERAL: The patient is awake, alert, and fully oriented, in no acute distress. HEAD: Normal with no signs of trauma. EYES: PERRL, extraocular movements intact, sclera anicteric, conjunctiva clear. ENT: Ears normal, oropharynx clear without exudates, moist mucous membranes. NECK: Trachea midline, full range of motion, supple. LUNGS: Breath sounds equal, clear to auscultation bilaterally, no wheezes, no crackles, no accessory muscle use. HEART: Regular rate and rhythm, S1, S2 without murmur, rub or gallop. ABDOMEN: Soft, nontender, nondistended, normoactive bowel sounds, no guarding, no rebound, no hepatosplenomegaly. EXTREMITIES: 2+ pulses, warm, well-perfused, no edema. NEUROLOGICAL: Cranial nerves II through XII grossly intact. Normal speech, gait not observed. PSYCH: Normal mood, normal affect. SKIN: Warm, dry, normal turgor, no rashes or lesions noted. LABS Laboratory Results - last 24 hr 09/19/18 06:30 WBC 5.7 RBC 4.02 Hgb 10.3 L Hct 32.5 MCV 80.9 MCH 25.7 MCHC 31.8 L RDW 15.8 H Plt Count 296 MPV 9.0 Absolute Neuts (auto) 3.6 Neutrophils % 62.5 Lymphocytes % 25.9 Monocytes % 8.2 Eosinophils % 2.3 Basophils % 1.1 Nucleated RBC % 0 CBCD WBC 5.7 K/mm3 (4.0-10.0) 09/19/18 06:30 RBC 4.02 M/mm3 (3.60-5.2) 09/19/18 06:30 Hgb 10.3 GM/dL (10.7-15.3) L 09/19/18 06:30 Hct 32.5 % (32.4-45.2) 09/19/18 06:30 MCV 80.9 fl (80-96) 09/19/18 06:30 MCHC 31.8 g/dl (32.0-36.0) L 09/19/18 06:30 RDW 15.8 % (11.6-15.6) H 09/19/18 06:30 Plt Count 296 K/MM3 (134-434) 09/19/18 06:30 MPV 9.0 fl (7.5-11.1) 09/19/18 06:30 CMP Sodium 139 mmol/L (136-145) 09/18/18 06:40 Potassium 3.9 mmol/L (3.5-5.1) 09/18/18 06:40 Chloride 106 mmol/L (98-107) 09/18/18 06:40 Carbon Dioxide 26 mmol/L (21-32) 09/18/18 06:40 Anion Gap 8 MMOL/L (8-16) 09/18/18 06:40 BUN 4 mg/dL (7-18) L 09/18/18 06:40 Creatinine 0.5 mg/dL (0.55-1.3) L 09/18/18 06:40 Creat Clearance w eGFR 135.30 (>60) 09/18/18 06:40 Random Glucose 91 mg/dL (74-106) 09/18/18 06:40 Calcium 8.1 mg/dL (8.5-10.1) L 09/18/18 06:40 Total Bilirubin 0.4 mg/dL (0.2-1) 09/18/18 06:40 AST 33 U/L (15-37) 09/18/18 06:40 ALT 58 U/L (13-61) 09/18/18 06:40 Alkaline Phosphatase 61 U/L (45-117) 09/18/18 06:40 Total Protein 6.0 g/dl (6.4-8.2) L 09/18/18 06:40 Albumin 2.9 g/dl (3.4-5.0) L 09/18/18 06:40 CARDIAC ENZYMES Creatine Kinase 95 U/L (26-192) 09/16/18 18:30 Troponin I < 0.02 ng/ml (0.00-0.05) 09/17/18 08:33 Current Medications Generic Name Dose Route Start Last Admin Trade Name Freq PRN Reason Stop Dose Admin Acetaminophen 650 mg 09/18/18 17:31 09/19/18 13:28 Tylenol - PO 650 mg Q6H PRN Administration Fever Or Pain Amlodipine Besylate 2.5 mg 09/17/18 10:00 09/19/18 11:16 Norvasc - PO 2.5 mg DAILY ANGELES Administration Morphine Sulfate 2 mg 09/17/18 12:00 09/18/18 21:22 Morphine Sulfate IVPUSH 2 mg Q3H PRN Administration PAIN LEVEL 7 - 10 Ondansetron HCl 4 mg 09/17/18 00:17 09/17/18 01:56 Zofran Injection IVPUSH 4 mg Q8H PRN Administration NAUSEA Pantoprazole Sodium 20 mg 09/17/18 22:00 09/19/18 11:16 Protonix - PO 20 mg BID ANGELES Administration Home Medications Medication Instructions Recorded Cholecalciferol (Vitamin D3) 2,000 unit PO DAILY 07/31/16 [Vitamin D3] Amlodipine Besylate 2.5 mg PO DAILY 09/01/18 Iron 1 tab PO DAILY 09/01/18 Acetaminophen W/ Codeine #3 1 tab PO Q4H PRN #20 tablet MDD 6 09/09/18 [Tylenol # 3 -] Pantoprazole Sodium [Protonix -] 20 mg PO BID #60 tablet.ec 09/12/18 Docusate Sodium [Colace -] 300 mg PO BID 09/16/18 Amoxicillin - [Amoxicillin 500mg 500 mg PO BID 09/17/18 Capsule -] Clarithromycin 500 mg PO BID 09/17/18 Gabapentin 1 tab PO TID 09/17/18 Tizanidine HCl 1 tab PO TID 09/17/18 US of abdomen: Fatty liver, enlarged liver with cholelithiasis HOSPITAL COURSE: Date of Admission:09/17/18 Date of Discharge: 09/19/18 # Acute mid-epigastric pain most likely due to Biaxin since was taking for H.Pylori protocol. will continue with Protonix 20mg po bid , as per GI for now. #Newly disagnosed H.Pylori: recommended to continue protonix for now, and follow up with dr. Rondon within a week ,to change to a different regimen since was not able to tolerate Biaxin. Patient developed severe intractable nausea and vomiting. comfortable now. will discharge the patient home on Protonix. patient will follow with Dr. Rondon within a week for h.pylori regimen. will discharge the patient. Minutes to complete discharge: 35 Discharge Summary Reason For Visit: CYST OF OVARY,STEATOSIS OF LIVER,LEFT UPPER QUADRA Current Active Problems Chest pain (Acute) Constipation (Acute) Fatty liver (Acute) Left upper quadrant abdominal pain of unknown etiology (Acute) Ovarian cyst (Acute) Condition: Stable - Instructions Diet, Activity, Other Instructions: Lifestyle modification is needed. Low fat/low cholesterol, no added sugar diet. Most likely the symptoms that you were experiencing due to Biaxin the antibiotic that you were on. At this time continue taking protonix 20mg 2x per day, follow up with for further treatment. continue doing the incentive spirometer 4x per day 10x each. you can take tylenol for pain, do not exceed more than 3gm of tylenol per day. Referrals: Baltazar Rondon DO [Staff Physician] - 1 Week Disposition: HOME - Home Medications Comprehensive Discharge Medication List: Ambulatory Orders Cholecalciferol (Vitamin D3) [Vitamin D3] 2,000 unit PO DAILY 07/31/16 Amlodipine Besylate 2.5 mg PO DAILY 09/01/18 Iron 1 tab PO DAILY 09/01/18 Acetaminophen W/ Codeine #3 [Tylenol # 3 -] 1 tab PO Q4H PRN #20 tablet MDD 6 Pantoprazole Sodium [Protonix -] 20 mg PO BID #60 tablet.ec 09/12/18 Docusate Sodium [Colace -] 300 mg PO BID 09/16/18 Amoxicillin - [Amoxicillin 500mg Capsule -] 500 mg PO BID 09/17/18 Clarithromycin 500 mg PO BID 09/17/18 Gabapentin 1 tab PO TID 09/17/18 Tizanidine HCl 1 tab PO TID 09/17/18 This patient is new to me today: No Emergency Visit: Yes ED Registration Date: 09/17/18 Care time: The patient presented to the Emergency Department on the above date and was hospitalized for further evaluation of their emergent condition. Critical Care patient: No - Discharge Referral Referred to [facility] No
[2018-09-19 17:11] VITALS: BP 105/54; PULSE 83; TEMP 98.2
[2018-09-19] MEDS ORDERED: ACETAMINOPHEN 325 MG TABLET (FP) PO ONE (17:30)
--- NOTE | 2018-09-21 10:43 | EKG ---
Test Reason : Blood Pressure : / mmHG Vent. Rate : 095 BPM Atrial Rate : 095 BPM P-R Int : 160 ms QRS Dur : 080 ms QT Int : 352 ms P-R-T Axes : 058 037 045 degrees QTc Int : 442 ms NORMAL SINUS RHYTHM POSSIBLE LEFT ATRIAL ENLARGEMENT BORDERLINE ECG WHEN COMPARED WITH ECG OF 09-SEP-2018 04:15, NO SIGNIFICANT CHANGE WAS FOUND Confirmed by ANGELO PAULINO MD ([id number]) on 09/21/2018 10:43:01 AM Referred By: Confirmed By:ANGELO PAULINO MD
== END 2018-09-19 18:53 | disposition home or self-care (01) | DRG 251 ==
LOC: JER 18:00 → JERBED 22:33 → OBSVTOIN 09-17 00:14 → J8W 09-17 02:25
PROVIDERS: ADMIT Internal Medicine; ATTEND Internal Medicine
DX: R10.12 Left upper quadrant pain (principal); T36.3X5A Adverse effect of macrolides, initial encounter; R71.0 Precipitous drop in hematocrit; K59.00 Constipation, unspecified; R07.9 Chest pain, unspecified; B96.81 Helicobacter pylori [H. pylori] as the cause of diseases classified elsewhere; K76.0 Fatty (change of) liver, not elsewhere classified; I10 Essential (primary) hypertension; E78.5 Hyperlipidemia, unspecified; E66.9 Obesity, unspecified; Z68.33 Body mass index [BMI] 33.0-33.9, adult
CPT/HCPCS: 36415; 71045-TC-FY; 71101-TC-LT-FY; 74177-TC; 76705-TC; 76830-TC; 80053; 81003; 82550; 83605; 83690; 83735; 84100; 84484; 84703; 85025; 85610; 85730; 87086; 93005; 93010; 99285-25; G0378; J7030

== ENCOUNTER 2019-07-09 05:54 | Inpatient (IN) | payer OTHER ==
[2019-07-09] MEDS ORDERED: ALBUTEROL SO4 2.5/IPRATROPIUM 0.5 INH SOL 3 ML VIAL.NEB. NEB ONE (06:25)
[2019-07-09] MEDS ORDERED: ONDANSETRON 4 MG/2 ML VIAL IVPUSH ONE (06:35)
[2019-07-09] MEDS ORDERED: morphine CARPU-JECT 4 MG/1 ML DISP.SYRIN IVPUSH ONE ×2 (06:35→08:28)
[2019-07-09] MEDS ORDERED: SODIUM CHLORIDE 1,000 ML IV STA (06:35)
--- NOTE | 2019-07-09 06:40 | PDOC ---
Attending Attestation - Resident Resident Name: RoccoarthurCarlineWood - ED Attending Attestation I have performed the following: I have examined & evaluated the patient, The case was reviewed & discussed with the resident, I agree w/resident's findings & plan, Exceptions are as noted - HPI HPI: 07/09/19 06:37 43 F with h/o HLD, PUD, cholelithiasis, presenting to ED with RUQ pain. Pt reports that she was seen at [facility] recently for the same complaint and found to have gallstones but no cholecystitis. Today, pt reports worsening of her pain, which radiates to her R shoulder. Endorses subjective fevers and chills, nausea and vomiting, no diarrhea. - Physicial Exam PE: 07/09/19 06:39 "GENERAL: Awake, alert, and fully oriented, in no acute distress. HEAD: No signs of trauma EYES: PERRLA, EOMI, sclera anicteric, conjunctiva clear ENT: Auricles normal inspection, hearing grossly normal, nares patent, oropharynx clear without exudates. Moist mucosa NECK: Nontender, no stepoffs, Normal ROM, supple, no lymphadenopathy, JVD, or masses LUNGS: Breath sounds equal, clear to auscultation bilaterally. No wheezes, and no crackles HEART: Regular rate and rhythm, normal S1 and S2, no murmurs, rubs or gallops ABDOMEN: + RUQ TTP, normoactive bowel sounds. No guarding, no rebound. No masses EXTREMITIES: Normal range of motion, no edema. No clubbing or cyanosis. No cords, erythema, or tenderness NEUROLOGICAL: Cranial nerves II through XII intact. 5/5 strength and sensation in all extremities, Normal speech, normal gait, normal cerebellar function SKIN: Warm, Dry, normal turgor, no rashes or lesions noted. - Medical Decision Making 07/09/19 06:39 43 F with RUQ pain. Has h/o gallstones. Will evaluate for acute cholecystitis. - Labs, lipase - RUQ sono - Pain control
[2019-07-09] MEDS ORDERED: morphine SULFATE 4 MG/ML VIAL ONE ×2 (06:47→08:54)
[2019-07-09] MEDS ORDERED: ONDANSETRON 4 MG/2 ML VIAL ONE (06:48)
--- NOTE | 2019-07-09 07:02 | PDOC ---
History of Present Illness - General Chief Complaint: Pain Stated Complaint: ABD PAIN,VOMITING Time Seen by Provider: 07/09/19 06:17 History Source: Patient, Family, Old Records Exam Limitations: No Limitations - History of Present Illness Initial Comments: 07/09/19 06:55 Abelardo Don is a 43F with PMH recently diagnosed gallstones presenting with RUQ pain, nausea, vomiting, poor PO intake. Was seen 2 days ago at [facility], got US and MRI showing non- obstructive gallstones, discharged home. Saw PMD yesterday, given Zofran for nausea. Has tried drinking juice and crackers but has been vomiting it all up. Pain worse with movement. Now here for pain that has been worsening. Denies fever but has chills. Denies diarrhea/constipation. Had in 2011. Allergy to sulfa drugs. Denies other PMH. Past History - Past Medical History Allergies/Adverse Reactions: Allergies Allergy/AdvReac Type Severity Reaction Status Date / Time Sulfa (Sulfonamide Allergy Severe Rash Verified 09/16/18 21:21 Antibiotics) ibuprofen Allergy Verified 09/16/18 18:07 hydromorphone [From Dilaudid] AdvReac Intermediate Itching Verified 09/09/18 07: 06 Home Medications: Ambulatory Orders Cholecalciferol (Vitamin D3) [Vitamin D3] 2,000 unit PO DAILY 07/31/16 Amlodipine Besylate 2.5 mg PO DAILY 09/01/18 Iron 1 tab PO DAILY 09/01/18 Acetaminophen W/ Codeine #3 [Tylenol # 3 -] 1 tab PO Q4H PRN #20 tablet MDD 6 Pantoprazole Sodium [Protonix -] 20 mg PO BID #60 tablet.ec 09/12/18 Docusate Sodium [Colace -] 300 mg PO BID 09/16/18 Gabapentin 1 tab PO TID 09/17/18 Tizanidine HCl 1 tab PO TID 09/17/18 Acetaminophen [Tylenol .Regular Strength -] 650 mg PO Q6H PRN tablet 09/19/18 Anemia: Yes (HODGKIN DISEASE) Asthma: No Cancer: Yes (HODGKINS: 2002) Cardiac Disorders: No CVA: No COPD: No CHF: No Dementia: No Diabetes: No GI Disorders: No Disorders: No HTN: Yes Hypercholesterolemia: Yes Liver Disease: No Seizures: No Thyroid Disease: No - Surgical History Abdominal Surgery: Yes Appendectomy: No Cardiac Surgery: No Cholecystectomy: No Lung Surgery: No Neurologic Surgery: No Orthopedic Surgery: Yes (CTR RIGHT) - Immunization History Td Vaccination: Yes TDAP Vaccination: Yes Immunization Up to Date: Yes - Psycho Social/Smoking Cessation Hx Smoking Status: Yes (FRISIAN TOBACCO) Smoking History: Never smoked Have you smoked in the past 12 months: No Number of Cigarettes Smoked Daily: 0 Hx Alcohol Use: No Drug/Substance Use Hx: No Substance Use Type: None Hx Substance Use Treatment: No Review of Systems - Review of Systems Able to Perform ROS?: Yes Constitutional: Yes: Chills. No: Fever HEENTM: No: Symptoms Reported Respiratory: No: Symptoms reported Cardiac (ROS): No: Symptoms Reported ABD/GI: Yes: Nausea, Poor Appetite, Poor Fluid Intake, Other (abdominal pain). No: Constipated, Diarrhea : No: Symptoms Reported Musculoskeletal: No: Symptoms Reported Integumentary: No: Symptoms Reported Neurological: No: Symptoms reported Endocrine: No: Symptoms Reported Hematologic/Lymphatic: No: Symptoms Reported All Other Systems: Reviewed and Negative *Physical Exam - Vital Signs Last Vital Signs Temp Pulse Resp BP Pulse Ox 97.8 F 86 20 146/80 99 07/09/19 06:14 07/09/19 06:14 07/09/19 06:14 07/09/19 06:14 07/09/19 06:14 - Physical Exam General Appearance: Yes: Nourished, Appropriately Dressed, Moderate Distress, Obese HEENT: positive: EOMI, RICHY, Normal Voice, Symmetrical, Pharynx Normal. negative: Scleral Icterus (R), Scleral Icterus (L), Pharyngeal Erythema, Tonsillar Exudate, Tonsillar Erythema Neck: positive: Trachea midline, Supple. negative: Tender, Lymphadenopathy (R) , Lymphadenopathy (L) Respiratory/Chest: positive: Lungs Clear, Normal Breath Sounds. negative: Chest Tender, Respiratory Distress, Accessory Muscle Use, Crackles, Rales, Rhonchi, Stridor, Wheezing Cardiovascular: positive: Regular Rhythm, Regular Rate. negative: Murmur Gastrointestinal/Abdominal: positive: Normal Bowel Sounds, Tender (RUQ), Soft, Protuberent, Guarding, Rebound. negative: Organomegaly Musculoskeletal: positive: Normal Inspection. negative: CVA Tenderness, Vertebral Tenderness Extremity: positive: Normal Capillary Refill, Normal Inspection, Normal Range of Motion, Pelvis Stable. negative: Tender, Coldness, Pedal Edema, Swelling Integumentary: positive: Normal Color, Warm, Diaphoresis Neurologic: positive: Fully Oriented, Alert, Normal Mood/Affect, Normal Response ED Treatment Course - LABORATORY CBC & Chemistry Diagram: 07/09/19 06:30 07/09/19 06:30 - Medications Given in the ED: ED Medications Discontinued Medications Generic Name Dose Route Start Last Admin Trade Name Jennifer PRN Reason Stop Dose Admin Morphine Sulfate 4 mg 07/09/19 06:35 07/09/19 06:54 Morphine Injection - IVPUSH 07/09/19 06:36 4 mg ONCE ONE Administration Ondansetron HCl 4 mg 07/09/19 06:35 07/09/19 06:54 Zofran Injection IVPUSH 07/09/19 06:36 4 mg ONCE ONE Administration Medical Decision Making - Medical Decision Making 07/09/19 07:00 Patient presents with known gallstones and RUQ pain, not tolerating PO. Afebrile , non-tachycardic. Tender with guarding to RUQ. Bedside US shows large stone in GB with CBD diameter 0.530, no yesika fluid, no wall thickening, positive sono Carson. Concerned for choldocholithiasis and cholecystitis. - CMP/CBC for eval lytes and infection - lipase for eval pancreatitis - coags - 1L NS, 4mg morphine, Zofran for symptom control Signing out to Dr. Summers, will need f.u labs and RUQ US for further eval. Discharge - Discharge Information Problems reviewed: Yes Clinical Impression/Diagnosis: Gallstones - Follow up/Referral - Patient Discharge Instructions - Post Discharge Activity
[2019-07-09 07:04] LABS: BASO % 0.6 % (0-2.0); EOS % 0.9 % (0-4.5); HEMATOCRIT 40.1 % (32.4-45.2); HEMOGLOBIN 13.5 GM/dL (10.7-15.3); LYMPH % 64.4 % (8-40); MCH 29.2 pg (25.7-33.7); MCHC 33.7 g/dl (32.0-36.0); MEAN CELL VOLUME 86.8 fl (80-96); MONO % 8.4 % (3.8-10.2); NEUT % 25.7 % (42.8-82.8); PLATELET COUNT 208 K/MM3 (134-434); RBC 4.61 M/mm3 (3.60-5.2); RDW 14.8 % (11.6-15.6); WHITE BLOOD COUNT 2.6 K/mm3 (4.0-10.0)
--- NOTE | 2019-07-09 07:12 | PDOC ---
*Physical Exam - Vital Signs Last Vital Signs Temp Pulse Resp BP Pulse Ox 97.8 F 86 20 146/80 99 07/09/19 06:14 07/09/19 06:14 07/09/19 06:14 07/09/19 06:14 07/09/19 06:14 <ButlerCelestina Courtjayro - Last Filed: 07/09/19 12:29> - Vital Signs Last Vital Signs Temp Pulse Resp BP Pulse Ox 97.8 F 86 20 146/80 99 07/09/19 06:14 07/09/19 06:14 07/09/19 06:14 07/09/19 06:14 07/09/19 06:14 <Fransisco Summers - Last Filed: 07/09/19 13:36> Heart Score/ECG Review #1 ECG reviewed & interpreted by me at: 07:15 General ECG Interpretation: Sinus Rhythm, Normal Rate, Normal Intervals 07/09/19 08:13 EKG normal sinus rhythm 71 bpm, no interval abnormalities, narrow QRS, ST and T wave segments and morphology normal. Nonspecific T wave abnormalities 07/09/19 08:14 <Celestina Butler - Last Filed: 07/09/19 12:29> ED Treatment Course - LABORATORY CBC & Chemistry Diagram: 07/09/19 06:30 07/09/19 06:30 - ADDITIONAL ORDERS Additional order review: Laboratory Results 07/09/19 07/09/19 07/09/19 06:40 06:40 06:30 WBC RBC Hgb Hct MCV MCH MCHC RDW Plt Count MPV Absolute Neuts (auto) Neutrophils % Lymphocytes % Monocytes % Eosinophils % Basophils % Nucleated RBC % Sodium Potassium Chloride Carbon Dioxide Anion Gap BUN Creatinine Est GFR (CKD-EPI)AfAm Est GFR (CKD-EPI)NonAf Random Glucose Calcium Total Bilirubin AST ALT Alkaline Phosphatase Total Protein Albumin Lipase 120 Urine Color Dk yellow Urine Appearance Cloudy Urine pH 5.5 Ur Specific [place] 1.030 Urine Protein Trace Urine Glucose (UA) Negative Urine Ketones Trace H Urine Blood Negative Urine Nitrite Negative Urine Bilirubin Small Urine Urobilinogen 1.0 Ur Leukocyte Esterase Negative Urine HCG, Qual Negative 07/09/19 07/09/19 06:30 06:30 WBC 2.6 L RBC 4.61 Hgb 13.5 Hct 40.1 D MCV 86.8 MCH 29.2 D MCHC 33.7 RDW 14.8 Plt Count 208 D MPV 9.0 Absolute Neuts (auto) 0.7 L Neutrophils % 25.7 L D Lymphocytes % 64.4 H D Monocytes % 8.4 Eosinophils % 0.9 Basophils % 0.6 Nucleated RBC % 0 Sodium 140 Potassium 3.4 L Chloride 105 Carbon Dioxide 28 Anion Gap 7 L BUN 7.4 Creatinine 0.5 L Est GFR (CKD-EPI)AfAm 137.39 Est GFR (CKD-EPI)NonAf 118.54 Random Glucose 116 H Calcium 8.4 L Total Bilirubin 0.3 AST 53 H ALT 84 H Alkaline Phosphatase 53 Total Protein 6.6 Albumin 3.2 L Lipase Urine Color Urine Appearance Urine pH Ur Specific [place] Urine Protein Urine Glucose (UA) Urine Ketones Urine Blood Urine Nitrite Urine Bilirubin Urine Urobilinogen Ur Leukocyte Esterase Urine HCG, Qual 07/09/19 06:30 RBC 4.61 MCV 86.8 MCHC 33.7 RDW 14.8 MPV 9.0 Neutrophils % 25.7 L D Lymphocytes % 64.4 H D Monocytes % 8.4 Eosinophils % 0.9 Basophils % 0.6 - Medications Given in the ED: ED Medications Discontinued Medications Generic Name Dose Route Start Last Admin Trade Name Freq PRN Reason Stop Dose Admin Sodium Chloride 1,000 mls @ 1,000 mls/hr 07/09/19 06:35 07/09/19 06:55 Normal Saline - IV 07/09/19 07:34 1,000 mls/hr ASDIR STA Administration Morphine Sulfate 4 mg 07/09/19 06:35 07/09/19 06:54 Morphine Injection - IVPUSH 07/09/19 06:36 4 mg ONCE ONE Administration Ondansetron HCl 4 mg 07/09/19 06:35 07/09/19 06:54 Zofran Injection IVPUSH 07/09/19 06:36 4 mg ONCE ONE Administration <Celestina Butler - Last Filed: 07/09/19 12:29> - LABORATORY CBC & Chemistry Diagram: 07/09/19 06:30 07/09/19 06:30 - Medications Given in the ED: ED Medications Discontinued Medications Generic Name Dose Route Start Last Admin Trade Name Freq PRN Reason Stop Dose Admin Morphine Sulfate 4 mg 07/09/19 06:35 07/09/19 06:54 Morphine Injection - IVPUSH 07/09/19 06:36 4 mg ONCE ONE Administration Ondansetron HCl 4 mg 07/09/19 06:35 07/09/19 06:54 Zofran Injection IVPUSH 07/09/19 06:36 4 mg ONCE ONE Administration <Fransisco Summers - Last Filed: 07/09/19 13:36> Medical Decision Making - Medical Decision Making pt signed out from Dr Hill pending ultrasound/labs in summary 43 YOF with gallstones presenting with RUQ pain Laboratory results notable for leukopenia 2.6K, with lymphocytic shift, mild LFT elevation but normal lipase and electrolytes, potassium only mildly low 3.4 will replete. UA is unremarkable negative for any infection EKG sinus rhythm at 74 bpm, nonspecific T wave abnormalities, wnl official RUQ sono +sono robledo's, stone and CBD dilation .8cm surg/GI cs. MRCP ordered, GI cs with Dr Nela Grande for surgery, cefoxitin for abx coverage. analgesia admission recent admit at [facility]. 07/09/19 08:12 07/09/19 12:29 <Celestina Butler - Last Filed: 07/09/19 12:29> - Medical Decision Making 07/09/19 07:10 Sign out received from Dr. Lim 43yo F, HTN, HLD, PUD, Hodgkin lymphoma 2001, recently diagnosed gallstones at OSH, presenting with RUQ pain, inability to tolerate PO POCUS with some CBD dilation on bedside US Initial labs sent Likely GI vs surgical consult s/p 4mg Morphine 07/09/19 09:11 - CBD 0.83, large stone, symptomatic, concerning for choledocolithiasis - AST 53, ALT 84, normal lipase - WBC 2.6 leukopenia - K 3.4, otherwise wnl - UA without UTI - Morphine 4mg re-dosed, Pt with PUD - no NSAIDs, Dilaudid allergy - itch - GI Service Consulted Plan for Admission 07/09/19 09:23 - Spoke with Dr. Luna - MRCP at [facility] with no obstructing stone - CBD 1.1cm diameter - LFTs not consistent with an obstruction - ABX coverage - Additional IVF ordered @ 125/hr, - Patient NPO, last PO was water/juice 5PM yesterday 07/08 - Surgery called for cholecystitis 07/09/19 09:58 - Spoke with Dr. Grande, will evaluate the patient - Cefazolin for ABX coverage - Additional 1L bolus ordered - Additional 10 mEq KCL ordered 07/09/19 11:47 - PMD: [facility] - MRCP ordered by GI - Surgery pending MRCP - Will admit to Med/Surg for symptomatic cholelithiasis, CBD dilation 07/09/19 11:50 - 20mg Ketamine IVPB for continued pain 07/09/19 13:02 - Cefoxitin 1g IV 07/09/19 13:35 - Serum Preg qualitative added on <Fransisco Summers - Last Filed: 07/09/19 13:36> Discharge - Discharge Information Problems reviewed: Yes - Admission Yes <Celestina Butler - Last Filed: 07/09/19 12:29> - Discharge Information Problems reviewed: Yes <Fransisco Summers - Last Filed: 07/09/19 13:36> - Discharge Information Clinical Impression/Diagnosis: Dilated cbd, acquired, Symptomatic cholelithiasis Condition: Guarded
[2019-07-09 07:19] LABS: ALBUMIN 3.2 g/dl (3.4-5.0); BILIRUBIN,TOTAL 0.3 mg/dL (0.2-1); BLOOD UREA NITROGEN 7.4 mg/dL (7-18); CALCIUM 8.4 mg/dL (8.5-10.1); CREATININE 0.5 mg/dL (0.55-1.3); POTASSIUM 3.4 mmol/L (3.5-5.1); TOT PROT 6.6 g/dl (6.4-8.2)
[2019-07-09 07:53] LABS: PH,URINE 5.5 (5.0-8.0); URINE APPEARANCE CLOUDY; URINE BILIRUBIN SMALL (NEGATIVE); URINE COLOR DK YELLOW; URINE GLUCOSE (UA) NEGATIVE (NEGATIVE); URINE KETONE TRACE (NEGATIVE); URINE NITRITE NEGATIVE (NEGATIVE); URINE PROTEIN TRACE (NEGATIVE)
[2019-07-09 07:54] LABS: URINE LEUK ESTERASE NEGATIVE (NEGATIVE)
[2019-07-09] MEDS ORDERED: METOCLOPRAMIDE HCL INJECTION 10 MG/2 ML VIAL IVPB ONE (08:28)
[2019-07-09] MEDS ORDERED: METOCLOPRAMIDE HCL INJECTION 10 MG/2 ML VIAL ONE (08:54)
[2019-07-09] MEDS ORDERED: SODIUM CHLORIDE 1,000 ML IV SCH (09:30)
[2019-07-09] MEDS ORDERED: KCL 10 MEQ IVPB 10 MEQ/100 ML INFUS.BAG IVPB SCH ×2 (09:45→10:00)
[2019-07-09] MEDS ORDERED: KCL 10 MEQ IVPB 10 MEQ/100 ML INFUS.BAG IVPB ONE (09:45)
[2019-07-09] MEDS ORDERED: CEFAZOLIN 1 GM in DEXTROSE 5%-WATER - 50 ML IVPB ONE (09:55)
[2019-07-09] MEDS ORDERED: SODIUM CHLORIDE 0.9% 500 ML INFUS.BAG IV ONE (09:55)
[2019-07-09] MEDS ORDERED: CEFAZOLIN 1 GM/D5W 1 GM/50 ML BAG ONE (09:59)
[2019-07-09 11:09] LABS: INR 0.93 (0.83-1.09)
[2019-07-09 11:12] LABS: ACTIVATED PTT 31.2 SECONDS (25.2-36.5)
[2019-07-09] MEDS ORDERED: KETAMINE HCL 500 MG/10 ML VIAL IVPB ONE (11:48)
[2019-07-09] MEDS ORDERED: KETAMINE HCL 200 MG/20 ML VIAL ONE (11:59)
[2019-07-09] MEDS ORDERED: CEFOXITIN SODIUM 1 GM in DEXTROSE 5%-WATER - 100 ML IVPB ONE ×2 (13:00→15:24)
[2019-07-09 13:23] LABS: PLATELET ESTIMATE ADEQUATE
--- NOTE | 2019-07-09 13:35 | CONSULT ---
Consult Consult Specialty:: General Surgery Referred by:: Shelby Summers Reason for Consultation:: cholecystitis - History of Present Illness Chief Complaint: RUQ pain, N/V History of Present Illness: 43yo obese F with h/o Hodgkin's lymphoma 2001, denies HTN/hyperlipidemia or current medications, h/o PUD/H. pylori last year - reports completing treatment course, but did not follow up for repeat EGD afterward, presented with 2 weeks of RUQ pain, ultimately radiating toward back and right shoulder, associated in last few days with N/V (yellow), inability to tolerate food (just water and apple juice), subjective fever/chills, and constipation/no BM last 2 days. She went to her PMD, and has been to [facility] twice, and had labs and US and MRCP for dilated cbd - these showed no choledocholithiasis 2 days ago, but tapering at ampulla, unclear reason for ductal dilation. There was also some central intrahepatic biliary dilation. She does have a moderate sized gallstone in gallbladder, also present 09/25 on US here, and + Carson's, but no clear evidence of cholecystitis. In ER, she is afebrile, with wbc 2.9, not left- shifted, dehydrated with ketones in urine, K low at 3.4, and persistent RUQ pain and nausea despite meds. Surgery was asked to assess. She is seen and examined in ER holding, with present. She is still having pain, though meds helped a little bit at first, and some nausea, though no further vomiting. She is uncomfortable with moving on the stretcher. Her PMD also gave her medicine for acid when she saw her. She had made an appointment with Dr. Monte for next month, but came to ER because the pain was still bad and getting worse. - History Source History Provided By: Patient, Medical Record Limitations to Obtaining History: No Limitations - Past Medical History Cardio/Vascular: No: HTN (pt denies), Hyperlipdemia (pt denies) Gastrointestinal: Yes: Peptic Ulcer Disease (09/11/18 EGD: H. Pylori positive) Hepatobiliary: Yes: Cholelithiasis, Other (fatty liver) ...LMP: 08/31/18 ...: No Heme/Onc: Yes: Cancer (h/o Hodgkins lymphoma 2002) Musculoskeletal: Yes: Chronic low back pain (had herniated disc, better after PT in past, occ pain) - Past Surgical History Past Surgical History: Yes: (x 3) Additional Surgical History: ovarian cystectomy (laparoscopic) - Alcohol/Substance Use Hx Alcohol Use: No History of Substance Use: reports: None - Smoking History Smoking history: Never smoked Have you smoked in the past 12 months: No - Social History Usual Living Arrangement: With Spouse ADL: Independent 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 History of Recent Travel: No Home Medications - Allergies Allergies/Adverse Reactions: Allergies Allergy/AdvReac Type Severity Reaction Status Date / Time Sulfa (Sulfonamide Allergy Severe Rash Verified 07/09/19 14:12 Antibiotics) ibuprofen Allergy Verified 07/09/19 14:12 hydromorphone [From Dilaudid] AdvReac Intermediate Itching Verified 07/09/19 14: 12 - Home Medications Home Medications: Ambulatory Orders Cholecalciferol (Vitamin D3) [Vitamin D3] 2,000 unit PO DAILY 07/31/16 Gabapentin 300 tab PO HS 09/17/18 Acetaminophen [Tylenol .Regular Strength -] 650 mg PO Q6H PRN tablet 09/19/18 Home Medications (free text): patient denies any current routine medications at home Family Medical History Family Hx Diabetes: Mother Review of Systems - Review of Systems Constitutional: reports: Chills, Fever, Loss of Appetite Eyes: reports: Other (reading glasses). denies: Recent Change in Vision HENT: reports: Difficult Swallowing, Throat Pain (several days, before n/v). denies: Nasal Congestion Neck: denies: Pain on Movement, Stiffness Cardiovascular: denies: Chest Pain, Palpitations Respiratory: denies: Cough, SOB Gastrointestinal: reports: Abdominal Pain (with hpi), Constipation (no Bm 2 days ), Nausea (with hpi), Vomiting (with hpi). denies: Diarrhea, Vomiting Blood Genitourinary: reports: Burning (couple weeks now). denies: Dysuria Musculoskeletal: reports: Back Pain (occasional; R shoulder with hpi). denies: Joint Pain, Muscle Pain Integumentary: denies: Change in Color, Rash Neurological: denies: Dizziness, Headache Physical Exam Vital Signs: Vital Signs Temperature 97.8 F 07/09/19 06:14 Pulse Rate 69 01/31/20 11:17 Respiratory Rate 07/09/19 11:17 Blood Pressure 123/72 07/09/19 11:17 O2 Sat by Pulse Oximetry (%) 97 07/09/19 11:17 Constitutional: Yes: No Distress, Calm, Obese Eyes: Yes: Conjunctiva Clear, EOM Intact. No: Sclera Icterus HENT: Yes: Atraumatic, Normocephalic Neck: Yes: Supple, Trachea Midline Cardiovascular: Yes: Regular Rate and Rhythm Respiratory: Yes: Regular, CTA Bilaterally Gastrointestinal: Yes: Normal Bowel Sounds, Soft, Abdomen, Obese, Tenderness ( RUQ, referred to upper from RLQ; no guarding or rebound but very tender), Tenderness, Epigastrium, Other (healed Pfannenstiel and laparoscopic scars) ...Rectal Exam: Yes: Deferred Renal/: Yes: CVA Tenderness - Right. No: CVA Tenderness - Left Musculoskeletal: No: Joint Stiffness, Joint Swelling Extremities: No: Cool, Cyanosis Edema: No Peripheral Pulses WNL: Yes Integumentary: No: Jaundice, Rash Neurological: Yes: Alert, Oriented Psychiatric: Yes: Alert, Oriented Labs: CBC, BMP 07/09/19 06:30 07/09/19 06:30 CMP Sodium 140 mmol/L (136-145) 07/09/19 06:30 Potassium 3.4 mmol/L (3.5-5.1) L 07/09/19 06:30 Chloride 105 mmol/L (98-107) 07/09/19 06:30 Carbon Dioxide 28 mmol/L (21-32) 07/09/19 06:30 Anion Gap 7 MMOL/L (8-16) L 07/09/19 06:30 BUN 7.4 mg/dL (7-18) 07/09/19 06:30 Creatinine 0.5 mg/dL (0.55-1.3) L 07/09/19 06:30 Est GFR (CKD-EPI)AfAm 137.39 07/09/19 06:30 Est GFR (CKD-EPI)NonAf 118.54 07/09/19 06:30 Random Glucose 116 mg/dL (74-106) H 07/09/19 06:30 Calcium 8.4 mg/dL (8.5-10.1) L 07/09/19 06:30 Total Bilirubin 0.3 mg/dL (0.2-1) 07/09/19 06:30 AST 53 U/L (15-37) H 07/09/19 06:30 ALT 84 U/L (13-61) H 07/09/19 06:30 Alkaline Phosphatase 53 U/L (45-117) 07/09/19 06:30 Total Protein 6.6 g/dl (6.4-8.2) 07/09/19 06:30 Albumin 3.2 g/dl (3.4-5.0) L 07/09/19 06:30 Lipase 120 U/L (73-393) 07/09/19 06:30 wbc 29% PMN, 50% lymphs, no bands K being repleted AST/ALT slightly up INR, PTT INR 0.93 (0.83-1.09) 07/09/19 06:30 Urine Test Results Urine Color Dk yellow 07/09/19 06:40 Urine Appearance Cloudy 07/09/19 06:40 Urine pH 5.5 (5.0-8.0) 07/09/19 06:40 Ur Specific [place] 1.030 (1.010-1.035) 07/09/19 06:40 Urine Protein Trace (NEGATIVE) 07/09/19 06:40 Urine Glucose (UA) Negative (NEGATIVE) 07/09/19 06:40 Urine Ketones Trace (NEGATIVE) H 07/09/19 06:40 Urine Blood Negative (NEGATIVE) 07/09/19 06:40 Urine Nitrite Negative (NEGATIVE) 07/09/19 06:40 Urine Bilirubin Small (NEGATIVE) 07/09/19 06:40 Ur Leukocyte Esterase Negative (NEGATIVE) 07/09/19 06:40 Imaging - Results Ultrasound: Report Reviewed, Image Reviewed (gallstone in gallbladder, cbd 8.8 mm, no wall thickening, no pericholecystic fluid, fatty liver) MRI: Report Reviewed (from [facility] 2 days ago - cbd 1.1cm, no cbd stones but tapering at the ampulla; mild intrahepatic central biliary dilation, fatty liver ) Problem List - Problems (1) Calculus of gallbladder with acute cholecystitis without obstruction Assessment/Plan: admitted to medicine NPO/IVF agree with treating as cholecystitis, given low wbc and persistent symptoms cefoxitin given pain meds prn - IV tylenol first line, would avoid morphine as possible (for effect on sphincter of Oddi) GI/DVT prophylaxis trend labs GI to see - MRCP ordered by GI - MR from 2d ago results noted, cbd now a little less dilated than 2d ago discussed with Dr. Monte and Dr. Garcia (radiology) will offer lap poss open aliyah with intraoperative cholangiogram if cbd stones or obstruction identified, would then have GI do ERCP postop Discussed with patient risks, benefits and alternatives of laparoscopic possible open cholecystectomy with possible intraoperative cholangiogram, including but not limited to bleeding, infection, injury to adjacent structures , bile leak or ductal injury, intraabdominal abscess, incisional hernia, failure to diagnose intraductal stones or clear duct, need for further procedures; alternatives include antibiotics with no surgery - risks of this include recurrence of biliary colic, cholecystitis, cholangitis, pancreatitis, sepsis and sequelae. Patient agreeable to proceed with operation. Informed consent signed for same. Code(s): K80.00 - CALCULUS OF GALLBLADDER W ACUTE CHOLECYST W/O OBSTRUCTION (2) RUQ pain Code(s): R10.11 - RIGHT UPPER QUADRANT PAIN (3) Nausea and vomiting Code(s): R11.2 - NAUSEA WITH VOMITING, UNSPECIFIED Qualifiers: Vomiting type: unspecified Vomiting Intractability: non-intractable Qualified Code(s): R11.2 - Nausea with vomiting, unspecified (4) Hypokalemia Assessment/Plan: being repleted Code(s): E87.6 - HYPOKALEMIA (5) Obesity due to excess calories Code(s): E66.09 - OTHER OBESITY DUE TO EXCESS CALORIES Qualifiers: Obesity classification: adult class 1 (BMI 30 - 34.9) Serious obesity comorbidity presence: without serious comorbidity Body mass index: unspecified BMI Qualified Code(s): E66.09 - Other obesity due to excess calories (6) Peptic ulcer Assessment/Plan: will need f/u EGD at some point to ensure healing of prior ulcer and reassess for H. pylori (positive last year, completed tx course) Code(s): K27.9 - PEPTIC ULC, SITE UNSP, UNSP AC OR CHR, W/O HEMOR OR PERF (7) H/O Hodgkin's lymphoma Code(s): Z85.71 - PERSONAL HISTORY OF HODGKIN LYMPHOMA
--- NOTE | 2019-07-09 15:01 | EKG ---
Test Reason : Blood Pressure : / mmHG Vent. Rate : 074 BPM Atrial Rate : 074 BPM P-R Int : 156 ms QRS Dur : 084 ms QT Int : 398 ms P-R-T Axes : 062 026 035 degrees QTc Int : 441 ms NORMAL SINUS RHYTHM NORMAL ECG WHEN COMPARED WITH ECG OF 17-SEP-2018 09:53, T WAVE INVERSION NO LONGER EVIDENT IN ANTERIOR LEADS Confirmed by MICHELLE BARRY MD ([id number]) on 07/09/2019 3:01:06 PM Referred By: Confirmed By:MICHELLE BARRY MD
--- NOTE | 2019-07-09 15:05 | HP ---
CHIEF COMPLAINT: abdominal pain PCP: Dr. Abdul HISTORY OF PRESENT ILLNESS: Pt. is a 43 yo. F w/ PMHx. of Hx. Hodgkin's Lymphoma (Tx. with chemotherapy, lymph node resection and radiation in 2001), PUD( reportedly had EGD and treated for H. Pylori) and cholelithiasis (was seen at [facility] 2 days ago, with sonogram and MRCP for dilated CBD). Pt. endorses nausea, non-bloody vomiting, subjective fever, no bowel movement over the last 2 days, decreased PO intake over the last 2 days, and abdominal pain that radiated to the R. shoulder. Pt. had Abdominal US here which showed large gallstone without evidence of cholecystitis. Pt. denies any chest pain, shortness of breath, recent illness, or recent antibiotic use. Multiple attempts to clarify home medications with Pharmacy unsuccesful, placed on hold for over 15 min. ER course was notable for: (1)EKG, Morphine, Zofran, Reglan, KCL, Abd. US, ketamine (2) NS x 2L, Tylenol, Ancef (3) Recent Travel: No PAST MEDICAL HISTORY: As above PAST SURGICAL HISTORY: 3 C-sections (1st elective and susbsequent because she had history of ), cyst removal from ovary, lymphnode resection Social History: Smoking: Denies Alcohol: Denies Drugs: Denies Allergies Sulfa (Sulfonamide Antibiotics) Allergy (Severe, Verified 07/09/19 14:12) Rash DIFFICULTY BREATHING,ITCHING ibuprofen Allergy (Verified 07/09/19 14:12) hydromorphone [From Dilaudid] Adverse Reaction (Intermediate, Verified 07/09/19 14:12) Itching HOME MEDICATIONS: Home Medications Medication Instructions Recorded Cholecalciferol (Vitamin D3) 2,000 unit PO DAILY 07/31/16 [Vitamin D3] Gabapentin 300 tab PO HS 09/17/18 Acetaminophen [Tylenol .Regular 650 mg PO Q6H PRN tablet 09/19/18 Strength -] REVIEW OF SYSTEMS As above PHYSICAL EXAMINATION Vital Signs - 24 hr 07/09/19 07/09/19 07/09/19 06:14 11:17 14:52 Temperature 97.8 F 98 F Pulse Rate 86 Pulse Rate [ 69 Left Radial] Respiratory 20 20 Rate Blood Pressure 146/80 Blood Pressure 123/72 [Right Arm] O2 Sat by Pulse 99 97 Oximetry (%) 07/09/19 15:04 Temperature Pulse Rate Pulse Rate [ 74 Left Radial] Respiratory 18 Rate Blood Pressure Blood Pressure 147/58 L [Right Arm] O2 Sat by Pulse 97 Oximetry (%) GENERAL: Awake, alert, obese and fully oriented, in mild distress due to pain. HEAD: Normal with no signs of trauma. EYES: Sclera anicteric, conjunctiva clear. EARS, NOSE, THROAT: Ears normal, nares patent, oropharynx clear without exudates. Moist mucous membranes. LUNGS: Breath sounds equal, clear to auscultation bilaterally. No wheezes, and no crackles. No accessory muscle use. HEART: Regular rate and rhythm, normal S1 and S2 without murmur, rub or gallop. ABDOMEN: Soft, diffuse tenderness to palpation, most prominent in RUQ and epigastrium, Carson +, some guarding, bowel sounds positive UPPER EXTREMITIES: Warm, well-perfused. No cyanosis. No clubbing. No peripheral edema. LOWER EXTREMITIES: 2+ dorsal pedal pulses, warm, well-perfused. No calf tenderness. No peripheral edema. NEUROLOGICAL: Normal speech. Gait not assessed, moved all extremities PSYCHIATRIC: Cooperative. Good eye contact. Appropriate mood and affect. SKIN: Warm, dry, normal turgor Laboratory Results - last 24 hr 07/09/19 07/09/19 07/09/19 06:30 06:30 06:30 WBC 2.6 L RBC 4.61 Hgb 13.5 Hct 40.1 D MCV 86.8 MCH 29.2 D MCHC 33.7 RDW 14.8 Plt Count 208 D MPV 9.0 Absolute Neuts (auto) 0.7 L Neutrophils % 25.7 L D Neutrophils % (Manual) 29.1 L Band Neutrophils % 0.0 Lymphocytes % 64.4 H D Lymphocytes % (Manual) 49.5 H Monocytes % 8.4 Monocytes % (Manual) 6 Eosinophils % 0.9 Eosinophils % (Manual) 0.0 Basophils % 0.6 Basophils % (Manual) 1.0 Myelocytes % (Man) 0 Promyelocytes % (Man) 0 Blast Cells % (Manual) 0 Nucleated RBC % 0 Metamyelocytes 0 Platelet Estimate Adequate PT with INR INR PTT (Actin FS) Sodium 140 Potassium 3.4 L Chloride 105 Carbon Dioxide 28 Anion Gap 7 L BUN 7.4 Creatinine 0.5 L Est GFR (CKD-EPI)AfAm 137.39 Est GFR (CKD-EPI)NonAf 118.54 Random Glucose 116 H Calcium 8.4 L Total Bilirubin 0.3 AST 53 H ALT 84 H Alkaline Phosphatase 53 Total Protein 6.6 Albumin 3.2 L Lipase 120 Serum , Qual Urine Color Urine Appearance Urine pH Ur Specific [place] Urine Protein Urine Glucose (UA) Urine Ketones Urine Blood Urine Nitrite Urine Bilirubin Urine Urobilinogen Ur Leukocyte Esterase U Pathogenic Cast Auto Urine HCG, Qual Blood Type Antibody Screen 07/09/19 07/09/19 07/09/19 06:30 06:40 06:40 WBC RBC Hgb Hct MCV MCH MCHC RDW Plt Count MPV Absolute Neuts (auto) Neutrophils % Neutrophils % (Manual) Band Neutrophils % Lymphocytes % Lymphocytes % (Manual) Monocytes % Monocytes % (Manual) Eosinophils % Eosinophils % (Manual) Basophils % Basophils % (Manual) Myelocytes % (Man) Promyelocytes % (Man) Blast Cells % (Manual) Nucleated RBC % Metamyelocytes Platelet Estimate PT with INR 11.00 INR 0.93 PTT (Actin FS) 31.2 Sodium Potassium Chloride Carbon Dioxide Anion Gap BUN Creatinine Est GFR (CKD-EPI)AfAm Est GFR (CKD-EPI)NonAf Random Glucose Calcium Total Bilirubin AST ALT Alkaline Phosphatase Total Protein Albumin Lipase Serum , Qual Urine Color Dk yellow Urine Appearance Cloudy Urine pH 5.5 Ur Specific [place] 1.030 Urine Protein Trace Urine Glucose (UA) Negative Urine Ketones Trace H Urine Blood Negative Urine Nitrite Negative Urine Bilirubin Small Urine Urobilinogen 1.0 Ur Leukocyte Esterase Negative U Pathogenic Cast Auto None Urine HCG, Qual Negative Blood Type Antibody Screen 07/09/19 07/09/19 11:16 11:16 WBC RBC Hgb Hct MCV MCH MCHC RDW Plt Count MPV Absolute Neuts (auto) Neutrophils % Neutrophils % (Manual) Band Neutrophils % Lymphocytes % Lymphocytes % (Manual) Monocytes % Monocytes % (Manual) Eosinophils % Eosinophils % (Manual) Basophils % Basophils % (Manual) Myelocytes % (Man) Promyelocytes % (Man) Blast Cells % (Manual) Nucleated RBC % Metamyelocytes Platelet Estimate PT with INR INR PTT (Actin FS) Sodium Potassium Chloride Carbon Dioxide Anion Gap BUN Creatinine Est GFR (CKD-EPI)AfAm Est GFR (CKD-EPI)NonAf Random Glucose Calcium Total Bilirubin AST ALT Alkaline Phosphatase Total Protein Albumin Lipase Serum , Qual Negative Urine Color Urine Appearance Urine pH Ur Specific [place] Urine Protein Urine Glucose (UA) Urine Ketones Urine Blood Urine Nitrite Urine Bilirubin Urine Urobilinogen Ur Leukocyte Esterase U Pathogenic Cast Auto Urine HCG, Qual Blood Type A POSITIVE Antibody Screen Negative ASSESSMENT/PLAN: Pt. is a 43 yo. F w/ PMHx. of Hx. Hodgkin's Lymphoma(Tx. with chemotherapy, lymph node resection and radiation in 2001), PUD( reportedly had EGD and treated for H. Pylori) and cholelithiasis (was seen at [facility] 2 days ago, with sonogram and MRCP for dilated CBD). #Biliary Colic likely secondary to cholelithiasis Pt. had MRCP 2 days ago Pt. for OR, consult to Dr. Grande (surgery) appreciated Consult to Dr. Rondon appreciated Protonix 40mg IV IV Tylenol for pain control, avoid Morphine as can cause sphincter of Oddi spasms NPO Zofran and Reglan for Nausea, QTc: 441 Hold PO medications Given Ancef and 1 gm Cefoxitin perioperative Abx. for low WBCs but w/o left shift, will monitor and evaluate the need for Abx. after procedure. #Hx. of HTN/HLD BP stable at this time f/u with PCP outpatient for management Unclear if Pt. was prescribed, reportedly Pt. does not take #Hx of Pain Pt. states she takes Gabapentin Rpt. attempt to reconcile medications in AM #Hx. of PUD c/w Protonix f/u outpatient with GI for EGD to evaluate treatment for H.Pylori #FEN D5-1/2NS @ 100 w/ KCL 20meq monitor electrolytes and replete as needed, received 10meq in ED, f/u Rpt. in AM NPO for procedure, can resume diet as per surgery (will likely wait until Pt. passing gas) #DVT Ppx. SCDs, avoid AC Visit type - Emergency Visit Emergency Visit: Yes ED Registration Date: 07/09/19 Care time: The patient presented to the Emergency Department on the above date and was hospitalized for further evaluation of their emergent condition. - New Patient This patient is new to me today: Yes Date on this admission: 07/09/19 - Critical Care Critical Care patient: No ATTENDING PHYSICIAN STATEMENT I saw and evaluated the patient. I reviewed the resident's note and discussed the case with the resident. I agree with the resident's findings and plan as documented. SUBJECTIVE: OBJECTIVE: ASSESSMENT AND PLAN:
[2019-07-09] MEDS ORDERED: D5-1/2NS+20 MEQ KCL - 20 MEQ/1,000 ML INFUS.BAG IV SCH (15:30)
--- NOTE | 2019-07-09 15:38 | PN ---
Teaching Attending Note Name of Resident: Willian Maxwell ATTENDING PHYSICIAN STATEMENT I reviewed the resident's note and discussed the case with the resident. patient went to OR was not able to examine the patient. Temperature 98 F 07/09/19 14:52 Pulse Rate 74 07/09/19 15:04 Respiratory Rate 18 07/09/19 15:04 Blood Pressure 147/58 L 07/09/19 15:04 O2 Sat by Pulse Oximetry (%) 97 07/09/19 15:04 WBC 2.6 K/mm3 (4.0-10.0) L 07/09/19 06:30 RBC 4.61 M/mm3 (3.60-5.2) 07/09/19 06:30 Hgb 13.5 GM/dL (10.7-15.3) 07/09/19 06:30 Hct 40.1 % (32.4-45.2) D 07/09/19 06:30 MCV 86.8 fl (80-96) 07/09/19 06:30 MCHC 33.7 g/dl (32.0-36.0) 07/09/19 06:30 RDW 14.8 % (11.6-15.6) 07/09/19 06:30 Plt Count 208 K/MM3 (134-434) D 07/09/19 06:30 MPV 9.0 fl (7.5-11.1) 07/09/19 06:30 CMP Sodium 140 mmol/L (136-145) 07/09/19 06:30 Potassium 3.4 mmol/L (3.5-5.1) L 07/09/19 06:30 Chloride 105 mmol/L (98-107) 07/09/19 06:30 Carbon Dioxide 28 mmol/L (21-32) 07/09/19 06:30 Anion Gap 7 MMOL/L (8-16) L 07/09/19 06:30 BUN 7.4 mg/dL (7-18) 07/09/19 06:30 Creatinine 0.5 mg/dL (0.55-1.3) L 07/09/19 06:30 Random Glucose 116 mg/dL (74-106) H 07/09/19 06:30 Calcium 8.4 mg/dL (8.5-10.1) L 07/09/19 06:30 Total Bilirubin 0.3 mg/dL (0.2-1) 07/09/19 06:30 AST 53 U/L (15-37) H 07/09/19 06:30 ALT 84 U/L (13-61) H 07/09/19 06:30 Alkaline Phosphatase 53 U/L (45-117) 07/09/19 06:30 Total Protein 6.6 g/dl (6.4-8.2) 07/09/19 06:30 Albumin 3.2 g/dl (3.4-5.0) L 07/09/19 06:30 Current Medications Generic Name Dose Route Start Last Admin Trade Name Freq PRN Reason Stop Dose Admin Cefoxitin Sodium 1 gm/ 100 mls @ 200 mls/hr 07/09/19 15:24 Dextrose IVPB 07/09/19 15:53 ONCE ONE Protocol Potassium Chloride/Dextrose/Sod Cl 20 meq in 1,000 mls @ 125 mls/hr 07/09/19 15:30 D5-1/2ns+20 Meq Kcl - IV ASDIR ANGELES Pantoprazole Sodium 40 mg 07/10/19 10:00 Protonix Iv IVPUSH DAILY ANGELES Home Medications Medication Instructions Recorded Cholecalciferol (Vitamin D3) 2,000 unit PO DAILY 07/31/16 [Vitamin D3] Gabapentin 300 tab PO HS 09/17/18 Acetaminophen [Tylenol .Regular 650 mg PO Q6H PRN tablet 09/19/18 Strength -] US: Large gallstone with acute cholecystitis , with positive Carson's sign ASSESSMENT AND PLAN: # Acute Cholecystitis: due to calculus of gallbladder without obstruction, on IV cefoxitin continue , NPO/IVF, pain meds on IV tylenol , lap gui, vs open aliyah with intraoperative cholangiogram, ERCP if needed. # Nausea and vomiting, npo , IVF # Hypokalemia, replet on IVF # Obesity # Peptic ulcer # H/x Hodgkin's lymphoma GI/DVT prophylaxis: Lovenox
[2019-07-09] MEDS ORDERED: fentaNYL CITRATE 250 MCG/5 ML VIAL ONE (16:19)
[2019-07-09] MEDS ORDERED: MIDAZOLAM HCL 2 MG/2 ML SINGLE DOSE VIAL ONE (16:19)
[2019-07-09] MEDS ORDERED: PROPOFOL 20 ML ONE ×3 (16:19→18:32)
[2019-07-09] MEDS ORDERED: CEFOXITIN SODIUM 1 GM IVPB ONE (16:20)
[2019-07-09] MEDS ORDERED: ROCURONIUM BROMIDE 50 MG/5 ML SYRINGE ONE (16:20)
[2019-07-09] MEDS ORDERED: LIDOCAINE HCL/PF 2% SDV 5ML VIAL ONE (16:23)
[2019-07-09] MEDS ORDERED: DEXAMETHASONE SOD PHOSPHATE 4 MG/1 ML VIAL ONE (16:23)
[2019-07-09] MEDS ORDERED: ACETAMINOPHEN 1000 MG/100 ML VIAL (NON FORMULARY) IVPB PRN (17:25)
[2019-07-09] MEDS ORDERED: EPHEDRINE SULFATE/0.9% NACL/PF 50 MG/10 ML SYRINGE NR ONE (17:33)
[2019-07-09] MEDS ORDERED: GLYCOPYRROLATE 0.2 MG/1 ML VIAL ONE ×3 (17:48→17:50)
[2019-07-09] MEDS ORDERED: BUPIVACAINE HCL/PF 0.5% (5MG/ML) 10 ML VIAL IJ ONE (18:42)
[2019-07-09] MEDS ORDERED: NEOSTIGMINE METHYLSULFATE 0.5 MG/ML - 10 ML MDV ONE (18:47)
[2019-07-09] MEDS ORDERED: ALBUTEROL SO4 0.083% IH SOL 2.5 MG/3 ML VIAL.NEB. NEB ONE ×2 (18:51→19:10)
[2019-07-09] MEDS ORDERED: ONDANSETRON 4 MG/2 ML VIAL IVPUSH PRN ×2 (19:10→19:26)
[2019-07-09] MEDS ORDERED: ACETAMINOPHEN INJECTION 100 ML IVPB ONE (19:15)
[2019-07-09] MEDS ORDERED: LACTATED RINGERS SOLUTION 1,000 ML IV SCH (19:15)
--- NOTE | 2019-07-09 19:22 | OP ---
Operative Note - Note: Operative Date: 07/09/19 Pre-Operative Diagnosis: acute cholecystitis, dilated common bile duct Operation: laparoscopic cholecystectomy with intraoperative cholangiogram Findings: elongated gallbladder, minimal edema/thin wall, single stone palpable inside; critical view identified; IOC performed with visualization of biliary tree, including dilated CBD with tapering at ampulla, contrast fills duodenum, no stones or filling defects identified in ducts; proximal CHD and bifurcation also clearly identified with contrast - performed under fluoro, still films captured Post-Operative Diagnosis: Same as Pre-op Surgeon: Sid Grande Boat Finisher: Monty Oneil Anesthesiologist/PRODUCT CRAFTSMAN: Oralia Pablo (w/[facility]) Anesthesia: General, Local (20ml 0.5% marcaine) Specimens Removed: gallbladder to pathology Estimated Blood Loss (mls): 20 Fluid Volume Replaced (mls): 1,200 (crystalloid) Operative Report Dictated: Yes
[2019-07-09] MEDS ORDERED: ALBUTEROL SO4 0.083% IH SOL 2.5 MG/3 ML VIAL.NEB. NEB PRN ×2 (19:23→20:07)
[2019-07-09] MEDS ORDERED: ACETAMINOPHEN 1000 MG/100 ML VIAL (NON FORMULARY) IVPB ONE ×2 (19:24→20:07)
[2019-07-09] MEDS ORDERED: oxyCODONE HCL 5 MG TABLET PO PRN (19:27)
[2019-07-09] MEDS ORDERED: HYDROmorphone HCl 2 MG/ML VIAL ONE (19:38)
--- NOTE | 2019-07-09 20:00 | CON.GI ---
Consult Consult Specialty:: GI Referred by:: Hospitalist Service Reason for Consultation:: abdominal pain - History of Present Illness Chief Complaint: Abdominal pain History of Present Illness: 43F admitetd through [facility] ER for evaluation of abdominal pain. Was seen at [facility] ER a few days prior. Had an MRCP that revealed chollithiasis and an 8mm CBD with tapering at the ampulla. Pain persisted. She came to [facility]. Transaminases were mildly elevated. Alkaline phosphatase and bilirubin were normal not suggesting an obstructive process. Abdominal US revealed a large gallstone and a sonographic robledo's sign was elicited. She has a history of antral ulcer on EGD 09/25 when she was admitted for abdominal pain. noted to be h. pylori positive. She could not tolerate triple therapy for h. pylori. She tolerated quadruple therapy. Stool h. pylori antigen was negative. She was scheduled to have EGD for follow-up of ehr gastric ulcer and as part of her pre gastric sleeve work-up, however, she never had the upper endoscopy performed. She was seen by surgeon Dr. Grande today who took her to the OR and performed laparoscopic cholecystectomy with intraop cholangiogram. She described the CBD as dilated and tapering at the papilla without filling defect. - Past Medical History Cardio/Vascular: No: HTN (pt denies), Hyperlipdemia (pt denies) Gastrointestinal: Yes: Peptic Ulcer Disease (09/11/18 EGD: H. Pylori positive) Hepatobiliary: Yes: Cholelithiasis, Other (fatty liver) Reproductive: Yes: Other (Ovarian cyst) ...LMP: 08/31/18 ...: No Musculoskeletal: Yes: Chronic low back pain (had herniated disc, better after PT in past, occ pain) - Past Surgical History Past Surgical History: Yes: (x 3) Additional Surgical History: ovarian cystectomy (laparoscopic) - Alcohol/Substance Use Hx Alcohol Use: No History of Substance Use: reports: None - Smoking History Smoking history: Never smoked Have you smoked in the past 12 months: No Aproximately how many cigarettes per day: 0 - Social History Usual Living Arrangement: With Spouse ADL: Independent Occupation: [employer] History of Recent Travel: No Home Medications - Allergies Allergies/Adverse Reactions: Allergies Allergy/AdvReac Type Severity Reaction Status Date / Time Sulfa (Sulfonamide Allergy Severe Rash Verified 07/09/19 14:12 Antibiotics) ibuprofen Allergy Verified 07/09/19 14:12 hydromorphone [From Dilaudid] AdvReac Intermediate Itching Verified 07/09/19 14: 12 - Home Medications Home Medications: Ambulatory Orders Cholecalciferol (Vitamin D3) [Vitamin D3] 2,000 unit PO DAILY 07/31/16 Gabapentin 300 tab PO HS 09/17/18 Acetaminophen [Tylenol .Regular Strength -] 650 mg PO Q6H PRN tablet 09/19/18 Review of Systems Unable to obtain ROS, reason: Pt.recovering in PACU - Review of Systems Gastrointestinal: reports: Abdominal Pain Physical Exam-GI Vital Signs: Vital Signs Temperature 97.6 F 07/09/19 19:04 Pulse Rate 77 07/09/19 19:20 Respiratory Rate 16 07/09/19 19:20 Blood Pressure 148/72 07/09/19 19:20 O2 Sat by Pulse Oximetry (%) 98 07/09/19 19:20 Constitutional: Yes: Moderate Distress (tearful, pointing at trochar states and complaining of abdominal pain) Eyes: No: Sclera Icterus Cardiovascular: Yes: Regular Rate and Rhythm. No: Murmur Respiratory: Yes: Diminished (at bases with poor insp effort) Gastrointestinal Inspection: Yes: Other (dressed trochar sites). No: Distention ...Auscultate: Yes: Normoactive Bowel Sounds ...Palpate: Yes: Soft, Tenderness (TTP at trochar site dressings) ...Percussion: No: Tympanitic Edema: No (No LE edema) Neurological: Yes: Alert Labs: CBC, BMP 07/09/19 06:30 07/09/19 06:30 INR, PTT INR 0.93 (0.83-1.09) 07/09/19 06:30 Hepatic Panel Total Bilirubin 0.3 mg/dL (0.2-1) 07/09/19 06:30 AST 53 U/L (15-37) H 07/09/19 06:30 ALT 84 U/L (13-61) H 07/09/19 06:30 Alkaline Phosphatase 53 U/L (45-117) 07/09/19 06:30 Albumin 3.2 g/dl (3.4-5.0) L 07/09/19 06:30 Imaging - Results Ultrasound: Report Reviewed Problem List - Problems (1) Calculus of gallbladder with acute cholecystitis without obstruction Assessment/Plan: S/P laparoscopic cholecystectomy Monitor LFTs Outpatient follow-up regarding dilated CBD and for follow-up of prior h/o PUD. H. pylori stool antigen to confirm eradication was negative. Post op care per surgery Code(s): K80.00 - CALCULUS OF GALLBLADDER W ACUTE CHOLECYST W/O OBSTRUCTION
--- NOTE | 2019-07-09 20:37 | SURG ---
Surgery Mold Holder Note Mold Holder: Monty Oneil PA-C Date of Service: 07/09/19 Diagnosis: acute cholecystitis, dilated common bile duct Procedure: laparoscopic cholecystectomy with intraoperative cholangiogram I was present for the entirety of the operative procedure. For further detail, please refer to operative report. Visit type - Case Type Case Type: ED Admission - Emergency Emergency Visit: Yes ED Registration Date: 07/09/19 Care time: The patient presented to the Emergency Department on the above date and was hospitalized for further evaluation of their emergent condition. - New patient This patient is new to me today: Yes Date on this admission: 07/09/19
[2019-07-09] MEDS: D5-1/2NS+20 MEQ KCL - 20 MEQ/1,000 ML INFUS.BAG IV SCH (21:00)
[2019-07-09] MEDS: DOCUSATE SODIUM 100 MG CAPSULE (FP) PO SCH (21:36)
[2019-07-09] MEDS ORDERED: DOCUSATE SODIUM 100 MG CAPSULE (FP) PO SCH (22:00)
[2019-07-09] MEDS: oxyCODONE HCL 5 MG TABLET PO PRN (22:28)
[2019-07-10] MEDS: oxyCODONE HCL 5 MG TABLET PO PRN ×4 (02:41→21:00)
[2019-07-10] MEDS ORDERED: ACETAMINOPHEN 325 MG TABLET (FP) PO SCH (06:00)
[2019-07-10] MEDS: ACETAMINOPHEN 325 MG TABLET (FP) PO SCH ×5 (06:04→20:59)
[2019-07-10] MEDS: DOCUSATE SODIUM 100 MG CAPSULE (FP) PO SCH ×2 (09:11→21:01)
[2019-07-10] MEDS: PANTOPRAZOLE SODIUM 40 MG VIAL IVPUSH SCH (09:12)
[2019-07-10] MEDS ORDERED: PANTOPRAZOLE SODIUM 40 MG VIAL IVPUSH SCH (10:00)
[2019-07-10 10:54] LABS: BASO % 0.2 % (0-2.0); HEMATOCRIT 35.9 % (32.4-45.2); LYMPH % 23.5 % (8-40); MCHC 33.3 g/dl (32.0-36.0); MEAN CELL VOLUME 87.1 fl (80-96); MONO % 6.5 % (3.8-10.2); NEUT % 69.8 % (42.8-82.8); PLATELET COUNT 192 K/MM3 (134-434); RBC 4.13 M/mm3 (3.60-5.2); RDW 14.5 % (11.6-15.6); WHITE BLOOD COUNT 5.4 K/mm3 (4.0-10.0)
[2019-07-10 11:28] LABS: ALBUMIN 2.9 g/dl (3.4-5.0); BILIRUBIN,TOTAL 0.8 mg/dL (0.2-1); BLOOD UREA NITROGEN 5.7 mg/dL (7-18); CALCIUM 7.8 mg/dL (8.5-10.1); CREATININE 0.5 mg/dL (0.55-1.3); MAGNESIUM 2.2 mg/dL (1.8-2.4); PHOSPHOROUS 2.4 mg/dL (2.5-4.9); POTASSIUM 3.6 mmol/L (3.5-5.1); TOT PROT 5.8 g/dl (6.4-8.2)
[2019-07-10] MEDS ORDERED: ALBUTEROL SO4 0.083% IH SOL 2.5 MG/3 ML VIAL.NEB. NEB PRN (12:20)
[2019-07-10] MEDS: ONDANSETRON 4 MG/2 ML VIAL IVPUSH PRN (12:25)
--- NOTE | 2019-07-10 12:36 | PN ---
Progress Note, Physician History of Present Illness: s/p lap aliyah with IOC for acute cholecystitis with dilated CBD no ductal filling defects observed, distal tapering of dilated CBD at ampulla single stone palpable in gallbladder after removal Seen and examined in bed Pt c/o incisional pain, but RUQ pain is better; she also has some nausea, but has been up and ambulated, voiding ok, passing gas but no BM yet. Tolerated some clears, jello for lunch, but not much appetite for food yet. No actual vomiting. She reports the albuterol neb helps with her breathing. Feeling pain with deep breathing and a little shoulder pain as well. The pain medication is only helping a little bit, not very much. - Current Medication List Current Medications: Active Medications Acetaminophen (Tylenol -) 650 mg PO Q4HWA [facility] Last Admin: 07/10/19 09:22 Dose: 650 mg Albuterol Sulfate (Ventolin 0.083% Nebulizer Soln -) 1 amp NEB Q4H PRN PRN Reason: SHORT OF BREATH/WHEEZING Docusate Sodium (Colace -) 100 mg PO BID [facility] Last Admin: 07/10/19 09:11 Dose: 100 mg Potassium Chloride/Dextrose/Sod Cl (D5-1/2ns+20 Meq Kcl -) 20 meq in 1,000 mls @ 125 mls/hr IV ASDIR [facility] Last Admin: 07/09/19 21:00 Dose: 0 mls Ondansetron HCl (Zofran Injection) 4 mg IVPUSH Q6H PRN PRN Reason: NAUSEA Last Admin: 07/10/19 12:25 Dose: 4 mg Oxycodone HCl (Roxicodone -) 10 mg PO Q6H PRN PRN Reason: Pain Level 6-10 BREAKTHROUGH Pantoprazole Sodium (Protonix Iv) 40 mg IVPUSH DAILY [facility] Last Admin: 07/10/19 09:12 Dose: 40 mg - Objective Vital Signs: Vital Signs Temperature 98.4 F 07/10/19 06:04 Pulse Rate 76 07/10/19 06:04 Respiratory Rate 18 07/10/19 11:00 Blood Pressure 138/72 07/10/19 06:04 O2 Sat by Pulse Oximetry (%) 96 07/10/19 11:00 Constitutional: Yes: No Distress, Calm, Obese Eyes: Yes: Conjunctiva Clear, EOM Intact. No: Sclera Icterus HENT: Yes: Atraumatic, Normocephalic Gastrointestinal: Yes: Soft, Abdomen, Obese, Distention (some), Tenderness ( mainly incisional, still some RUQ and less LUQ, no rebound/guarding), Tenderness , Epigastrium Extremities: No: Cool, Cyanosis Integumentary: Yes: Incision (x5 dressed). No: Jaundice, Rash Wound/Incision: Yes: Steri Strips (under dressings), Dressing Dry and Intact (x5 ). No: Dressing Removed Neurological: Yes: Alert, Oriented Labs: CBC, BMP 07/10/19 09:20 07/10/19 09:20 CMP Sodium 139 mmol/L (136-145) 07/10/19 09:20 Potassium 3.6 mmol/L (3.5-5.1) 07/10/19 09:20 Chloride 108 mmol/L (98-107) H 07/10/19 09:20 Carbon Dioxide 25 mmol/L (21-32) 07/10/19 09:20 Anion Gap 7 MMOL/L (8-16) L 07/10/19 09:20 BUN 5.7 mg/dL (7-18) L 07/10/19 09:20 Creatinine 0.5 mg/dL (0.55-1.3) L 07/10/19 09:20 Est GFR (CKD-EPI)AfAm 137.39 07/10/19 09:20 Est GFR (CKD-EPI)NonAf 118.54 07/10/19 09:20 Random Glucose 126 mg/dL (74-106) H 07/10/19 09:20 Calcium 7.8 mg/dL (8.5-10.1) L 07/10/19 09:20 Phosphorus 2.4 mg/dL (2.5-4.9) L 07/10/19 09:20 Magnesium 2.2 mg/dL (1.8-2.4) 07/10/19 09:20 Total Bilirubin 0.8 mg/dL (0.2-1) 07/10/19 09:20 AST 78 U/L (15-37) H 07/10/19 09:20 ALT 95 U/L (13-61) H 07/10/19 09:20 Alkaline Phosphatase 48 U/L (45-117) 07/10/19 09:20 Creatine Kinase 198 U/L (26-192) H 07/09/19 22:25 Creatine Kinase Index 1.0 % (0.0-5.0) 07/09/19 22:25 CK-MB (CK-2) 2.0 ng/mL (0.5-3.6) 07/09/19 22:25 Troponin I < 0.02 ng/ml (0.00-0.05) 07/09/19 22:25 Total Protein 5.8 g/dl (6.4-8.2) L 07/10/19 09:20 Albumin 2.9 g/dl (3.4-5.0) L 07/10/19 09:20 Lipase 120 U/L (73-393) 07/09/19 06:30 Serum , Qual Negative 07/09/19 11:16 K improved wbc more normal, better differential - ....Imaging Other: Other (await formal cholangiogram report - intraop images showed no cbd filling defects, dilated duct with smooth distal tapering to ampulla, + filling of duodenum, chd and bifurcation visualized) Problem List - Problems (1) Calculus of gallbladder with acute cholecystitis without obstruction Assessment/Plan: POD 1 s/p laparoscopic cholecystectomy with intraoperative cholangiogram incisional pain better than RUQ pain, but control could be improved will change oxycodone prn to 10mg (take with a little po); continue scheduled tylenol zofran now narcotics could contribute to nausea, but avoiding NSAIDs because of PUD will change nebs prn to q4H encourage OOB/ambulation/sitting up using IS GI/DVT prophylaxis labs reviewed - ALT/AST slightly up, expected postop from liver cauterization GI consult noted encouraged to try some solid po as she is able IVF on board until she has taken more po/full meal would reevaluate for possible d/c home later today, if eating, ambulating and pain is better controlled instructions in d/c plan discussed with Dr. Rojas Code(s): K80.00 - CALCULUS OF GALLBLADDER W ACUTE CHOLECYST W/O OBSTRUCTION (2) RUQ pain Assessment/Plan: improved, now incisional mostly Code(s): R10.11 - RIGHT UPPER QUADRANT PAIN (3) Nausea and vomiting Code(s): R11.2 - NAUSEA WITH VOMITING, UNSPECIFIED Qualifiers: Vomiting type: unspecified Vomiting Intractability: non-intractable Qualified Code(s): R11.2 - Nausea with vomiting, unspecified (4) Hypokalemia Assessment/Plan: improved Code(s): E87.6 - HYPOKALEMIA (5) Obesity due to excess calories Code(s): E66.09 - OTHER OBESITY DUE TO EXCESS CALORIES Qualifiers: Obesity classification: adult class 1 (BMI 30 - 34.9) Serious obesity comorbidity presence: without serious comorbidity Body mass index: unspecified BMI Qualified Code(s): E66.09 - Other obesity due to excess calories (6) Peptic ulcer Assessment/Plan: on PPI f/u with GI/Dr. Monte after d/c GI following Code(s): K27.9 - PEPTIC ULC, SITE UNSP, UNSP AC OR CHR, W/O HEMOR OR PERF (7) H/O Hodgkin's lymphoma Code(s): Z85.71 - PERSONAL HISTORY OF HODGKIN LYMPHOMA
--- NOTE | 2019-07-10 14:39 | PN.GI ---
GI Progress Note Subjective: RUQ pain improved Still with pain at trochar sites, better than yesterday - Objective Vital Signs: Vital Signs Temperature 98.4 F 07/10/19 06:04 Pulse Rate 76 07/10/19 06:04 Respiratory Rate 18 07/10/19 11:00 Blood Pressure 138/72 07/10/19 06:04 O2 Sat by Pulse Oximetry (%) 96 07/10/19 11:00 Constitutional: Calm Eyes: No: Sclera Icterus Cardiovascular: Yes: Regular Rate and Rhythm Respiratory: Yes: CTA Bilaterally Gastrointestinal Inspection: Yes: Other (Dressed trochar sites). No: Distention ...Palpate: Yes: Soft, Tenderness (at trochar sites, particualrly umbilical site ) ...Percussion: No: Tympanitic Edema: No (No LE edema) Neurological: Yes: Alert Labs: CBC, BMP 07/10/19 09:20 07/10/19 09:20 INR, PTT INR 0.93 (0.83-1.09) 07/09/19 06:30 Problem List - Problems (1) Calculus of gallbladder with acute cholecystitis without obstruction Assessment/Plan: S/P Lap Ирина POD 1 Improved pain complaints from yesterday Has a baseline mild transaminitis Post op care per surgery Monitor LFTS Has f/u appointment with me in office this month Code(s): K80.00 - CALCULUS OF GALLBLADDER W ACUTE CHOLECYST W/O OBSTRUCTION
--- NOTE | 2019-07-10 15:50 | EKG ---
Test Reason : Blood Pressure : / mmHG Vent. Rate : 075 BPM Atrial Rate : 075 BPM P-R Int : 160 ms QRS Dur : 086 ms QT Int : 406 ms P-R-T Axes : 060 029 043 degrees QTc Int : 453 ms NORMAL SINUS RHYTHM WITH SINUS ARRHYTHMIA LEFT ATRIAL ENLARGEMENT NONSPECIFIC ST ABNORMALITY BORDERLINE ECG WHEN COMPARED WITH ECG OF 09-JUL-2019 07:15, NO SIGNIFICANT CHANGE WAS FOUND Confirmed by MD JESSIE, MANOHAR ([id number]) on 07/10/2019 3:50:26 PM Referred By: Confirmed By:MANOHAR ROMAN MD
[2019-07-10] MEDS ORDERED: ACETAMINOPHEN 1000 MG/100 ML VIAL (NON FORMULARY) IVPB ONE (16:49)
--- NOTE | 2019-07-10 16:50 | PN ---
Progress Note (short form) - Note Progress Note: Patient is c/o having abdominal pain s/p surgery Vital Signs Temperature 98.6 F 07/10/19 16:29 Pulse Rate 76 07/10/19 16:29 Respiratory Rate 20 07/10/19 16:29 Blood Pressure 138/94 07/10/19 16:29 O2 Sat by Pulse Oximetry (%) 96 07/10/19 15:00 GENERAL: The patient is awake, alert, and fully oriented, in no acute distress. HEAD: Normal with no signs of trauma. EYES: PERRL, extraocular movements intact, sclera anicteric, conjunctiva clear. ENT: Ears normal, oropharynx clear without exudates, moist mucous membranes. NECK: Trachea midline, full range of motion, supple. LUNGS: Breath sounds equal, clear to auscultation bilaterally, no wheezes, no crackles, no accessory muscle use. HEART: Regular rate and rhythm, S1, S2 without murmur, rub or gallop. ABDOMEN: Soft, POD#1 lap aliyah. + tenderness due to incisional pain, + bowel sounds, no guarding, no rebound, no hepatosplenomegaly, no masses. EXTREMITIES: 2+ pulses, warm, well-perfused, no edema. NEUROLOGICAL: Cranial nerves II through XII grossly intact. Normal speech, gait not observed. PSYCH: Normal mood, normal affect. SKIN: Warm, dry, normal turgor, no rashes or lesions noted CBCD WBC 5.4 K/mm3 (4.0-10.0) 07/10/19 09:20 RBC 4.13 M/mm3 (3.60-5.2) 07/10/19 09:20 Hgb 12.0 GM/dL (10.7-15.3) 07/10/19 09:20 Hct 35.9 % (32.4-45.2) 07/10/19 09:20 MCV 87.1 fl (80-96) 07/10/19 09:20 MCHC 33.3 g/dl (32.0-36.0) 07/10/19 09:20 RDW 14.5 % (11.6-15.6) 07/10/19 09:20 Plt Count 192 K/MM3 (134-434) 07/10/19 09:20 MPV 9.0 fl (7.5-11.1) 07/10/19 09:20 CMP Sodium 139 mmol/L (136-145) 07/10/19 09:20 Potassium 3.6 mmol/L (3.5-5.1) 07/10/19 09:20 Chloride 108 mmol/L (98-107) H 07/10/19 09:20 Carbon Dioxide 25 mmol/L (21-32) 07/10/19 09:20 Anion Gap 7 MMOL/L (8-16) L 07/10/19 09:20 BUN 5.7 mg/dL (7-18) L 07/10/19 09:20 Creatinine 0.5 mg/dL (0.55-1.3) L 07/10/19 09:20 Random Glucose 126 mg/dL (74-106) H 07/10/19 09:20 Calcium 7.8 mg/dL (8.5-10.1) L 07/10/19 09:20 Total Bilirubin 0.8 mg/dL (0.2-1) 07/10/19 09:20 AST 78 U/L (15-37) H 07/10/19 09:20 ALT 95 U/L (13-61) H 07/10/19 09:20 Alkaline Phosphatase 48 U/L (45-117) 07/10/19 09:20 Total Protein 5.8 g/dl (6.4-8.2) L 07/10/19 09:20 Albumin 2.9 g/dl (3.4-5.0) L 07/10/19 09:20 CARDIAC ENZYMES Creatine Kinase 198 U/L (26-192) H 07/09/19 22:25 Troponin I < 0.02 ng/ml (0.00-0.05) 07/09/19 22:25 Current Medications Generic Name Dose Route Start Last Admin Trade Name Freq PRN Reason Stop Dose Admin Acetaminophen 650 mg 07/10/19 06:00 07/10/19 15:13 Tylenol - PO 650 mg Q4HWA ANGELES Administration Acetaminophen 1,000 mg 07/10/19 16:49 Ofirmev Injection - IVPB 07/10/19 16:50 ONCE ONE Albuterol Sulfate 1 amp 07/10/19 12:20 Ventolin 0.083% Nebulizer Soln - NEB Q4H PRN SHORT OF BREATH/WHEEZING Docusate Sodium 100 mg 07/09/19 22:00 07/10/19 09:11 Colace - PO 100 mg BID ANGELES Administration Potassium Chloride/Dextrose/Sod Cl 20 meq in 1,000 mls @ 125 mls/hr 07/09/19 20:07 07/09/19 21:00 D5-1/2ns+20 Meq Kcl - IV 0 mls ASDIR ANGELES Administration Ondansetron HCl 4 mg 07/09/19 20:07 07/10/19 12:25 Zofran Injection IVPUSH 4 mg Q6H PRN Administration NAUSEA Oxycodone HCl 10 mg 07/10/19 12:21 07/10/19 14:35 Roxicodone - PO 10 mg Q6H PRN Administration Pain Level 6-10 BREAKTHROUGH Pantoprazole Sodium 40 mg 07/10/19 10:00 07/10/19 09:12 Protonix Iv IVPUSH 40 mg DAILY ANGELES Administration Home Medications Medication Instructions Recorded Cholecalciferol (Vitamin D3) 2,000 unit PO DAILY 07/31/16 [Vitamin D3] Gabapentin 300 tab PO HS 09/17/18 Acetaminophen [Tylenol .Regular 650 mg PO Q6H PRN tablet 09/19/18 Strength -] Assessment and plan: Patient is a 43yof with no significant PMhx admitted for having abdominal pain. Patient was at [facility] ER a few days ago and had an MRCP which revealed chollithiasis with 8mm CBD with tapering at the ampulla. POD#1 laparoscopic cholecystectomy with intraoperative cholangiogram due to Acute Cholecystitis: due to calculus of gallbladder without obstruction, s/p IV cefoxitin IVF, advance diet, pain meds and further surgical care and follow up per cooper # Hypokalemia, repleted # Obesity low fat diet # hx of Peptic ulcer # H/x Hodgkin's lymphoma GI/DVT prophylaxis: Lovenox Visit type - Emergency Visit Emergency Visit: Yes ED Registration Date: 07/09/19 Care time: The patient presented to the Emergency Department on the above date and was hospitalized for further evaluation of their emergent condition. - New Patient This patient is new to me today: No - Critical Care Critical Care patient: No - Discharge Referral Referred to [facility] Med P.C[facility] No
[2019-07-10] MEDS: D5-1/2NS+20 MEQ KCL - 20 MEQ/1,000 ML INFUS.BAG IV SCH (20:41)
[2019-07-11] MEDS: oxyCODONE HCL 5 MG TABLET PO PRN ×2 (03:02→10:38)
[2019-07-11] MEDS: ACETAMINOPHEN 325 MG TABLET (FP) PO SCH ×4 (06:12→17:40)
[2019-07-11] MEDS: PANTOPRAZOLE SODIUM 40 MG VIAL IVPUSH SCH (09:15)
[2019-07-11] MEDS: DOCUSATE SODIUM 100 MG CAPSULE (FP) PO SCH (09:15)
[2019-07-11] MEDS: ONDANSETRON 4 MG/2 ML VIAL IVPUSH PRN ×2 (09:15→16:50)
[2019-07-11 13:18] VITALS: BMI 31.4
[2019-07-11] MEDS ORDERED: BISACODYL 5 MG TABLET.DR (FP) PO ONE (13:34)
--- NOTE | 2019-07-11 13:43 | PN ---
Progress Note, Physician History of Present Illness: s/p lap aliyah with IOC for acute cholecystitis with dilated CBD no ductal filling defects observed, distal tapering of dilated CBD at ampulla single stone palpable in gallbladder after removal Seen and examined in bed with present. Pt c/o incisional pain, but better than yesterday. Controlled reasonably with Tylenol and oxycodone. She had a little more for lunch, tolerating food but not much appetite yet. Throat feels dry. Voiding well, no BM yet. Ambulated in card, using IS with good effort. - Current Medication List Current Medications: Active Medications Acetaminophen (Tylenol -) 650 mg PO Q4HWA [facility] Last Admin: 07/11/19 10:39 Dose: 650 mg Albuterol Sulfate (Ventolin 0.083% Nebulizer Soln -) 1 amp NEB Q4H PRN PRN Reason: SHORT OF BREATH/WHEEZING Bisacodyl (Dulcolax -) 10 mg PO ONCE ONE Stop: 07/11/19 13:35 Docusate Sodium (Colace -) 100 mg PO BID [facility] Last Admin: 07/11/19 09:15 Dose: 100 mg Influenza Virus Vaccine Quadrival (Flulaval Quad [id number]) 60 mcg IM .ONCE ONE Stop: 07/11/19 14:31 Ondansetron HCl (Zofran Injection) 4 mg IVPUSH Q6H PRN PRN Reason: NAUSEA Last Admin: 07/11/19 09:15 Dose: 4 mg Oxycodone HCl (Roxicodone -) 10 mg PO Q6H PRN PRN Reason: Pain Level 6-10 BREAKTHROUGH Last Admin: 07/11/19 10:38 Dose: 10 mg Pantoprazole Sodium (Protonix Iv) 40 mg IVPUSH DAILY [facility] Last Admin: 07/11/19 09:15 Dose: 40 mg - Objective Vital Signs: Vital Signs Temperature 98.7 F 07/11/19 11:00 Pulse Rate 81 07/11/19 11:00 Respiratory Rate 19 07/11/19 11:00 Blood Pressure 147/82 07/11/19 11:00 O2 Sat by Pulse Oximetry (%) 98 07/11/19 10:00 Constitutional: Yes: No Distress, Calm, Obese Eyes: Yes: Conjunctiva Clear, EOM Intact. No: Sclera Icterus HENT: Yes: Atraumatic, Normocephalic Gastrointestinal: Yes: Soft, Abdomen, Obese, Tenderness (RUQ > RLQ > LUQ - all less than yesterday; no rebound or guarding; incisional tenderness, mainly umbilical), Tenderness, Epigastrium Extremities: No: Cool, Cyanosis Integumentary: Yes: Incision (x5 dressed). No: Jaundice, Rash Wound/Incision: Yes: Steri Strips (left open to air, c/d/i), Dressing Dry and Intact (x5), Dressing Removed (x5) Neurological: Yes: Alert, Oriented Labs: no new labs Problem List - Problems (1) Calculus of gallbladder with acute cholecystitis without obstruction Assessment/Plan: POD 2 s/p laparoscopic cholecystectomy with intraoperative cholangiogram incisional pain and overall tenderness improving with po meds narcotics could contribute to nausea, but avoiding NSAIDs because of PUD no BM yet - will give one dose dulcolax now continue stool softeners at home with Percocet Rx advised laxative prn to make sure she does not get constipated tolerating po, eating lightly for now d/c IVF encourage OOB/ambulation/sitting up using IS GI/DVT prophylaxis ok for d/c home f/u with surgery 3 wks f/u with PMD, GI as well instructions in d/c plan discussed with Dr. Wiggins, medical team Code(s): K80.00 - CALCULUS OF GALLBLADDER W ACUTE CHOLECYST W/O OBSTRUCTION (2) RUQ pain Assessment/Plan: improved further incisional more umbilical Code(s): R10.11 - RIGHT UPPER QUADRANT PAIN (3) Nausea and vomiting Assessment/Plan: occ nausea but no vomiting Code(s): R11.2 - NAUSEA WITH VOMITING, UNSPECIFIED Qualifiers: Vomiting type: unspecified Vomiting Intractability: non-intractable Qualified Code(s): R11.2 - Nausea with vomiting, unspecified (4) Peptic ulcer Assessment/Plan: on PPI - defer to GI whether to continue at home f/u with GI/Dr. Monte after d/c GI following Code(s): K27.9 - PEPTIC ULC, SITE UNSP, UNSP AC OR CHR, W/O HEMOR OR PERF (5) Obesity due to excess calories Code(s): E66.09 - OTHER OBESITY DUE TO EXCESS CALORIES Qualifiers: Obesity classification: adult class 1 (BMI 30 - 34.9) Serious obesity comorbidity presence: without serious comorbidity Body mass index: unspecified BMI Qualified Code(s): E66.09 - Other obesity due to excess calories (6) H/O Hodgkin's lymphoma Code(s): Z85.71 - PERSONAL HISTORY OF HODGKIN LYMPHOMA
[2019-07-11] MEDS ORDERED: FLU VACCINE QUAD 60 MCG/0.5 ML (MDV 19-20) IM ONE (14:30)
[2019-07-11 15:58] VITALS: BP 159/60; PULSE 82; TEMP 97.8
--- NOTE | 2019-07-11 16:13 | PN ---
Teaching Attending Note Name of Resident: Britton Hernandez ATTENDING PHYSICIAN STATEMENT I saw and evaluated the patient. I reviewed the resident's note and discussed the case with the resident. I agree with the resident's findings and plan as documented. SUBJECTIVE: Patient is feeling better with no acute distress. Vital Signs Temperature 97.8 F 07/11/19 15:54 Pulse Rate 82 07/11/19 15:54 Respiratory Rate 20 07/11/19 15:54 Blood Pressure 159/60 07/11/19 15:54 O2 Sat by Pulse Oximetry (%) 98 07/11/19 10:00 GENERAL: The patient is awake, alert, and fully oriented, in no acute distress. HEAD: Normal with no signs of trauma. EYES: PERRL, extraocular movements intact, sclera anicteric, conjunctiva clear. ENT: Ears normal, oropharynx clear without exudates, moist mucous membranes. NECK: Trachea midline, full range of motion, supple. LUNGS: Breath sounds equal, clear to auscultation bilaterally, no wheezes, no crackles, no accessory muscle use. HEART: Regular rate and rhythm, S1, S2 without murmur, rub or gallop. ABDOMEN: Soft, POD#2 lap aliyah. + tenderness due to incisional pain, + bowel sounds, no guarding, no rebound, no hepatosplenomegaly, no masses. EXTREMITIES: 2+ pulses, warm, well-perfused, no edema. NEUROLOGICAL: Cranial nerves II through XII grossly intact. Normal speech, gait not observed. PSYCH: Normal mood, normal affect. SKIN: Warm, dry, normal turgor, no rashes or lesions noted CBCD WBC 5.4 K/mm3 (4.0-10.0) 07/10/19 09:20 RBC 4.13 M/mm3 (3.60-5.2) 07/10/19 09:20 Hgb 12.0 GM/dL (10.7-15.3) 07/10/19 09:20 Hct 35.9 % (32.4-45.2) 07/10/19 09:20 MCV 87.1 fl (80-96) 07/10/19 09:20 MCHC 33.3 g/dl (32.0-36.0) 07/10/19 09:20 RDW 14.5 % (11.6-15.6) 07/10/19 09:20 Plt Count 192 K/MM3 (134-434) 07/10/19 09:20 MPV 9.0 fl (7.5-11.1) 07/10/19 09:20 CMP Sodium 139 mmol/L (136-145) 07/10/19 09:20 Potassium 3.6 mmol/L (3.5-5.1) 07/10/19 09:20 Chloride 108 mmol/L (98-107) H 07/10/19 09:20 Carbon Dioxide 25 mmol/L (21-32) 07/10/19 09:20 Anion Gap 7 MMOL/L (8-16) L 07/10/19 09:20 BUN 5.7 mg/dL (7-18) L 07/10/19 09:20 Creatinine 0.5 mg/dL (0.55-1.3) L 07/10/19 09:20 Random Glucose 126 mg/dL (74-106) H 07/10/19 09:20 Calcium 7.8 mg/dL (8.5-10.1) L 07/10/19 09:20 Total Bilirubin 0.8 mg/dL (0.2-1) 07/10/19 09:20 AST 78 U/L (15-37) H 07/10/19 09:20 ALT 95 U/L (13-61) H 07/10/19 09:20 Alkaline Phosphatase 48 U/L (45-117) 07/10/19 09:20 Total Protein 5.8 g/dl (6.4-8.2) L 07/10/19 09:20 Albumin 2.9 g/dl (3.4-5.0) L 07/10/19 09:20 CARDIAC ENZYMES Creatine Kinase 198 U/L (26-192) H 07/09/19 22:25 Troponin I < 0.02 ng/ml (0.00-0.05) 07/09/19 22:25 Current Medications Generic Name Dose Route Start Last Admin Trade Name Freq PRN Reason Stop Dose Admin Acetaminophen 650 mg 07/10/19 06:00 07/11/19 14:56 Tylenol - PO 650 mg Q4HWA ANGELES Administration Albuterol Sulfate 1 amp 07/10/19 12:20 Ventolin 0.083% Nebulizer Soln - NEB Q4H PRN SHORT OF BREATH/WHEEZING Docusate Sodium 100 mg 07/09/19 22:00 07/11/19 09:15 Colace - PO 100 mg BID ANGELES Administration Ondansetron HCl 4 mg 07/09/19 20:07 07/11/19 09:15 Zofran Injection IVPUSH 4 mg Q6H PRN Administration NAUSEA Oxycodone HCl 10 mg 07/10/19 12:21 07/11/19 10:38 Roxicodone - PO 10 mg Q6H PRN Administration Pain Level 6-10 BREAKTHROUGH Pantoprazole Sodium 40 mg 07/10/19 10:00 07/11/19 09:15 Protonix Iv IVPUSH 40 mg DAILY ANGELES Administration Home Medications Medication Instructions Recorded Cholecalciferol (Vitamin D3) 2,000 unit PO DAILY 07/31/16 [Vitamin D3] Gabapentin 300 tab PO HS 09/17/18 Acetaminophen [Tylenol .Regular 650 mg PO Q6H PRN tablet 09/19/18 Strength -] Assessment and plan: Patient is a 43yof with no significant PMhx admitted for having abdominal pain. Patient was at [facility] ER a few days ago and had an MRCP which revealed chollithiasis with 8mm CBD with tapering at the ampulla. POD#2 laparoscopic cholecystectomy with intraoperative cholangiogram due to Acute Cholecystitis: due to calculus of gallbladder without obstruction, s/p IV cefoxitin , tolerating diet, pain meds and further surgical care and follow up per surgery , instructions was placed by the surgeon at the discharge package. # Hypokalemia, repleted # Obesity low fat diet # hx of Peptic ulcer # H/x Hodgkin's lymphoma dc patient home Home Medications Medication Instructions Recorded Cholecalciferol (Vitamin D3) 2,000 unit PO DAILY 07/31/16 [Vitamin D3] Gabapentin 300 tab PO HS 09/17/18 Acetaminophen [Tylenol .Regular 650 mg PO Q6H PRN tablet 09/19/18 Strength -] Docusate Sodium [Colace -] 100 mg PO BID 30 Days #60 capsule 07/11/19 Pantoprazole Sodium [Protonix] 40 mg PO DAILY 10 Days #10 07/11/19 tablet.
--- NOTE | 2019-07-11 16:27 | DS ---
Physical Exam: SUBJECTIVE: Patient seen and examined at bedside. There were no acute events overnight. This AM she offers no new complaints. She reports her some soreness ( discomfort/expected) at laproscopic surgical sites. OBJECTIVE: Vital Signs Period Temp Pulse Resp BP Sys/Powell Pulse Ox Last 24 Hr 97.8 F-98.7 F 73-82 19-20 118-159/8-94 98-98 PHYSICAL EXAM Constitutional: Yes: No Distress, Calm, Obese Eyes: Yes: Conjunctiva Clear, EOM Intact. No: Sclera Icterus HENT: Yes: Atraumatic, Normocephalic Gastrointestinal: Yes: Soft, Abdomen, Obese, Tenderness (RUQ > RLQ > LUQ - all less than yesterday; no rebound or guarding; incisional tenderness, mainly umbilical), Tenderness, Epigastrium Extremities: No: Cool, Cyanosis Integumentary: Yes: Incision (x5 dressed). No: Jaundice, Rash Wound/Incision: Yes: Steri Strips (left open to air, c/d/i), Dressing Dry and Intact (x5), Dressing Removed (x5) Neurological: Yes: Alert, Oriented LABS CBC,CMP WBC 5.4 K/mm3 (4.0-10.0) 07/10/19 09:20 RBC 4.13 M/mm3 (3.60-5.2) 07/10/19 09:20 Hgb 12.0 GM/dL (10.7-15.3) 07/10/19 09:20 Hct 35.9 % (32.4-45.2) 07/10/19 09:20 MCV 87.1 fl (80-96) 07/10/19 09:20 MCH 29.0 pg (25.7-33.7) 07/10/19 09:20 MCHC 33.3 g/dl (32.0-36.0) 07/10/19 09:20 RDW 14.5 % (11.6-15.6) 07/10/19 09:20 Plt Count 192 K/MM3 (134-434) 07/10/19 09:20 MPV 9.0 fl (7.5-11.1) 07/10/19 09:20 Absolute Neuts (auto) 3.8 K/mm3 (1.5-8.0) 07/10/19 09:20 Neutrophils % 69.8 % (42.8-82.8) D 07/10/19 09:20 Neutrophils % (Manual) 29.1 % (42.8-82.8) L 07/09/19 06:30 Band Neutrophils % 0.0 % 07/09/19 06:30 Lymphocytes % 23.5 % (8-40) D 07/10/19 09:20 Lymphocytes % (Manual) 49.5 % (8-40) H 07/09/19 06:30 Monocytes % 6.5 % (3.8-10.2) 07/10/19 09:20 Monocytes % (Manual) 6 % (3.8-10.2) 07/09/19 06:30 Eosinophils % 0.0 % (0-4.5) D 07/10/19 09:20 Eosinophils % (Manual) 0.0 % (0-4.5) 07/09/19 06:30 Basophils % 0.2 % (0-2.0) 07/10/19 09:20 Basophils % (Manual) 1.0 % (0-2.0) 07/09/19 06:30 Myelocytes % (Man) 0 % (0-2) 07/09/19 06:30 Promyelocytes % (Man) 0 % (0-2) 07/09/19 06:30 Blast Cells % (Manual) 0 % (0-0) 07/09/19 06:30 Nucleated RBC % 0 % (0-0) 07/10/19 09:20 Metamyelocytes 0 % (0-2) 07/09/19 06:30 Platelet Estimate Adequate 07/09/19 06:30 Sodium 139 mmol/L (136-145) 07/10/19 09:20 Potassium 3.6 mmol/L (3.5-5.1) 07/10/19 09:20 Chloride 108 mmol/L (98-107) H 07/10/19 09:20 Carbon Dioxide 25 mmol/L (21-32) 07/10/19 09:20 Anion Gap 7 MMOL/L (8-16) L 07/10/19 09:20 BUN 5.7 mg/dL (7-18) L 07/10/19 09:20 Creatinine 0.5 mg/dL (0.55-1.3) L 07/10/19 09:20 Est GFR (CKD-EPI)AfAm 137.39 07/10/19 09:20 Est GFR (CKD-EPI)NonAf 118.54 07/10/19 09:20 Random Glucose 126 mg/dL (74-106) H 07/10/19 09:20 Calcium 7.8 mg/dL (8.5-10.1) L 07/10/19 09:20 Phosphorus 2.4 mg/dL (2.5-4.9) L 07/10/19 09:20 Magnesium 2.2 mg/dL (1.8-2.4) 07/10/19 09:20 Total Bilirubin 0.8 mg/dL (0.2-1) 07/10/19 09:20 AST 78 U/L (15-37) H 07/10/19 09:20 ALT 95 U/L (13-61) H 07/10/19 09:20 Alkaline Phosphatase 48 U/L (45-117) 07/10/19 09:20 Creatine Kinase 198 U/L (26-192) H 07/09/19 22:25 Creatine Kinase Index 1.0 % (0.0-5.0) 07/09/19 22:25 CK-MB (CK-2) 2.0 ng/mL (0.5-3.6) 07/09/19 22:25 Troponin I < 0.02 ng/ml (0.00-0.05) 07/09/19 22:25 Total Protein 5.8 g/dl (6.4-8.2) L 07/10/19 09:20 Albumin 2.9 g/dl (3.4-5.0) L 07/10/19 09:20 Lipase 120 U/L (73-393) 07/09/19 06:30 Serum , Qual Negative 07/09/19 11:16 HOSPITAL COURSE: Date of Admission:07/09/19 43 y/o female with no reported PMH c/o abdominal pain admitted for laparoscopic cholecystectomy POD 2. Prev to admission she underwent MRCP at at [facility] ER, which demonstrated chollithiasis with 8mm CBD. Her procedure here at [facility] included intraoperative cholangiogram due to acute cholecystitis 2/2 calculus of gallbladder without obstruction. She tolerated the sx well and was dc to home. Date of Discharge: 07/11/19 Minutes to complete discharge: 40 Discharge Summary Problems reviewed: Yes Reason For Visit: ABD PAIN,VOMITING Current Active Problems Obesity due to excess calories (Chronic) Condition: Improved - Instructions Diet, Activity, Other Instructions: You were admitted to the hospital for evaluation of abdominal pain. You were evaluated by the General Surgeon and underwent removal of your gallbladder. You are stable for discharge home. Continue taking your home medications as directed. Take Pantoprazole 40mg daily for 10 days Take stool softener Colace 100mg in the morning and at night. Follow up with your primary care physician within one- two days after discharge. A referral has been provided. Follow up with General Surgeon Dr. Grande within two weeks of discharge. A referral has been provided Follow up with Gastroenterolgist Dr. Monte within two weeks of discharge. A referral has been provided Return to the nearest Emergency Department if you experience worsening symptoms , subjective fevers, chills, shortness of breath, chest pain, palpitations, abdominal pain, nausea, vomiting, any trauma or loss of consciousness. Please see General Surgery discharge instructions below: Postoperative instructions: You had a laparoscopic cholecystectomy with intraoperative cholangiogram on 07/09/[address] Sid Grande of [facility]. Activity: Resume your usual activities gradually, but no heavy exertion or lifting more than 10-15 pounds for 1 month. Remove dressings 48 hours after surgery; sticky tapes underneath will fall off by themselves. You may shower daily starting then, just pat the incision areas dry. No bath or swimming until skin incisions have healed. Eat lightly at first, but advance to your usual diet as tolerated. Pain: For pain, you may use Tylenol (acetaminophen) 1-2 pills every 4-6 hours as needed. If you are prescribed a Tylenol/narcotic combination for severe pain , use it instead of plain Tylenol as needed and switch back when your pain starts decreasing. Do not take more than 4000mg of acetaminophen in a day. Take medications as prescribed or indicated on the labeling. Follow-up: Call Dr. Grande's office at [phone] to make your postop appointment (Friday in approximately 3 weeks after surgery). Clinic is held in the Diagnostic Center on the first floor of [facility]. Call the office if you have: * increasing pain not responsive to pain medication * fever of 101F or higher * vomiting * unusual or increasing bleeding or drainage from wounds * increasing redness or swelling at wound sites Also, see your primary medical doctor within 1-2 weeks. You will also need to follow up with Dr. Fred Monte, Gastroenterology , as planned. Referrals: Baltazar Monte DO [Staff Physician] - 2 Weeks Sid Grande MD [Staff Physician] - 1 Week Marquita Abdul MD [Non Staff, Medical] - 1 Week Disposition: HOME - Home Medications Comprehensive Discharge Medication List: Ambulatory Orders Cholecalciferol (Vitamin D3) [Vitamin D3] 2,000 unit PO DAILY 07/31/16 Gabapentin 300 tab PO HS 09/17/18 Acetaminophen [Tylenol .Regular Strength -] 650 mg PO Q6H PRN tablet 09/19/18 Docusate Sodium [Colace -] 100 mg PO BID 30 Days #60 capsule 07/11/19 Pantoprazole Sodium [Protonix] 40 mg PO DAILY 10 Days #10 tablet. 07/11/19 This patient is new to me today: Yes Date on this admission: 08/01/19 Emergency Visit: No Critical Care patient: No - Discharge Referral Referred to [facility] Med [facility].C[facility] No ATTENDING PHYSICIAN STATEMENT I saw and evaluated the patient. I reviewed the resident's note and discussed the case with the resident. I agree with the resident's findings and plan as documented. SUBJECTIVE: OBJECTIVE: ASSESSMENT AND PLAN:
--- NOTE | 2019-07-12 16:55 | OP ---
DATE OF OPERATION: 07/09/2019 PREOPERATIVE DIAGNOSIS: Acute cholecystitis with dilated common bile duct. POSTOPERATIVE DIAGNOSIS: Acute cholecystitis with dilated common bile duct. PROCEDURE: Laparoscopic cholecystectomy with intraoperative cholangiogram. SURGEON: Sid Grande MD METAL BENDING MACHINE OPERATOR: MARTHA Padilla ANESTHESIA: General endotracheal and local, 20 mL of 0.5% Marcaine. ESTIMATED BLOOD LOSS: 20 mL FLUIDS: Crystalloid 1200 mL. SPECIMEN: Gallbladder to Pathology. FINDINGS: An elongated gallbladder with minimal edema and a rather thin wall. Single stone was palpable inside. The critical view was identified. Intraoperative cholangiogram was performed with visualization of the biliary tree, including a dilated common bile duct with smooth tapering at the ampulla. Contrast filled the duodenum. There were no stones or filling defects identified in the ducts, although the spiral valves in the cystic duct appeared to be visible. The proximal common hepatic duct and bifurcation were also clearly identified with contrast. IOC was done under fluoroscopy, and still films were captured. DISPOSITION: Stable and extubated to PACU. INDICATIONS FOR PROCEDURE: The patient is a 43-year-old, obese female with a history of Hodgkin's lymphoma in 2001 and a history of peptic ulcer disease, positive for H. pylori last year, who completed her treatment course, but had not followed up yet with repeat EGD, who presented with 2 weeks of right upper quadrant pain radiating toward her back and right shoulder. This was associated in the latter few days with nausea and vomiting and inability to tolerate food, subjective fever and chills, and constipation. She had been to her primary care doctor and another hospital on 2 separate occasions and had labs done, as well as an ultrasound and MRCP done for dilated common bile duct, which, according to the outside report, showed no choledocholithiasis 2 days prior to her presentation at our ER, but there was tapering at the ampulla and some central intrahepatic biliary dilation. She had a moderate-size gallstone in the gallbladder and a positive Carson sign, but no clear evidence of cholecystitis. However, white count was 2.9; she was somewhat dehydrated, with mild hypokalemia which was repleted, and persistent right upper quadrant pain and nausea despite medication. She was admitted to Medicine, treated for acute cholecystitis by giving IV fluids and starting IV antibiotics. Exam was consistent with significant tenderness in the right upper quadrant and epigastric areas, and her AST and ALT were also mildly elevated. Risks, benefits, and alternatives of laparoscopic, possible open cholecystectomy with possible intraoperative cholangiogram were discussed with the patient including, but not limited to, bleeding, infection, injury to adjacent structures, bile leak or ductal injury, intraabdominal abscess, incisional hernia, failure to diagnose intraductal stones or clear the duct, and need for further procedures. Alternatives were also discussed including antibiotics with no surgery and risks of recurrence of biliary colic, cholecystitis, cholangitis, pancreatitis, sepsis, and their sequelae. The patient agreed to proceed with the operation and signed informed consent for the same. She is now brought to the OR for this procedure. OPERATIVE TECHNIQUE: Patient was brought to the operating room and laid supine on the operating table. Sequential compression devices were applied to bilateral lower extremities, and appropriate antibiotics were used preoperatively. After induction and intubation by Anesthesia, the patient's abdomen was prepped and draped in sterile fashion. A small supraumbilical midline incision was made with a scalpel and carried into subcutaneous tissues with electrocautery, until the abdominal wall fascia was identified, scored, and elevated with Steph clamps. The peritoneum was entered bluntly with the tip of a clamp, and a fingertip inserted to ensure entry into the abdominal cavity and the absence of any underlying adhesions. A stay suture of 0 Vicryl was placed in the fascia in figure-of-8 fashion for later closure, and a Willa trocar introduced directly into the abdominal cavity, which was secured with the balloon. The abdomen was insufflated with carbon dioxide. The patient was placed in reverse Trendelenburg position, and the laparoscope inserted to inspect the abdominal cavity. The gallbladder was visible at the edge of the liver bed. A 5-mm port was placed under direct vision in the subxiphoid area, and 2 additional 5- mm ports in the right upper quadrant, through which a grasper was used on the right to grasp the fundus of the gallbladder and elevate it over the liver edge. A second grasper was also used to grasp the infundibulum and retract it laterally. A [place] dissector was used through the operative port to begin dissecting at the base of the gallbladder to identify the cystic duct. As the cystic duct was identified and isolated, the cystic artery was also identified medially and, at this point, carefully avoided. The cystic duct was isolated from the surrounding peritoneum with the [place] dissector and clipped with one 5-mm clip right up against the gallbladder wall, in preparation for the intraoperative cholangiogram. A small opening was then made in the cystic duct just below the clip with EndoShears, and the Arrow percutaneous cholangiogram catheter kit was utilized. A small matt was made in the skin in the right upper quadrant to allow the catheter trocar with the obturator in it to enter directly through the skin. The cholangiogram catheter was then fed through the trocar, and a Maryland dissector inside the abdomen used to position this into the cystic duct. Another 5-mm clip was then used to hold the catheter in place in the cystic duct. A small bit of contrast was injected just to make sure that the catheter would flow okay with the clip in place, and then, the graspers were removed from the trocars, the patient returned to neutral position so that the C-arm for fluoroscopy could be brought in. Fluoroscopic shots were taken to ensure appropriate positioning of the C-arm for the cholangiogram, and once we could identify that we were able to see the necessary structures, the contrast was injected steadily for a total of approximately 7 mL of contrast using fluoroscopy. Still pictures were also captured to visualize filling of the cystic duct, filling of the common bile duct, and passage of the contrast into the duodenum. The common bile duct was noted to be dilated but with smooth tapering down to the ampulla. There was still good passage of the contrast into the intestine. Contrast was also noted to backfill the common hepatic duct, and the bifurcation of the left and right bile ducts was also visualized. There were no filling defects noted in the common bile duct, although the pattern of contrast in the cystic duct suggested the presence of the spiral valves. Once we had captured some still films, and the cholangiogram was noted to be negative for any choledocholithiasis, the C-arm was withdrawn, and the laparoscope reinserted. The patient was again placed in reverse Trendelenburg position. The graspers were used to re-grasp the gallbladder, and the clip holding the cholangiogram catheter in place first removed with the [place] dissector and retrieved out the port site. Another 5-mm clip was then carefully placed just below the choledochotomy as the catheter was withdrawn; a total of 2 clips were placed below, that is proximal to, the opening in the cystic duct. The EndoShears were used to complete transection of the cystic duct where it was open between the clips. The cystic artery was then also isolated, 2 clips placed proximally and one distally, and it was also divided with endoscissors. The hook cautery was then used to take the gallbladder off of the liver bed. At one point more proximally, there was a small opening made in the gallbladder with some bile spilled. This was later suctioned with the suction staff radiologist, which was also used to suction a small bit of blood and fluid from the field. Once the gallbladder had been completely from the liver, it was placed in an Endo Catch bag and retrieved out the umbilical port site. The Willa trocar and pneumoperitoneum were re-established and the operative field inspected for hemostasis. There was still some bleeding at the liver bed, and it was cauterized with the hook cautery. A piece of Surgicel was introduced through a port, and placed over the area, which no longer appeared to be bleeding. This was left in situ. The suction staff radiologist was used to aspirate all blood, fluid and clots from the area. All 5-mm ports were removed under direct vision, and the Willa trocar and camera also withdrawn, as was the cholangiogram trocar. The patient was returned to neutral position. The abdomen was exsufflated of carbon dioxide, and the stay suture at the umbilicus tied to close the fascia there. Hemostasis in the port sites was achieved with electrocautery where necessary. Local anesthetic was infiltrated into all port sites, and skin was closed with 4 -0 Vicryl subcuticular sutures, including a running at the umbilicus. Benzoin and Steri-Strips were placed over all 4 incisions. Benzoin and a small piece of a Steri-Strip was also placed to close the puncture site where the cholangiogram trocar had been, without any sutures. Dressings of gauze and Tegaderm were placed over all 5 sites. Counts were correct at the end of the procedure. The patient was then awakened and extubated by Anesthesia, moved back to her stretcher, and taken to the recovery room in stable condition, having tolerated the procedure well. MARTHA Oneil was an essential planning assistant throughout the procedure, including facilitating entry into the abdominal cavity, retraction and manipulation of the gallbladder throughout the case, assisting with exposure and placement of the cholangiogram catheter, as well as helping with retrieval of the gallbladder, local infiltration and closure of the port sites. Stephanie [id number] MTDNicci
--- NOTE | 2019-07-13 16:41 | PATH ---
Surgical Pathology Report Patient Name: LINA JUAREZ Med. Rec. #: [id number] /Age/Gender: 1975 (Age: 43) / F Account: [id number] Location: [address] [place] [address] Taken: 07/09/2019 Received: 07/12/2019 Reported: 07/13/2019 Physicians: Sid Grande M.D. Specimen(s) Received GALLBLADDER Clinical History Cholecystitis-acute, dilated common bile duct Final Diagnosis GALLBLADDER, CHOLECYSTECTOMY: CHRONIC CHOLECYSTITIS, CHOLESTEROLOSIS, AND CHOLELITHIASIS. Electronically Signed Juliette Michaud M.D. Gross Description Received in formalin, labeled "gallbladder," is a 8.8 x 2.7 x 2.4 cm. gallbladder with a 0.2 cm. in length portion of cystic duct attached. The outer surface is walters green with a focal defect and varies from smooth to shaggy. The lumen contains green, tenacious bile is well a single green, ovoid cholelith measuring 2.1 cm in greatest dimension. The mucosa is green and velvety. The wall of the gallbladder measures 0.1 cm. in thickness. Computer Assembler sections are submitted in one cassette. 07/12/2019 [facility]07/12/2019
== END 2019-07-11 18:40 | disposition home or self-care (01) | DRG 263 ==
LOC: JER 05:54 → JERBED 10:00 → J6S 18:45
PROVIDERS: ADMIT Internal Medicine; ATTEND Internal Medicine
PROC: 0FT44ZZ Resection of Gallbladder, Percutaneous Endoscopic Approach (ICD-10-PCS; principal; 2019-07-09 15:00)
PROC: BF10YZZ Fluoroscopy of Bile Ducts using Other Contrast (ICD-10-PCS; 2019-07-09 15:00)
DX: K80.00 Calculus of gallbladder with acute cholecystitis without obstruction (principal); E78.00 Pure hypercholesterolemia, unspecified; I10 Essential (primary) hypertension; K76.0 Fatty (change of) liver, not elsewhere classified; M54.5 Low back pain; R10.11 Right upper quadrant pain; D72.819 Decreased white blood cell count, unspecified; R11.2 Nausea with vomiting, unspecified; E66.9 Obesity, unspecified; Z68.31 Body mass index [BMI] 31.0-31.9, adult; E87.6 Hypokalemia; Z87.11 Personal history of peptic ulcer disease; Z85.71 Personal history of Hodgkin lymphoma
CPT/HCPCS: 36415; 71045-TC-FY; 76000-TC-FY; 76705-TC; 80053; 81003; 82550; 82553; 83690; 83735; 84100; 84484; 84703; 85025; 85610; 85730; 86850; 86900; 86901; 88304-TC; 93005; 93010; 94010; 94760; 99285-25; J0131; J7030; Q2036

== ENCOUNTER 2019-08-10 09:12 | Day surgery (SDC) | payer OTHER ==
[2019-08-09 13:36] VITALS: BMI 32.5
[2019-08-10 10:43] VITALS: TEMP 98.4
[2019-08-10 11:20] VITALS: BP 134/96; PULSE 67
--- NOTE | 2019-08-11 14:47 | PATH ---
Surgical Pathology Report Patient Name: LINA JUAREZ [facility]. Rec. #: [id number] /Age/Gender: 1975 (Age: 43) / F Account: [id number] Location: [facility] Taken: 08/10/2019 Received: 08/10/2019 Reported: 08/11/2019 Physicians: Fred Monte D.O. Specimen(s) Received A: PYLORUS B: BODY OF STOMACH Clinical History Nausea, vomiting Postoperative diagnosis: Gastritis Final Diagnosis A. PYLORUS, BIOPSY: GASTRIC MUCOSA WITH CHRONIC GASTRITIS AND INTESTINAL METAPLASIA. IMMUNOSTAIN FOR H. PYLORI IS NEGATIVE. NEGATIVE FOR DYSPLASIA. B. BODY OF STOMACH, BIOPSY: GASTRIC MUCOSA WITH CHRONIC GASTRITIS. IMMUNOSTAIN FOR H. PYLORI IS NEGATIVE. NEGATIVE FOR INTESTINAL METAPLASIA. Electronically Signed Juliette Michaud M.D. Gross Description A. Received in formalin, labeled "biopsy pylorus" are 2 walters, irregular portions of soft tissue measuring 0.1 and 0.5 cm. in greatest dimension. The specimens are submitted in toto in one cassette. B. Received in formalin, labeled "biopsy body of stomach" are 3 walters, irregular portions of soft tissue ranging from 0.1-0.4 cm. in greatest dimension. The specimens are submitted in toto in one cassette. 08/10/2019 [facility]08/10/2019
== END 2019-08-10 11:21 | disposition home or self-care (01) ==
LOC: JASU-ENDO 09:12
PROVIDERS: ATTEND Internal Medicine Gastroenterology
PROC: 0DB78ZX Excision of Stomach, Pylorus, Via Natural or Artificial Opening Endoscopic, Diagnostic (ICD-10-PCS; 2019-08-10)
PROC: 0DB68ZX Excision of Stomach, Via Natural or Artificial Opening Endoscopic, Diagnostic (ICD-10-PCS; principal; 2019-08-10 09:30)
DX: R11.0 Nausea (principal)
CPT/HCPCS: 88305-TC; 88342-TC

== ENCOUNTER 2020-06-10 17:44 | Emergency (ER) | payer OTHER ==
[2020-06-10 18:05] VITALS: BP 125/75; PULSE 91; TEMP 97.8; BMI 32.3
[2020-06-10] MEDS ORDERED: morphine CARPU-JECT 4 MG/1 ML DISP.SYRIN IVPUSH ONE ×2 (19:33→21:01)
[2020-06-10] MEDS ORDERED: SODIUM CHLORIDE 0.9% 500 ML INFUS.BAG IV ONE (19:33)
[2020-06-10] MEDS ORDERED: ONDANSETRON 4 MG/2 ML VIAL IVPUSH ONE ×2 (19:34→22:43)
[2020-06-10] MEDS ORDERED: morphine SULFATE 4 MG/ML VIAL ONE ×2 (19:48→21:03)
[2020-06-10] MEDS ORDERED: ONDANSETRON 4 MG/2 ML VIAL ONE (19:48)
[2020-06-10 20:16] LABS: BASO % 0.7 % (0-2.0); EOS % 1.4 % (0-4.5); HEMATOCRIT 39.1 % (32.4-45.2); HEMOGLOBIN 12.9 GM/dL (10.7-15.3); LYMPH % 33.4 % (8-40); MCH 28.9 pg (25.7-33.7); MCHC 32.9 g/dl (32.0-36.0); MEAN CELL VOLUME 87.9 fl (80-96); MEAN PLT VOLUME 9.8 fl (7.5-11.1); MONO % 6.3 % (3.8-10.2); NEUT % 58.2 % (42.8-82.8); PLATELET COUNT 255 K/MM3 (134-434); RBC 4.45 M/mm3 (3.60-5.2); RDW 13.7 % (11.6-15.6); WHITE BLOOD COUNT 6.4 K/mm3 (4.0-10.0)
[2020-06-10 20:29] LABS: EPI CELLS >36 /uL (0-25.1); HYALINE CASTS 5 /uL (0-3.1); PH,URINE 6.5 (5.0-8.0); URINE APPEARANCE CLEAR; URINE BACTERIA 515 /uL (0-1359); URINE BILIRUBIN NEGATIVE (NEGATIVE); URINE COLOR YELLOW; URINE GLUCOSE (UA) NEGATIVE (NEGATIVE); URINE KETONE NEGATIVE (NEGATIVE); URINE LEUK ESTERASE 1+ (NEGATIVE); URINE NITRITE NEGATIVE (NEGATIVE); URINE PROTEIN TRACE (NEGATIVE); URINE RBC 11 /uL (0-23.9); URINE WBC 61 /uL (0-25.8)
[2020-06-10 20:39] LABS: CHLORIDE 106 mmol/L (98-107); SODIUM 138 mmol/L (136-145)
[2020-06-10 20:41] LABS: CALCIUM 8.6 mg/dL (8.5-10.1)
[2020-06-10 20:42] LABS: ALBUMIN 3.6 g/dl (3.4-5.0); ANION GAP 8 MMOL/L (8-16); BLOOD UREA NITROGEN 13.4 mg/dL (7-18); CO2 25 mmol/L (21-32); GLUCOSE,RANDOM 136 mg/dL (74-106); LIPASE 172 U/L (73-393)
[2020-06-10 20:45] LABS: CREATININE 0.6 mg/dL (0.55-1.3); SGOT/AST 32 U/L (15-37); SGPT/ALT 65 U/L (13-61)
[2020-06-10 20:47] LABS: BILIRUBIN,TOTAL 0.3 mg/dL (0.2-1); TOT PROT 6.9 g/dl (6.4-8.2)
[2020-06-10 20:48] LABS: ALK PHOS 66 U/L (45-117)
[2020-06-10] MEDS ORDERED: CEFTRIAXONE 1 GM in DEXTROSE 5%-WATER - 50 ML IVPB ONE (22:11)
[2020-06-10] MEDS ORDERED: KETOROLAC TROMETHAMINE 30 MG/1 ML VIAL IVPUSH ONE (22:11)
[2020-06-10] MEDS ORDERED: KETOROLAC TROMETHAMINE 30 MG/1 ML VIAL ONE (22:23)
[2020-06-10] MEDS ORDERED: CEFTRIAXONE 1 GM/50 ML BAG ONE (22:23)
[2020-06-10] MEDS ORDERED: predniSONE 20 MG TABLET (UD) PO ONE (22:43)
[2020-06-10] MEDS ORDERED: FAMOTIDINE 20 MG TABLET PO ONE (22:43)
[2020-06-10] MEDS ORDERED: predniSONE 20 MG TABLET (UD) ONE (22:47)
[2020-06-10] MEDS ORDERED: FAMOTIDINE 20 MG TABLET ONE (22:47)
== END 2020-06-11 00:05 | disposition home or self-care (01) ==
LOC: JER 17:44
PROC: 3E033NZ Introduction of Analgesics, Hypnotics, Sedatives into Peripheral Vein, Percutaneous Approach (ICD-10-PCS; principal; 2020-06-10)
PROC: 3E033GC Introduction of Other Therapeutic Substance into Peripheral Vein, Percutaneous Approach (ICD-10-PCS; 2020-06-10)
DX: R10.9 Unspecified abdominal pain (principal)
CPT/HCPCS: 36415; 74177-TC; 80053; 81003; 83690; 84702; 85025; 99285-25; Q9967

== ENCOUNTER 2020-07-21 19:20 | Emergency (ER) | payer OTHER ==
[2020-07-21 19:30] VITALS: BMI 35.5
[2020-07-21] MEDS ORDERED: ACETAMINOPHEN 1000 MG/100 ML VIAL (NON FORMULARY) IVPB ONE (20:57)
[2020-07-21] MEDS ORDERED: LACTATED RINGERS SOLUTION 1000 ML INFUS.BAG IV ONE (20:58)
[2020-07-21] MEDS ORDERED: ACETAMINOPHEN 500 MG TABLET (FP) PO ONE (20:59)
[2020-07-21] MEDS ORDERED: ACETAMINOPHEN 325 MG TABLET (FP) ONE (21:10)
[2020-07-21] MEDS ORDERED: morphine CARPU-JECT 4 MG/1 ML DISP.SYRIN IVPUSH ONE ×2 (21:52→23:06)
[2020-07-21] MEDS ORDERED: morphine SULFATE 4 MG/ML VIAL ONE ×2 (22:34→23:04)
[2020-07-21 22:50] LABS: BASO % 0.7 % (0-2.0); EOS % 0.8 % (0-4.5); HEMATOCRIT 37.8 % (32.4-45.2); HEMOGLOBIN 12.6 GM/dL (10.7-15.3); LYMPH % 33.5 % (8-40); MCH 29.5 pg (25.7-33.7); MCHC 33.4 g/dl (32.0-36.0); MEAN CELL VOLUME 88.5 fl (80-96); MEAN PLT VOLUME 10.1 fl (7.5-11.1); MONO % 4.6 % (3.8-10.2); NEUT % 60.4 % (42.8-82.8); PLATELET COUNT 252 K/MM3 (134-434); RBC 4.27 M/mm3 (3.60-5.2); RDW 13.8 % (11.6-15.6); WHITE BLOOD COUNT 5.8 K/mm3 (4.0-10.0)
[2020-07-21 22:52] LABS: INR 0.92 (0.83-1.09); PROTHROMBIN TIME (PATIENT) 11.3 SEC (9.7-13.0)
[2020-07-21 22:55] LABS: ACTIVATED PTT 22.1 SECONDS (25.2-36.5)
[2020-07-21 23:03] LABS: ALBUMIN 3.4 g/dl (3.4-5.0); BLOOD UREA NITROGEN 12.3 mg/dL (7-18); CALCIUM 9.1 mg/dL (8.5-10.1); CO2 22 mmol/L (21-32); GLUCOSE,RANDOM 212 mg/dL (74-106)
[2020-07-21 23:04] LABS: ANION GAP 11 MMOL/L (8-16); CHLORIDE 108 mmol/L (98-107); POTASSIUM 3.9 mmol/L (3.5-5.1); SODIUM 141 mmol/L (136-145)
[2020-07-21 23:07] LABS: CREATININE 0.6 mg/dL (0.55-1.3); SGOT/AST 23 U/L (15-37); SGPT/ALT 41 U/L (13-61)
[2020-07-21 23:09] LABS: BILIRUBIN,TOTAL 0.3 mg/dL (0.2-1); TOT PROT 6.7 g/dl (6.4-8.2)
[2020-07-21 23:10] LABS: ALK PHOS 63 U/L (45-117)
[2020-07-22] MEDS ORDERED: ONDANSETRON *ODT* 4 MG TABLET SL ONE (01:03)
[2020-07-22] MEDS ORDERED: ONDANSETRON 4 MG/2 ML VIAL ONE (01:19)
[2020-07-22] MEDS ORDERED: KETOROLAC TROMETHAMINE 30 MG/1 ML VIAL IVPUSH ONE (02:28)
[2020-07-22] MEDS ORDERED: KETOROLAC TROMETHAMINE 30 MG/1 ML VIAL ONE (02:39)
[2020-07-22 04:53] VITALS: BP 141/73; PULSE 86; TEMP 97.9
[2020-07-22 07:15] LABS: URINE APPEARANCE CLEAR; URINE BILIRUBIN NEGATIVE (NEGATIVE); URINE COLOR YELLOW; URINE GLUCOSE (UA) NEGATIVE (NEGATIVE)
[2020-07-22 07:16] LABS: URINE KETONE NEGATIVE (NEGATIVE); URINE PROTEIN NEGATIVE (NEGATIVE)
[2020-07-22 07:17] LABS: URINE LEUK ESTERASE NEGATIVE (NEGATIVE); URINE NITRITE NEGATIVE (NEGATIVE); URINE UROBILINOGEN 0.2 mg/dL (0.2-1.0)
== END 2020-07-22 04:54 | disposition home or self-care (01) ==
LOC: JER 19:20
PROC: 3E033GC Introduction of Other Therapeutic Substance into Peripheral Vein, Percutaneous Approach (ICD-10-PCS; principal; 2020-07-21)
PROC: 3E033GC Introduction of Other Therapeutic Substance into Peripheral Vein, Percutaneous Approach (ICD-10-PCS; 2020-07-22)
DX: R07.9 Chest pain, unspecified (principal)
CPT/HCPCS: 36415; 71046-TC-FY; 71275-TC; 74174-TC; 80053; 81003; 84484; 84703; 85025; 85379; 85610; 85730; 93005; 93010; 99285-25; Q0162; Q9967

== ENCOUNTER 2021-05-04 18:13 | Emergency (ER) | payer OTHER ==
[2021-05-04 18:31] VITALS: BMI 35.6
[2021-05-04] MEDS ORDERED: morphine CARPU-JECT 4 MG/1 ML DISP.SYRIN IVPUSH ONE (19:45)
[2021-05-04] MEDS ORDERED: ACETAMINOPHEN 1000 MG/100 ML VIAL IVPB ONE (19:45)
[2021-05-04] MEDS ORDERED: SODIUM CHLORIDE 0.9% 500 ML INFUS.BAG IV ONE (19:45)
[2021-05-04] MEDS ORDERED: ACETAMINOPHEN INJECTION 100 ML IVPB ONE (20:12)
[2021-05-04] MEDS ORDERED: morphine SULFATE 4 MG/ML VIAL ONE (20:12)
[2021-05-04 21:08] LABS: EOS % 0.7 % (0-4.5); HEMATOCRIT 39.3 % (32.4-45.2); HEMOGLOBIN 13.2 GM/dL (10.7-15.3); LYMPH % 44.8 % (8-40); MCH 29.1 pg (25.7-33.7); MCHC 33.6 g/dl (32.0-36.0); MEAN CELL VOLUME 86.5 fl (80-96); MEAN PLT VOLUME 8.6 fl (7.5-11.1); MONO % 7.2 % (3.8-10.2); NEUT % 46.3 % (42.8-82.8); PLATELET COUNT 262 10^3/uL (134-434); RBC 4.54 M/mm3 (3.60-5.2); RDW 13.7 % (11.6-15.6); WHITE BLOOD COUNT 5.6 K/mm3 (4.0-10.0)
[2021-05-04 21:09] LABS: URINE APPEARANCE CLEAR; URINE BILIRUBIN NEGATIVE (NEGATIVE); URINE COLOR YELLOW; URINE GLUCOSE (UA) NEGATIVE (NEGATIVE); URINE KETONE NEGATIVE (NEGATIVE); URINE LEUK ESTERASE NEGATIVE (NEGATIVE); URINE NITRITE NEGATIVE (NEGATIVE); URINE PROTEIN NEGATIVE (NEGATIVE); URINE UROBILINOGEN 0.2 mg/dL (0.2-1.0)
[2021-05-04 21:16] LABS: INR 0.99 (0.83-1.09); PROTHROMBIN TIME (PATIENT) 11.6 SEC (9.7-13.0)
[2021-05-04 21:18] LABS: ACTIVATED PTT 28.7 SECONDS (25.2-36.5)
[2021-05-04] MEDS ORDERED: diazePAM 5 MG TABLET PO ONE (21:44)
[2021-05-04] MEDS ORDERED: KETOROLAC TROMETHAMINE 15 MG/ML VIAL IVPUSH ONE (21:44)
[2021-05-04 21:46] LABS: CALCIUM 9.2 mg/dL (8.5-10.1)
[2021-05-04 21:47] LABS: ALBUMIN 3.7 g/dl (3.4-5.0); BLOOD UREA NITROGEN 11.9 mg/dL (7-18)
[2021-05-04 21:50] LABS: CREATININE 0.5 mg/dL (0.55-1.3)
[2021-05-04] MEDS ORDERED: diazePAM 5 MG TABLET ONE (21:50)
[2021-05-04] MEDS ORDERED: KETOROLAC TROMETHAMINE 15 MG/ML VIAL ONE (21:50)
[2021-05-04 21:52] LABS: TOT PROT 7.1 g/dl (6.4-8.2)
[2021-05-04 22:16] LABS: BILIRUBIN,TOTAL 0.5 mg/dL (0.2-1)
[2021-05-05] MEDS ORDERED: traMADol HCL 50 MG TABLET PO ONE ×2 (01:09→01:26)
[2021-05-05] MEDS ORDERED: traMADol HCL 50 MG TABLET ONE (01:20)
[2021-05-05 01:27] VITALS: BP 106/67; PULSE 71; TEMP 97.8
== END 2021-05-05 01:28 | disposition home or self-care (01) ==
LOC: JER 18:13
PROC: 3E0333Z Introduction of Anti-inflammatory into Peripheral Vein, Percutaneous Approach (ICD-10-PCS; principal; 2021-05-04)
PROC: 3E0333Z Introduction of Anti-inflammatory into Peripheral Vein, Percutaneous Approach (ICD-10-PCS; 2021-05-04)
PROC: 3E033NZ Introduction of Analgesics, Hypnotics, Sedatives into Peripheral Vein, Percutaneous Approach (ICD-10-PCS; 2021-05-04)
DX: M25.552 Pain in left hip (principal)
CPT/HCPCS: 36415; 72131-TC; 73523-TC-FY; 73700-TC-RT; 74177-TC; 80053; 81003; 84703; 85025; 85610; 85730; 86850; 86900; 86901; 99285-25; C9803; J0131; U0003; U0005

== ENCOUNTER 2021-12-17 15:32 | Emergency (ER) | payer OTHER ==
[2021-12-17 15:49] VITALS: BMI 33.0
[2021-12-17] MEDS ORDERED: ACETAMINOPHEN 500 MG TABLET (FP) PO ONE (18:17)
[2021-12-17] MEDS ORDERED: DEXAMETHASONE 4 MG TABLET (FP) PO ONE (18:30)
[2021-12-17] MEDS ORDERED: DEXAMETHASONE SOD PHOSPHATE 10 MG/1 ML VIAL ONE (18:34)
[2021-12-17] MEDS ORDERED: ACETAMINOPHEN 650 MG/20.3 ML ORAL SOLUTION (CUPS) ONE (18:35)
[2021-12-17 18:49] VITALS: BP 171/97; TEMP 98
[2021-12-17] MEDS ORDERED: SODIUM CHLORIDE 1,000 ML IV STA (20:08)
[2021-12-17] MEDS ORDERED: ONDANSETRON *ODT* 4 MG TABLET SL ONE (20:08)
[2021-12-17 20:12] LABS: URINE APPEARANCE CLEAR; URINE BILIRUBIN NEGATIVE (NEGATIVE); URINE COLOR YELLOW; URINE GLUCOSE (UA) TRACE (NEGATIVE); URINE KETONE TRACE (NEGATIVE); URINE LEUK ESTERASE NEGATIVE (NEGATIVE); URINE NITRITE NEGATIVE (NEGATIVE); URINE PROTEIN TRACE (NEGATIVE)
[2021-12-17] MEDS ORDERED: ONDANSETRON 4 MG/2 ML VIAL ONE (20:15)
[2021-12-17] MEDS ORDERED: ONDANSETRON *ODT* 4 MG TABLET ONE (20:18)
[2021-12-17] MEDS ORDERED: KETOROLAC TROMETHAMINE 30 MG/1 ML VIAL IVPUSH ONE (20:42)
[2021-12-17 20:52] LABS: BASO % 0.5 % (0-2.0); EOS % 0.8 % (0-4.5); HEMATOCRIT 38.4 % (32.4-45.2); LYMPH % 12.5 % (8-40); MCH 29.3 pg (25.7-33.7); MCHC 33.9 g/dl (32.0-36.0); MEAN CELL VOLUME 86.4 fl (80-96); MEAN PLT VOLUME 9.3 fl (7.5-11.1); MONO % 4.8 % (3.8-10.2); NEUT % 81.4 % (42.8-82.8); PLATELET COUNT 220 10^3/uL (134-434); RBC 4.44 M/mm3 (3.60-5.2); RDW 13.4 % (11.6-15.6); WHITE BLOOD COUNT 9.1 K/mm3 (4.0-10.0)
[2021-12-17 21:12] LABS: CALCIUM 8.4 mg/dL (8.5-10.1)
[2021-12-17 21:13] LABS: ALBUMIN 3.4 g/dl (3.4-5.0); BLOOD UREA NITROGEN 9.9 mg/dL (7-18)
[2021-12-17 21:15] LABS: CREATININE 0.6 mg/dL (0.55-1.3)
[2021-12-17 21:18] LABS: BILIRUBIN,TOTAL 0.8 mg/dL (0.2-1)
[2021-12-17] MEDS ORDERED: KETOROLAC TROMETHAMINE 30 MG/1 ML VIAL ONE (21:32)
[2021-12-17] MEDS ORDERED: AMOX TR/POT CLAV 875MG/125MG TABLETS (FP) PO ONE (21:35)
[2021-12-17] MEDS ORDERED: AMOX TR/POT CLAV 875MG/125MG TABLETS (FP) ONE (21:37)
[2021-12-17 22:00] LABS: ANISOCYTOSIS 1+; MACROCYTOSIS 0
[2021-12-17 23:25] VITALS: PULSE 91
== END 2021-12-17 21:45 | disposition home or self-care (01) ==
LOC: JER 15:32
PROC: 3E0333Z Introduction of Anti-inflammatory into Peripheral Vein, Percutaneous Approach (ICD-10-PCS; principal; 2021-12-17)
PROC: 3E0337Z Introduction of Electrolytic and Water Balance Substance into Peripheral Vein, Percutaneous Approach (ICD-10-PCS; 2021-12-17)
DX: J03.90 Acute tonsillitis, unspecified (principal)
CPT/HCPCS: 36415; 71046-TC-FY; 80053; 81003; 84703; 85025; 87651; 93005; 93010; 96361; 96374; 99285-25; C9803-CS; Q0162; U0003; U0005

== ENCOUNTER 2022-03-19 04:57 | Emergency (ER) | payer OTHER ==
[2022-03-19 05:16] VITALS: BMI 29.0
[2022-03-19] MEDS ORDERED: ACETAMINOPHEN 1000 MG/100 ML BAG IVPB ONE (05:28)
[2022-03-19] MEDS ORDERED: LACTATED RINGERS SOLUTION 1000 ML INFUS.BAG IV ONE (05:28)
[2022-03-19] MEDS ORDERED: FAMOTIDINE 20 MG/50 ML IVPB 20 MG/50 ML MG IVPB ONE ×2 (05:28→05:34)
[2022-03-19] MEDS ORDERED: ONDANSETRON 4 MG/2 ML VIAL IVPUSH ONE (05:28)
[2022-03-19] MEDS ORDERED: ONDANSETRON 4 MG/2 ML VIAL ONE (05:34)
[2022-03-19] MEDS ORDERED: ACETAMINOPHEN INJECTION 100 ML IVPB ONE (05:34)
[2022-03-19 06:40] LABS: BASO % 0.8 % (0-2.0); HEMATOCRIT 40.5 % (32.4-45.2); HEMOGLOBIN 13.1 GM/dL (10.7-15.3); MCH 28.7 pg (25.7-33.7); MCHC 32.4 g/dl (32.0-36.0); MEAN CELL VOLUME 88.5 fl (80-96); MEAN PLT VOLUME 9.1 fl (7.5-11.1); MONO % 8.6 % (3.8-10.2); NEUT % 47.6 % (42.8-82.8); PLATELET COUNT 271 10^3/uL (134-434); RBC 4.58 M/mm3 (3.60-5.2); RDW 13.6 % (11.6-15.6); WHITE BLOOD COUNT 5.2 K/mm3 (4.0-10.0)
[2022-03-19 06:47] VITALS: BP 131/68; PULSE 74; RESP 20; TEMP 97.9
[2022-03-19 07:07] LABS: CHLORIDE 109 mmol/L (98-107); SODIUM 138 mmol/L (136-145)
[2022-03-19 07:09] LABS: CALCIUM 8.1 mg/dL (8.5-10.1); LIPASE 175 U/L (73-393)
[2022-03-19 07:10] LABS: CO2 23 mmol/L (21-32); GLUCOSE,RANDOM 152 mg/dL (74-106); MAGNESIUM 2.2 mg/dL (1.8-2.4)
[2022-03-19 07:12] LABS: CREATININE 0.6 mg/dL (0.55-1.3); PHOSPHOROUS 4.1 mg/dL (2.5-4.9); SGOT/AST 62 U/L (15-37); SGPT/ALT 30 U/L (13-61)
[2022-03-19 07:14] LABS: BILIRUBIN,TOTAL 0.3 mg/dL (0.2-1); TOT PROT 6.7 g/dl (6.4-8.2)
[2022-03-19 07:15] LABS: ALK PHOS 57 U/L (45-117)
[2022-03-19 07:16] LABS: ANION GAP 5 MMOL/L (8-16)
[2022-03-19 08:17] LABS: PH,URINE 5.5 (5.0-8.0); URINE APPEARANCE CLEAR; URINE BILIRUBIN NEGATIVE (NEGATIVE); URINE COLOR YELLOW; URINE GLUCOSE (UA) NEGATIVE (NEGATIVE); URINE KETONE NEGATIVE (NEGATIVE); URINE LEUK ESTERASE NEGATIVE (NEGATIVE); URINE NITRITE NEGATIVE (NEGATIVE); URINE PROTEIN NEGATIVE (NEGATIVE); URINE UROBILINOGEN 0.2 mg/dL (0.2-1.0)
[2022-03-19] MEDS ORDERED: METOCLOPRAMIDE HCL INJECTION 10 MG/2 ML VIAL IVPB ONE (08:24)
[2022-03-19] MEDS ORDERED: METOCLOPRAMIDE HCL INJECTION 10 MG/2 ML VIAL ONE (09:02)
== END 2022-03-19 12:45 | disposition home or self-care (01) ==
LOC: JER 04:57
PROC: 3E033GC Introduction of Other Therapeutic Substance into Peripheral Vein, Percutaneous Approach (ICD-10-PCS; principal; 2022-03-19)
DX: R10.13 Epigastric pain (principal); R11.10 Vomiting, unspecified; R19.7 Diarrhea, unspecified
CPT/HCPCS: 0241U-QW; 36415; 71045-TC-FY; 74177-TC; 80053; 81003; 83690; 83735; 84100; 84132; 84484; 84703; 85025; 87086; 93005; 93010; 99285-25; Q9967

== ENCOUNTER 2022-04-16 04:46 | Day surgery (SDC) | payer OTHER ==
[2022-04-15 08:58] VITALS: BMI 34.2
[2022-04-16 12:33] VITALS: TEMP 98
[2022-04-16 15:34] VITALS: BP 106/52; PULSE 64; RESP 11
== END 2022-04-16 15:34 | disposition home or self-care (01) ==
LOC: JASU-ENDO 04:46
PROVIDERS: ATTEND Internal Medicine Gastroenterology
PROC: 0DJD8ZZ Inspection of Lower Intestinal Tract, Via Natural or Artificial Opening Endoscopic (ICD-10-PCS; principal; 2022-04-16 13:00)
DX: K92.1 Melena (principal); K57.30 Diverticulosis of large intestine without perforation or abscess without bleeding; K64.8 Other hemorrhoids
CPT/HCPCS: 81025

== ENCOUNTER 2022-08-22 17:35 | Emergency (ER) | payer OTHER ==
[2022-08-22 17:44] VITALS: BP 127/68; PULSE 74; RESP 16; TEMP 97.9; BMI 32.1
[2022-08-22] MEDS ORDERED: FENTANYL CITRATE/PF 50 MCG/ML VIAL ONE (19:13)
[2022-08-22 19:30] LABS: HEMATOCRIT 41.4 % (32.4-45.2); HEMOGLOBIN 13.3 GM/dL (10.7-15.3); MCH 27.3 pg (25.7-33.7); MEAN CELL VOLUME 85.2 fl (80-96); MEAN PLT VOLUME 9.3 fl (7.5-11.1); PLATELET COUNT 269 10^3/uL (134-434); RBC 4.85 M/mm3 (3.60-5.2); RDW 14.3 % (11.6-15.6); WHITE BLOOD COUNT 5.1 K/mm3 (4.0-10.0)
[2022-08-22 19:55] LABS: ALBUMIN 3.6 g/dl (3.4-5.0); CALCIUM 8.9 mg/dL (8.5-10.1)
[2022-08-22 19:56] LABS: BLOOD UREA NITROGEN 13.2 mg/dL (7-18)
[2022-08-22 19:59] LABS: CREATININE 0.6 mg/dL (0.55-1.3)
[2022-08-22 20:00] LABS: BILIRUBIN,TOTAL 0.3 mg/dL (0.2-1); TOT PROT 7.1 g/dl (6.4-8.2)
[2022-08-22] MEDS ORDERED: DOXYCYCLINE HYCLATE 100 MG CAPSULE PO ONE ×2 (21:20→21:22)
== END 2022-08-22 21:59 | disposition home or self-care (01) ==
LOC: JERFT 17:35
PROC: 3E033GC Introduction of Other Therapeutic Substance into Peripheral Vein, Percutaneous Approach (ICD-10-PCS; principal; 2022-08-22)
DX: L05.01 Pilonidal cyst with abscess (principal)
CPT/HCPCS: 36415; 72193-TC; 80053; 84703; 85027; 96374; 99285-25; Q9967

== ENCOUNTER 2022-09-29 11:21 | Emergency (ER) | payer OTHER ==
[2022-09-29 11:28] VITALS: BMI 29.9
[2022-09-29] MEDS ORDERED: ONDANSETRON 4 MG/2 ML VIAL IVPUSH ONE (12:25)
[2022-09-29] MEDS ORDERED: SODIUM CHLORIDE 0.9% 500 ML INFUS.BAG IV ONE (12:25)
[2022-09-29] MEDS ORDERED: ACETAMINOPHEN 1000 MG/100 ML BAG IVPB ONE (12:25)
[2022-09-29] MEDS ORDERED: MAG HYDROX/AL HYDROX/SIMETH 30 ML UNIT-DOSE CUP PO ONE (12:42)
[2022-09-29] MEDS ORDERED: MAG HYDROX/AL HYDROX/SIMETH 30 ML UNIT-DOSE CUP ONE (13:10)
[2022-09-29] MEDS ORDERED: ONDANSETRON 4 MG/2 ML VIAL ONE (13:11)
[2022-09-29 13:12] LABS: BASO % 0.8 % (0-2.0); HEMATOCRIT 37.9 % (32.4-45.2); HEMOGLOBIN 12.8 GM/dL (10.7-15.3); LYMPH % 48.2 % (8-40); MCH 28.9 pg (25.7-33.7); MCHC 33.7 g/dl (32.0-36.0); MEAN CELL VOLUME 85.9 fl (80-96); MEAN PLT VOLUME 9.5 fl (7.5-11.1); MONO % 7.5 % (3.8-10.2); NEUT % 40.5 % (42.8-82.8); PLATELET COUNT 244 10^3/uL (134-434); RBC 4.41 M/mm3 (3.60-5.2); RDW 13.5 % (11.6-15.6); WHITE BLOOD COUNT 3.4 K/mm3 (4.0-10.0)
[2022-09-29] MEDS ORDERED: ACETAMINOPHEN INJECTION 100 ML IVPB ONE (13:12)
[2022-09-29 13:30] LABS: CALCIUM 8.9 mg/dL (8.5-10.1)
[2022-09-29 13:31] LABS: ALBUMIN 3.5 g/dl (3.4-5.0); BLOOD UREA NITROGEN 8.8 mg/dL (7-18)
[2022-09-29 13:31] LABS: EPI CELLS 25 /uL (0-25.1); HYALINE CASTS 2 /uL (0-3.1); PH,URINE 5.5 (5.0-8.0); URINE APPEARANCE CLEAR; URINE BACTERIA 62 /uL (0-1359); URINE BILIRUBIN NEGATIVE (NEGATIVE); URINE COLOR YELLOW; URINE GLUCOSE (UA) NEGATIVE (NEGATIVE); URINE KETONE NEGATIVE (NEGATIVE); URINE LEUK ESTERASE 1+ (NEGATIVE); URINE NITRITE NEGATIVE (NEGATIVE); URINE PROTEIN NEGATIVE (NEGATIVE); URINE RBC 13 /uL (0-23.9); URINE UROBILINOGEN 0.2 mg/dL (0.2-1.0); URINE WBC 46 /uL (0-25.8)
[2022-09-29 13:34] LABS: CREATININE 0.5 mg/dL (0.55-1.3)
[2022-09-29 13:36] LABS: BILIRUBIN,TOTAL 0.6 mg/dL (0.2-1); TOT PROT 6.8 g/dl (6.4-8.2)
[2022-09-29] MEDS ORDERED: FAMOTIDINE 20 MG/50 ML IVPB 20 MG/50 ML MG IVPB ONE ×2 (14:16→14:23)
[2022-09-29] MEDS ORDERED: morphine CARPU-JECT 2 MG/1 ML DISP.SYRIN IVPUSH ONE (14:51)
[2022-09-29 15:14] VITALS: BP 117/74; PULSE 64; RESP 17; TEMP 98.7
== END 2022-09-29 16:58 | disposition home or self-care (01) ==
LOC: JER 11:21
PROC: 3E033GC Introduction of Other Therapeutic Substance into Peripheral Vein, Percutaneous Approach (ICD-10-PCS; principal; 2022-09-29)
PROC: 3E033GC Introduction of Other Therapeutic Substance into Peripheral Vein, Percutaneous Approach (ICD-10-PCS; 2022-09-29)
PROC: 3E033GC Introduction of Other Therapeutic Substance into Peripheral Vein, Percutaneous Approach (ICD-10-PCS; 2022-09-29)
PROC: 3E033GC Introduction of Other Therapeutic Substance into Peripheral Vein, Percutaneous Approach (ICD-10-PCS; 2022-09-29)
DX: A08.4 Viral intestinal infection, unspecified (principal); R10.13 Epigastric pain; R10.32 Left lower quadrant pain; R11.2 Nausea with vomiting, unspecified; R19.7 Diarrhea, unspecified; Z20.822 Contact with and (suspected) exposure to COVID-19
CPT/HCPCS: 0241U-QW; 36415; 74177-TC; 80053; 81003; 84703; 85025; 87086; 96365; 96375; 99285-25; Q9967

== ENCOUNTER 2022-10-10 06:13 | Emergency (ER) | payer OTHER ==
[2022-10-10] MEDS ORDERED: ACETAMINOPHEN 500 MG TABLET (FP) PO ONE (06:24)
[2022-10-10 06:26] VITALS: RESP 18; BMI 29.2
[2022-10-10] MEDS ORDERED: ACETAMINOPHEN 500 MG TABLET (FP) ONE (06:26)
[2022-10-10] MEDS ORDERED: KETOROLAC TROMETHAMINE 15 MG/ML VIAL IM ONE (06:49)
[2022-10-10] MEDS ORDERED: KETOROLAC TROMETHAMINE 15 MG/ML VIAL ONE (06:51)
[2022-10-10] MEDS ORDERED: LIDOCAINE 5% TOPICAL PATCH TP ONE (07:19)
[2022-10-10] MEDS ORDERED: diazePAM 2 MG TABLET PO ONE (07:19)
[2022-10-10] MEDS ORDERED: LIDOCAINE 5% TOPICAL PATCH ONE (07:32)
[2022-10-10] MEDS ORDERED: diazePAM 2 MG TABLET ONE (07:32)
[2022-10-10 08:32] VITALS: BP 132/75; PULSE 85; TEMP 97.5
[2022-10-10] MEDS ORDERED: LIDOCAINE PATCH REMOVAL MC ONE (22:00)
== END 2022-10-10 08:32 | disposition home or self-care (01) ==
LOC: JER 06:13
PROC: 3E0233Z Introduction of Anti-inflammatory into Muscle, Percutaneous Approach (ICD-10-PCS; principal; 2022-10-10)
DX: M25.511 Pain in right shoulder (principal); M54.12 Radiculopathy, cervical region
CPT/HCPCS: 93005; 93010; 96372; 99284-25

== ENCOUNTER 2023-05-24 12:30 | Emergency (ER) | payer OTHER ==
[2023-05-24 12:47] VITALS: RESP 18; BMI 34.9
[2023-05-24] MEDS ORDERED: ALBUTEROL SO4 2.5/IPRATROPIUM 0.5 INH SOL 3 ML VIAL.NEB. NEB ONE ×2 (14:54→15:02)
[2023-05-24] MEDS ORDERED: DEXAMETHASONE SOD PHOSPHATE 10 MG/1 ML VIAL IVPUSH ONE ×2 (14:56→15:12)
[2023-05-24] MEDS ORDERED: DEXAMETHASONE SOD PHOSPHATE 10 MG/1 ML VIAL ONE ×2 (15:02→15:37)
[2023-05-24] MEDS ORDERED: SODIUM CHLORIDE 1,000 ML IV STA (15:12)
[2023-05-24] MEDS ORDERED: ACETAMINOPHEN 1000 MG/100 ML BAG IVPB ONE (15:37)
[2023-05-24] MEDS ORDERED: AZITHROMYCIN 500 MG TABLET PO ONE (15:38)
[2023-05-24] MEDS ORDERED: AZITHROMYCIN 500 MG TABLET ONE (15:39)
[2023-05-24] MEDS ORDERED: ONDANSETRON 4 MG/2 ML VIAL IVPUSH ONE (15:43)
[2023-05-24] MEDS ORDERED: ACETAMINOPHEN INJECTION 100 ML IVPB ONE (15:53)
[2023-05-24] MEDS ORDERED: ONDANSETRON 4 MG/2 ML VIAL ONE (15:53)
[2023-05-24 16:21] LABS: BASO % 0.9 % (0-2.0); EOS % 0.6 % (0-4.5); HEMATOCRIT 39.8 % (32.4-45.2); HEMOGLOBIN 13.1 GM/dL (10.7-15.3); MCH 28.9 pg (25.7-33.7); MEAN CELL VOLUME 87.4 fl (80-96); MEAN PLT VOLUME 8.8 fl (7.5-11.1); MONO % 6.8 % (3.8-10.2); NEUT % 55.7 % (42.8-82.8); PLATELET COUNT 323 10^3/uL (134-434); RBC 4.55 M/mm3 (3.60-5.2); RDW 13.4 % (11.6-15.6); WHITE BLOOD COUNT 7.2 K/mm3 (4.0-10.0)
[2023-05-24 16:58] LABS: POTASSIUM 3.9 mmol/L (3.5-5.1)
[2023-05-24 17:00] LABS: ALBUMIN 3.4 g/dl (3.4-5.0); CALCIUM 8.9 mg/dL (8.5-10.1)
[2023-05-24 17:03] LABS: CREATININE 0.6 mg/dL (0.55-1.3)
[2023-05-24 17:05] LABS: BILIRUBIN,TOTAL 0.4 mg/dL (0.2-1); TOT PROT 6.7 g/dl (6.4-8.2)
[2023-05-24 18:28] VITALS: BP 105/82; PULSE 82; TEMP 98.2
== END 2023-05-24 18:30 | disposition home or self-care (01) ==
LOC: JERFT 12:30
PROC: 3E033NZ Introduction of Analgesics, Hypnotics, Sedatives into Peripheral Vein, Percutaneous Approach (ICD-10-PCS; principal; 2023-05-24)
PROC: 3E033GC Introduction of Other Therapeutic Substance into Peripheral Vein, Percutaneous Approach (ICD-10-PCS; 2023-05-24)
PROC: 3E033GC Introduction of Other Therapeutic Substance into Peripheral Vein, Percutaneous Approach (ICD-10-PCS; 2023-05-24)
PROC: 3E0337Z Introduction of Electrolytic and Water Balance Substance into Peripheral Vein, Percutaneous Approach (ICD-10-PCS; 2023-05-24)
PROC: 3E023GC Introduction of Other Therapeutic Substance into Muscle, Percutaneous Approach (ICD-10-PCS; 2023-05-24)
PROC: 3E0F7GC Introduction of Other Therapeutic Substance into Respiratory Tract, Via Natural or Artificial Opening (ICD-10-PCS; 2023-05-24)
DX: J20.9 Acute bronchitis, unspecified (principal); R05.9 Cough, unspecified; R07.89 Other chest pain; R50.9 Fever, unspecified; Z20.822 Contact with and (suspected) exposure to COVID-19
CPT/HCPCS: 0241U-QW; 36415; 71046-TC-FY; 80053; 85025; 93005; 93010; 99285-25; J1100

== ENCOUNTER 2023-07-03 08:03 | Emergency (ER) | payer OTHER ==
[2023-07-03 08:28] VITALS: BMI 33.8
[2023-07-03] MEDS ORDERED: ONDANSETRON *ODT* 4 MG TABLET SL ONE (09:22)
[2023-07-03] MEDS ORDERED: IBUPROFEN 400 MG TABLET (FP) PO ONE (09:27)
[2023-07-03] MEDS ORDERED: ONDANSETRON *ODT* 4 MG TABLET ONE (09:27)
[2023-07-03] MEDS ORDERED: ACETAMINOPHEN 500 MG TABLET (FP) ONE (09:27)
[2023-07-03] MEDS: ACETAMINOPHEN 500 MG TABLET (FP) PO ONE ×2 (09:31→10:29)
[2023-07-03] MEDS: IBUPROFEN 400 MG TABLET (FP) PO ONE ×2 (09:33→10:29)
[2023-07-03] MEDS ORDERED: FAMOTIDINE 20 MG/50 ML IVPB 20 MG/50 ML MG IVPB ONE ×2 (10:21→10:35)
[2023-07-03] MEDS ORDERED: SODIUM CHLORIDE 0.9% 500 ML INFUS.BAG IV ONE (10:21)
[2023-07-03] MEDS ORDERED: KETOROLAC TROMETHAMINE 30 MG/1 ML VIAL IVPUSH ONE (10:29)
[2023-07-03] MEDS ORDERED: KETOROLAC TROMETHAMINE 30 MG/1 ML VIAL ONE (10:35)
[2023-07-03 11:08] LABS: BASO % 0.5 % (0-2.0); EOS % 0.5 % (0-4.5); HEMATOCRIT 40.1 % (32.4-45.2); HEMOGLOBIN 13.4 GM/dL (10.7-15.3); LYMPH % 24.2 % (8-40); MCHC 33.5 g/dl (32.0-36.0); MEAN CELL VOLUME 86.5 fl (80-96); MEAN PLT VOLUME 8.6 fl (7.5-11.1); MONO % 15.9 % (3.8-10.2); NEUT % 58.9 % (42.8-82.8); PLATELET COUNT 194 10^3/uL (134-434); RBC 4.63 M/mm3 (3.60-5.2); RDW 13.6 % (11.6-15.6); WHITE BLOOD COUNT 3.7 K/mm3 (4.0-10.0)
[2023-07-03 11:25] LABS: POTASSIUM 3.8 mmol/L (3.5-5.1)
[2023-07-03 11:27] LABS: ALBUMIN 3.4 g/dl (3.4-5.0); BLOOD UREA NITROGEN 8.8 mg/dL (7-18)
[2023-07-03 11:30] LABS: CREATININE 0.6 mg/dL (0.55-1.3)
[2023-07-03 11:32] LABS: BILIRUBIN,TOTAL 0.6 mg/dL (0.2-1); TOT PROT 6.9 g/dl (6.4-8.2)
[2023-07-03] MEDS ORDERED: DEXTROMETHORPHAN/PROMETHAZINE 15 MG/6.25 MG/5 ML SYRUP PO ONE (11:35)
[2023-07-03 14:20] VITALS: BP 127/86; PULSE 83; RESP 18; TEMP 98
== END 2023-07-03 12:58 | disposition home or self-care (01) ==
LOC: JER 08:03 → JERFT 08:03
PROC: 3E033GC Introduction of Other Therapeutic Substance into Peripheral Vein, Percutaneous Approach (ICD-10-PCS; principal; 2023-07-03)
PROC: 3E033GC Introduction of Other Therapeutic Substance into Peripheral Vein, Percutaneous Approach (ICD-10-PCS; 2023-07-03)
DX: R09.81 Nasal congestion (principal); R05.9 Cough, unspecified; R11.10 Vomiting, unspecified; U07.1 COVID-19
CPT/HCPCS: 0241U-QW; 36415; 80053; 85025; 99284-25; Q0162

== ENCOUNTER 2024-04-29 04:46 | Day surgery (SDC) | payer OTHER ==
[2024-04-28 09:33] VITALS: BMI 35.9
[2024-04-29 08:40] VITALS: RESP 18; TEMP 97.8
[2024-04-29 09:24] VITALS: BP 108/69; PULSE 69
== END 2024-04-29 09:31 | disposition home or self-care (01) ==
LOC: JASU-ENDO 04:46
PROVIDERS: ATTEND Internal Medicine Gastroenterology
PROC: 0DB78ZX Excision of Stomach, Pylorus, Via Natural or Artificial Opening Endoscopic, Diagnostic (ICD-10-PCS; 2024-04-29)
PROC: 0DB68ZX Excision of Stomach, Via Natural or Artificial Opening Endoscopic, Diagnostic (ICD-10-PCS; 2024-04-29)
PROC: 0DB98ZX Excision of Duodenum, Via Natural or Artificial Opening Endoscopic, Diagnostic (ICD-10-PCS; principal; 2024-04-29 08:00)
DX: K29.50 Unspecified chronic gastritis without bleeding (principal); K44.9 Diaphragmatic hernia without obstruction or gangrene
CPT/HCPCS: 81025; 88305-TC; 88342-TC

== ENCOUNTER → 2025-03-30 | Day surgery (SDC) | payer OTHER | END | disposition home or self-care (01) | LOC: JMAMMO-SUR 09:12 | PROVIDERS: ATTEND Obstetrics & Gynecology | PROC: 07D63ZX Extraction of Left Axillary Lymphatic, Percutaneous Approach, Diagnostic (ICD-10-PCS; principal; 2025-03-30) | DX: R59.0 Localized enlarged lymph nodes (principal) | CPT/HCPCS: 19083; 76942-TC; 87899; 88305-TC; A4648 ==